=== PATIENT | female | born 1955 | race Caucasian/White ===

== ENCOUNTER → 2017-12-20 11:39 | Outpatient (CLI) | payer MEDICARE, SELFPAY ==
[2017-12-20 12:20] LABS: Absolute Lymphocyte Count 2.99 X10^3/ul (0.83-4.51); Absolute Neutrophil Count 4.3 X10^3/uL (2.0-7.7); Basophil# 0.02 X10^3/uL; Basophil% 0.2 % (0-1); Eosinophil# 0.18 X10^3/uL; Eosinophils% 2.2 % (0-5); Hematocrit 43.9 % (37-47); Hemoglobin 14.6 g/dl (12.0-15.0); Lymphocyte # 2.99 X10^3/ul (4.0); Lymphocyte % 37.3 % (19-41); Mean Corp Hgb Conc 33.3 g/gl (32-36); Mean Corpuscular Hgb 29.3 pg (27.0-32.0); Mean Corpuscular Volume 88.2 fL (81-99); Mean Platelet Vol. 9.9 fl (6.2-12.0); Monocyte# 0.56 X10^3/uL; Neutrophil # 4.26 X10^3/uL (2.7-7.7); Neutrophil % 53.2 % (47-70); Platelet Count 281 K/mm3 (150-450); RBC Distribution Width SD 44.6 fl (35.1-43.9); Red Blood Count 4.98 M/mm3 (4.2-5.4)
[2017-12-20 12:32] LABS: POSITIVE COUNT NO; POSITIVE DIFFERENTIAL NO; POSITIVE MORPHOLOGY NO
[2017-12-20 12:54] LABS: Vitamin D,25 Hydroxy 17.1 ng/mL (29.95-100.01)
[2017-12-20 13:10] LABS: ALB/GLOB Ratio 0.9 RATIO (0.9-2.4); AST(SGOT) 12 U/L (15-37); Alanine Aminotransfer ALT/SGPT 15 U/L (13-56); Albumin, Serum 3.7 g/dL (3.2-5.0); Alkaline Phosphatase 97 U/L (45-117); Anion Gap 9 (5-15); BUN 11 mg/dL (7-18); BUN/Creat Ratio 14.3 RATIO (10-20); Calcium,Total 8.7 mg/dL (8.5-10.1); Chloride 104 mmol/L (98-107); Creatinine, Serum 0.77 mg/dL (0.55-1.02); EST Glomerular Filtration Rate 81 mL/min (>60); Est Glom Filt Rate - Afr Amer 97 mL/min (>60); Glucose 78 mg/dL (74-106); Potassium 3.9 mmol/L (3.5-5.1); Protein, Total 7.7 g/dL (6.4-8.2); Sodium Level 140 mmol/L (136-145); Thyroid Stim Hormone (TSH) 3.69 uIU/mL (0.358-3.74)
[2017-12-21 14:43] LABS: Hep C Antibodies <0.1 s/co ratio (0.0-0.9)
== END ==
PROVIDERS: Visit Provider Family Medicine Geriatric Medicine
DX: E55.9 Vitamin D deficiency, unspecified (principal); R53.83 Other fatigue; Z13.89 Encounter for screening for other disorder
CPT/HCPCS: 36415; 80053; 82306; 84443; 85025; 86803

== ENCOUNTER → 2018-11-10 16:43 | Outpatient (CLI) | payer MEDICARE, SELFPAY ==
[2018-11-10 17:18] LABS: Absolute Lymphocyte Count 2.12 X10^3/ul (0.83-4.51); Absolute Neutrophil Count 3.3 X10^3/uL (2.0-7.7); Basophil# 0.02 X10^3/uL; Basophil% 0.3 % (0-1); Eosinophil# 0.31 X10^3/uL; Hematocrit 44.2 % (37-47); Hemoglobin 14.1 g/dl (12.0-15.0); Lymphocyte # 2.12 X10^3/ul (4.0); Mean Corp Hgb Conc 31.9 g/gl (32-36); Mean Corpuscular Hgb 28.6 pg (27.0-32.0); Mean Corpuscular Volume 89.7 fL (81-99); Mean Platelet Vol. 10.6 fl (6.2-12.0); Monocyte# 0.47 X10^3/uL; Monocyte% 7.5 % (0-10); Neutrophil # 3.31 X10^3/uL (2.7-7.7); Neutrophil % 53.2 % (47-70); Platelet Count 235 K/mm3 (150-450); RBC Distribution Width CV 13.6 % (11.6-14.6); RBC Distribution Width SD 44.1 fl (35.1-43.9); Red Blood Count 4.93 M/mm3 (4.2-5.4); White Blood Count 6.2 K/mm3 (4.4-11.0)
[2018-11-10 17:21] LABS: POSITIVE COUNT NO; POSITIVE DIFFERENTIAL NO; POSITIVE MORPHOLOGY NO
[2018-11-10 17:49] LABS: ALB/GLOB Ratio 0.9 RATIO (0.9-2.4); AST(SGOT) 24 U/L (15-37); Alanine Aminotransfer ALT/SGPT 20 U/L (13-56); Albumin, Serum 3.4 g/dL (3.2-5.0); Alkaline Phosphatase 103 U/L (45-117); Anion Gap 6 (5-15); BUN 14 mg/dL (7-18); BUN/Creat Ratio 16.4 RATIO (10-20); Calcium,Total 8.4 mg/dL (8.5-10.1); Chloride 106 mmol/L (98-107); Creatinine, Serum 0.86 mg/dL (0.55-1.02); EST Glomerular Filtration Rate 71 mL/min (>60); Est Glom Filt Rate - Afr Amer 86 mL/min (>60); Globulin 3.9 g/dL (2.2-4.2); Glucose 94 mg/dL (74-106); Potassium 3.9 mmol/L (3.5-5.1); Protein, Total 7.3 g/dL (6.4-8.2); Sodium Level 141 mmol/L (136-145); Thyroid Stim Hormone (TSH) 2.51 uIU/mL (0.358-3.74)
== END ==
PROVIDERS: Visit Provider Family Medicine Geriatric Medicine
DX: G40.909 Epilepsy, unspecified, not intractable, without status epilepticus (principal)
CPT/HCPCS: 36415; 80053; 84443; 85025; 87086; 87088

== ENCOUNTER → 2018-12-29 12:10 | Outpatient (CLI) | payer MEDICARE, MEDICAID, SELFPAY ==
--- NOTE | 2018-12-29 12:14 | CT_ITS ---
STUDY: CT BRAIN WITHOUT CONTRAST REASON FOR EXAM: Female, 63 years old. Seizure RADIATION DOSAGE (If Supplied By Facility): CTDIvol = ( 44.99 ) mGy, DLP = ( 796.11 ) mGycm TECHNIQUE: Transaxial CT imaging of the brain was performed without administration of intravenous contrast material. Individualized dose optimization techniques were used for this CT. COMPARISON: No relevant priors. FINDINGS: Normal soft tissue structures. Normal calvarium. There appears to be right posterior parietal encephalomalacia or schizencephaly with ex vacuo dilatation of the occipital horn of the right lateral ventricle. Normal white matter tracts of the cerebral hemispheres. Normal basal ganglia and thalami. Normal brainstem. Normal cerebellum. There is no intracranial hemorrhage. There are no findings of an acute ischemic infarction. Bilateral phthisis bulbi. Normal visualized paranasal sinuses. 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 Follow-up MRI of the brain without a be helpful nonemergently if clinically warranted. Otherwise no acute disease. Electronically Signed: Jamie Mckeon MD at 16:32 EDT , Service support ,
== END ==
PROVIDERS: Family Provider Family Medicine Geriatric Medicine; PCP Family Medicine Geriatric Medicine; Referring Provider Family Medicine Geriatric Medicine; Visit Provider Family Medicine Geriatric Medicine
DX: G40.909 Epilepsy, unspecified, not intractable, without status epilepticus (principal); M54.2 Cervicalgia
CPT/HCPCS: 70450

== ENCOUNTER → 2019-04-25 16:13 | Outpatient (CLI) | payer MEDICARE, SELFPAY ==
[2019-04-25 17:13] LABS: Absolute Lymphocyte Count 1.83 X10^3/uL (0.83-4.51); Absolute Neutrophil Count 3.8 X10^3/uL (2.0-7.7); Basophil# 0.01 X10^3/uL; Basophil% 0.2 % (0-1); Eosinophil# 0.14 X10^3/uL; Eosinophils% 2.3 % (0-5); Hemoglobin 14.5 g/dL (12.0-15.0); Lymphocyte # 1.83 X10^3/ul (4.0); Lymphocyte % 29.6 % (19-41); Mean Corp Hgb Conc 33.7 g/dL (32-36); Mean Platelet Vol. 10.1 fl (6.2-12.0); Monocyte% 6.5 % (0-10); NRBC Flagged by Analyzer 0 % (0-5); Neutrophil % 61.2 % (47-70); Platelet Count 203 K/mm3 (150-450); RBC Distribution Width CV 12.7 % (11.6-14.6); RBC Distribution Width SD 41.7 fl (35.1-43.9); Red Blood Count 4.83 M/mm3 (4.2-5.4); White Blood Count 6.2 K/mm3 (4.4-11.0)
[2019-04-25 17:55] LABS: AST(SGOT) 12 U/L (15-37); Alanine Aminotransfer ALT/SGPT 21 U/L (13-56); Albumin, Serum 3.5 g/dL (3.2-5.0); Alkaline Phosphatase 104 U/L (45-117); Anion Gap 10 (5-15); BUN 12 mg/dL (7-18); BUN/Creat Ratio 14.8 RATIO (10-20); Calcium,Total 8.3 mg/dL (8.5-10.1); Chloride 108 mmol/L (98-107); Creatinine, Serum 0.81 mg/dL (0.55-1.02); EST Glomerular Filtration Rate 75 mL/min (>60); Est Glom Filt Rate - Afr Amer 91 mL/min (>60); Globulin 3.6 g/dL (2.2-4.2); Glucose 118 mg/dL (74-106); Potassium 3.6 mmol/L (3.5-5.1); Protein, Total 7.1 g/dL (6.4-8.2); Sodium Level 141 mmol/L (136-145); Thyroid Stim Hormone (TSH) 2.84 uIU/mL (0.358-3.74)
[2019-04-25 18:07] LABS: Vitamin D,25 Hydroxy 9.4 ng/mL (29.95-100.01)
== END ==
PROVIDERS: Family Provider Family Medicine Geriatric Medicine; PCP Family Medicine Geriatric Medicine; Visit Provider Family Medicine Geriatric Medicine
DX: E55.9 Vitamin D deficiency, unspecified (principal); R53.83 Other fatigue
CPT/HCPCS: 36415; 80053; 82306; 84443; 85025

== ENCOUNTER 2020-01-20 22:14 | Inpatient (IN) | payer MEDICARE, MEDICAID, SELFPAY ==
[2020-01-20 22:15] VITALS: BP 110/89; PULSE 99; RESP 15; TEMP 36.4; O2SAT 95; BMI 29.7
--- NOTE | 2020-01-20 22:29 | EKG12_ITS ---
Test Reason : Blood Pressure : / mmHG Vent. Rate : 082 BPM Atrial Rate : 082 BPM P-R Int : 134 ms QRS Dur : 082 ms QT Int : 376 ms P-R-T Axes : 033 011 019 degrees QTc Int : 439 ms Sinus rhythm with Fusion complexes Nonspecific ST and T wave abnormality Abnormal ECG Confirmed by ABDIRAHMAN SPARROW, ELEANOR ([id number]), associate entertainment editor CELINE ANTHONY ([id number]) on 01/23/2020 9:05:05 AM Referred By: Confirmed By:ELEANOR GARY MD
--- NOTE | 2020-01-20 22:29 | CT_ITS ---
We are attempting to reach an attending provider to discuss findings. An addendum with communication details will be sent when the communication is complete. STUDY: CT ABDOMEN AND PELVIS WITH CONTRAST REASON FOR EXAM: Female, 64 years old. ABD DISTENTION NOTICED BY CAREGIVER, HX MRDD RADIATION DOSAGE (If Supplied By Facility): CTDIvol = ( 22.67 ) mGy, DLP = ( 1607.02 ) mGycm TECHNIQUE: Transaxial images were obtained from the dome of the diaphragm to the symphysis pubis without oral contrast. IV 100mL Isovue-370 was administered. Sagittal and coronal images were reconstructed. Individualized dose optimization techniques were used for this CT. COMPARISON: None. FINDINGS: Bilateral lower lobe atelectasis myocardial megaly with coronary artery calcifications. Normal liver. Normal gallbladder and extrahepatic biliary system. Normal spleen. Mild atrophy of the pancreas, otherwise normal pancreas. Normal bilateral adrenal glands. Normal right kidney. Normal left kidney. Normal distention of the stomach. Fluid within the distal esophagus suggestive of reflux. Distention of some of the small bowel loops approximately 3.5 cm. Distention of the colon diffusely with the exception of a segment of the sigmoid colon which reveals significant narrowing , mild edema of the wall along with the twisting of the corresponding vessels, combination of findings suggestive of sigmoid volvulus versus severe distal obstruction related to a stricture. There is non-visualization of the appendix. There is diffuse atherosclerotic calcification of the abdominal aorta, without a demonstrated aneurysm. Normal inferior vena cava. Normal retroperitoneum. Urinary bladder is decompressed. Normal abdominal wall. There are diffuse degenerative changes of the visualized lumbar spine. CT/Abdomen/Pelvis W IV Cont ONLY IMPRESSION: Severe distal colonic obstruction, zone of transition at the level of the sigmoid with twisting of the vessels raising the concern of sigmoid volvulus. Differential diagnosis includes nonspecific severe obstruction from a sigmoid stenosis or stricture. Clinical correlation recommended. No evidence of free air. Electronically Signed: Yennifer Vinson MD at 0:37 EDT , Service support ,
--- NOTE | 2020-01-20 22:31 | ED.DCSUM_ITS ---
- ER Visit Summary Date of Service: 01/20/20 Chief Complaint: Abdominal distention History of Present Illness: The patient is a 64 F that is legally blind and has intermittent seizures and high cholesterol. She has had prior hip surgery. Reportedly no prior abdominal surgeries. She has a caregiver with her. Patient reportedly had a distended abdomen for 2 to 3 days. Starting on . Denies any nausea or vomiting. No diarrhea. Reportedly no constipation or dysuria. No fever or chills. Patient denies any pain. She has had decreased oral intake. Physical Examination: Older Female accompanied by her caregiver. Vital signs are stable and afebrile. She is in no distress. H EENT exam moist because membranes. She is blind. Neck nontender. Lungs clear to auscultation. Heart regular rhythm rate about 90. Abdomen is distended. Firm. But not tender. I do not see any obvious hernia or. I cannot appreciate a mass but she is very distended. She does have decreased bowel sounds. She is not complaining of any tenderness to palpation. There is no pulsatile mass. She is moving all 4 extremities. She has trace edema in her lower extremities. Neurologically she is awake and alert with no focal motor deficits. Test Results: EKG is a normal sinus rhythm rate of 82 with no acute signs of ischemia. CBC white count of 10. Hemoglobin 14. No bands. Chemistries potassium of 2.9. Normal gap of 8 normal creatinine. Liver enzymes normal. Lipase normal. Lactic acid is elevated 3.2. CAT scan of the abdomen pelvis with IV contrast reveals distended small and large bowel. And an obvious bowel obstruction. I am awaiting the formal radiologist interpretation. I did review the film myself already. Radiologist did call and she believes the patient may have a sigmoid volvulus which the general surgeon I had previously discussed. Emergency Department Course and Treatment: Older female with distended abdomen differential diagnosis would include bowel obstruction, urinary retention, c onstipation versus other etiologies. She will undergo a CAT scan and labs. Currently she does not want anything for pain. After the NG she requested something for nausea was given Zofran IV. Treatment Plan: Patient has an obvious bowel obstruction. I discussed with the general surgeon on-call Dr. Nati Jones. Patient will receive an NG. She will be admitted to the hospitalist with already discussed the care with also. I did go over test results with the patient. Repeat exam of her abdomen at midnight again she remains nontender. Disposition: Admission Impression: Acute abdominal distention secondary to bowel obstruction secondary to acute sigmoid volvulus Legally blind This note was generated with Sp[employer]ly dictation software. It may contain incorrect words, spelling, and punctuation that were not noted in review of the chart prior to signing ED Disposition - Plan for ED Patient:
[2020-01-20 22:46] LABS: Absolute Lymphocyte Count 2.44 X10^3/uL (0.83-4.51); Basophil# 0.05 X10^3/uL; Basophil% 0.5 % (0-1); Differential Indicated SCAN CRITERIA MET; Eosinophil# 0.21 X10^3/uL; Eosinophils% 2.1 % (0-5); Hematocrit 44.8 % (37-47); Hemoglobin 14.5 g/dL (12.0-15.0); Lymphocyte # 2.44 X10^3/ul (4.0); Mean Corp Hgb Conc 32.4 g/dL (32-36); Mean Corpuscular Hgb 29.2 pg (27.0-32.0); Mean Corpuscular Volume 90.3 fL (81-99); Mean Platelet Vol. 10.5 fl (6.2-12.0); Monocyte# 1.38 X10^3/uL; Monocyte% 13.6 % (0-10); NRBC Flagged by Analyzer 0 % (0-5); Neutrophil # 6.03 X10^3/uL (2.7-7.7); Neutrophil % 59.2 % (47-70); POSITIVE COUNT YES; RBC Distribution Width CV 14.4 % (11.6-14.6); RBC Distribution Width SD 47.1 fl (35.1-43.9); Red Blood Count 4.96 M/mm3 (4.2-5.4); White Blood Count 10.2 K/mm3 (4.4-11.0)
[2020-01-20] MEDS: 0.9% Normal Saline 1,000 ML 125 ML IV (23:00)
[2020-01-20 23:09] LABS: Differential Comment SCANNED
[2020-01-20 23:10] LABS: Platelet Estimate ADEQUATE (ADEQ)
[2020-01-20 23:12] LABS: AST(SGOT) 34 U/L (15-37); Alanine Aminotransfer ALT/SGPT 17 U/L (13-56); Albumin, Serum 3.2 g/dL (3.2-5.0); Alkaline Phosphatase 77 U/L (45-117); Anion Gap 8 (5-15); BUN 16 mg/dL (7-18); Bilirubin, Direct 0.11 mg/dL (0.00-0.30); Calcium,Total 8.5 mg/dL (8.5-10.1); Chloride 106 mmol/L (98-107); Creatinine, Serum 1.07 mg/dL (0.55-1.02); EST Glomerular Filtration Rate 55 mL/min (>60); Est Glom Filt Rate - Afr Amer 66 mL/min (>60); Estimated Creatinine Clearance 39.03 ml/min; Globulin 3.9 g/dL (2.2-4.2); Glucose 127 mg/dL (74-106); Lipase 52 U/L (73-393); Potassium 2.9 mmol/L (3.5-5.1); Protein, Total 7.1 g/dL (6.4-8.2); Sodium Level 142 mmol/L (136-145)
[2020-01-20 23:13] LABS: Lactic Acid 3.2 mmol/L (0.4-1.9)
[2020-01-20 23:57] LABS: Bacteria 0 SEEN /hpf (None Seen); Red Blood Cells-Urine 0 SEEN /hpf (0-5)
[2020-01-21] VITALS (12 sets, daily range): BP systolic 100–130; BP diastolic 49–78; PULSE 66–84; RESP 14–18; TEMP 36.3–37.1; O2SAT 92–100; BMI 29.8
--- NOTE | 2020-01-21 | RAD_ITS ---
STUDY: X-RAY - ABDOMEN/PELVIS REASON FOR EXAM: Female, 64 years old. NG TUBE PLACEMENT TECHNIQUE: Single AP view of the abdomen / pelvis. COMPARISON: None. FINDINGS: Mild left basilar density suggestive of atelectasis versus infiltrate. No pleural effusion. A nasogastric tube is seen with the tip within the gastric body junction with the antrum. There is marked diffuse distention of the colon. There is distention of the small bowel within the left side of the abdomen up to a diameter of 3.0 cm. There is no demonstrated free abdominal air. The visualized liver, spleen and kidneys are grossly normal in size and morphology. Normal soft tissue structures. Normal visualized osseous structures. RAD/Abdomen Single View (Portable) IMPRESSION: Diffuse colonic dilatation as described. Please see accompanying CT of the abdomen and pelvis report. Electronically Signed: Yennifer Vinson MD at 0:44 EDT , Service support ,
[2020-01-21 00:13] LABS: Color, Urine Yellow (Yellow); Glucose, Dipstick Normal (Normal); Ketone-Dipstick Negative (Negative); Leukocyte Esterase-Dipstick 25 /ul (Negative); Nitrite-Dipstick Negative (Negative); Occult Blood-Urine Negative /ul (Negative); Protein-Dipstick 30 mg/dl (Negative); Urine Clarity Clear (Clear); Urine Urobilinogen 4 mg/dl (Normal); Urine pH 6.5 (5.0 - 8.0)
[2020-01-21 00:17] LABS: Urine Bilirubin Dipstick 1 mg/dL (Negative)
[2020-01-21 00:19] LABS: White Blood Cells 5-10 SEEN /hpf (0-5)
[2020-01-21] MEDS: Ondansetron 4 MG/2 ML Vial IV (00:19)
[2020-01-21 00:20] LABS: Mucous, Urine RARE /hpf (<or=2+); Squamous Epithelial Cells - UA 0-5 SEEN /hpf (5-10); Transitional Epithelial - Ur 0-5 SEEN /hpf (0-5)
--- NOTE | 2020-01-21 00:55 | HP.PCM_ITS ---
History of Present Illness Date of Admission: 01/21/20 The patient is a 64 year old F presented to the ER accompanied with her caregiver and POA Marilee Harwich. Patient has been living with Marilee for 7 years-spoke with Marilee on the phone. Patient is a poor historian. Marilee did state patient is blind and does have past medical history for mild mental retardation, seizure disorder?her last seizure was about 2 to 3 months ago Marilee describes it as mild to states she became quiet and was chronic confused. Patient normally has Marilee around for bath time. On Wednesday she states her abdomen looked normal on it seemed a little bit distended but today it seemed very distended. She also had decreased p.o. intake today which is not like her per the POA. Patient and POA denies any nausea or vomiting. NG was placed in the ER and returned 400 cc, CT abdomen pelvis was consistent with a sigmoid volvulus with distended stomach, small bowel, colon up to the distal sigmoid. Patient's white blood count was within normal limits, potassium was 2.9 and lactate was 3.2 along with little bit elevated creatinine for the pa tient and she is getting IV fluids. Patient and POA denies any previous colonoscopies, only surgery is a left hip replacement. Past Medical History Medical History: Medical History (Last Updated 01/21/20 @ 01:[address] Nati Manning MD) Mild mental handicap F70 Seizure disorder G40.909 Allergies bee venom protein (honey bee) Allergy (Verified 01/20/20 22:20) Anaphylaxis Home Medications: Ambulatory Orders Medication Instructions Recorded Gabapentin [Neurontin] 300 mg PO BIDCM 01/20/20 Oxcarbazepine 5 ml PO DAILY 01/20/20 Simvastatin [Zocor] 20 mg PO QHS 01/20/20 Surgical History: - - left hip Smoking Status: Never smoker VTE Information - Inpt Only VTE Present on Admission: Yes VTE Mechan Device Prophylaxis: SCD's - Physical Exam Vitals/I&O's: Vital Signs Temp Pulse Resp BP Pulse Ox 97.6 F L 99 15 110/89 H 95 01/20/20 22:15 01/20/20 22:15 01/20/20 22:15 01/20/20 22:15 01/20/20 22:15 Oxygen Delivery Method Room Air Weight: 157 lb 3.033 oz Body Mass Index (BMI) 29.7 General: Alert, Cooperative, No apparent distress HEENT: - - pt is blind Lungs: Normal air movement Cardiovascular: Regular rate Abdomen: Non Tender, Distended Extremities: No clubbing, No cyanosis, No edema Psych/Mental Status: Flat Affect Laboratory Results 01/20/20 22:40: WBC 10.2, RBC 4.96, Hgb 14.5, Hct 44.8, MCV 90.3, MCH 29.2, MCHC 32.4, RDW Std Deviation 47.1 H, RDW Coeff of Jose 14.4, Plt Count TURNER SPLITTER MACHINE OPERATOR, MPV 10.5, Immature Gran % (Auto) 0.600, Neut % (Auto) 59.2, Lymph % (Auto) 24.0, [place] % ( Auto) 13.6 H, Eos % (Auto) 2.1, Baso % (Auto) 0.5, Absolute Neuts (auto) 6.0, Absolute Lymphs (auto) 2.44, Nucleated RBC % 0, Differential Comment SCANNED, Platelet Estimate ADEQUATE 01/20/20 22:40: Sodium 142, Potassium 2.9 L, Chloride 106, Carbon Dioxide 28.0, Anion Gap 8, BUN 16, Creatinine 1.07 H, Estim Creat Clear Calc 39.03, Est GFR (MDRD) Af Amer 66, Est GFR (MDRD) Non-Af 55 L, BUN/Creatinine Ratio 15.0, Glucose 127 H, Calcium 8.5, Total Bilirubin 0.70, Direct Bilirubin 0.11, AST 34, ALT 17, Alkaline Phosphatase 77, Total Protein 7.1, Albumin 3.2, Globulin 3.9, Lipase 52 L 01/20/20 22:40: Lactic Acid 3.2 H* 01/20/20 23:50: Urine Color Yellow, Urine Clarity Clear, Urine pH 6.5, Ur Specific [place] 1.010, Urine Protein 30 H, Urine Glucose (UA) Normal, Urine Ketones Negative, Urine Occult Blood Negative, Urine Nitrite Negative, Urine Bilirubin 1 H, Urine Urobilinogen 4 H, Ur Leukocyte Esterase 25 H, Urine RBC 0 SEEN, Urine WBC 5-10 SEEN, Ur Squamous Epith Cells 0-5 SEEN, Ur Transition Epith Cell 0-5 SEEN, Urine Bacteria 0 SEEN, Urine Mucus RARE Current Medications Sodium Chloride () 1,000 mls @ 125 mls/hr IV .Q8H [facility] Last Admin: 01/20/20 23:00 Dose: 125 mls/hr Documented by: Assessment/Plan 64-year-old female with a sigmoid volvulus I have discussed the above with the patient and patient's POA Marilee Harwich. Plan for decompressive sigmoidoscopy with insertion of rectal tube, discussed with patient she could possibly still need future surgery-- tonight patient is unsure about any future surgery but is agreeable for the sigmoidoscopy. I have explained the risks/benefits of the procedure and described the procedure. I have discussed the risks with the patient, including but not limited to: infection, bleeding, perforation of the GI tract requiring emergency surgery, inability to complete the procedure, injury to any internal organs, complications of anesthesia, etc. - the patient understands and agrees to proceed. I have answered all the patient's questions to the patient's & POA's satisfaction and the patient has no further questions. Nati Manning M.D. Pager: [phone] [facility] [address] [place] [address], [address] [place] [address] Office: [phone]
--- NOTE | 2020-01-21 01:35 | COL_PTH ---
PATIENT: LEATHA KIM LOC: [facility] U#:[id number] AGE/SX: 64/F ROOM: [facility] RE01/21/[address]: Dr. Nati Manning MD : [id number] BED: 1 DIS: 01/27/2020 SPEC #: [id number] RECD: 01/24/20 10:42 STATUS: JARRED REQ #: [id number] DERIAN: 01/21/20 01:[address]: Nati Manning DEPT: SURGICAL PATHOLOGY RECD BY: Bill Cadet ENTERED: 01/25/20 10:27 SP TYPE: COLON OTHR DR: MD Dr. Héctor Gamino Chi, MD Tissues: A - Colon, NOS B - Colon Donuts C - Colon Donuts Procedures: Surgery Specimen Level III Surgery Specimen Level V HEADER OPERATION: Laparoscopic sigmoid colectomy PRE-OP DIAGNOSIS: Sigmoid volvulus TISSUE SUBMITTED: A - Sigmoid colon, staple diaz distal end, B - Distal (rectal) donut, C - Proximal (sigmoid) donut MICROSCOPIC DIAGNOSIS A. Sigmoid colon, colectomy: Segment of colon with mild submucosal edematous changes, clinically sigmoid volvulus. B. Distal (rectal) donut: A donut-shaped piece of colonic donut tissue, no pathologic diagnosis. C. Proximal (sigmoid) donut: A donut-shaped piece of colonic donut tissue, no pathologic diagnosis. SJ:bhaskar 01/26/20 MICROSCOPIC DESCRIPTION Slides are reviewed. GROSS DESCRIPTION A - Received in fixative is one container labeled with the patient's name and designated sigmoid colon. The specimen consists of a segment of colon with attached pericolonic adipose tissue measuring 40 cm in length and 7 to 10 cm in diameter. One resection margin is stapled identified as distal end. The proximal margin is open. The lumen contains fecal material. No mucosal lesion is identified. Sections reveal edematous cut surfaces. Sections of the pericolonic adipose tissue do not reveal any obviously enlarged lymph node. Cat Swamper sections are submitted in seven cassettes as follows: 1 - proximal resection margin, 2 - distal resection margin, 3-6 - bowel wall, 7 - pericolonic adipose tissue. B - Received in fixative is one container labeled with the patient's name and designated distal (rectal) donut. The specimen consists of a donut shaped piece of colonic tissue measuring 2.5 x 2 x 1 cm. Multiple parminder are noted. Cat Swamper sections are submitted in one cassette. C - Received in fixative is one container labeled with the patient's name and designated proximal (sigmoid) donut. The specimen consists of a donut shaped piece of colonic tissue measuring 2 x 2 x 1 cm. Multiple parminder are noted. Cat Swamper sections are submitted in one cassette. / SJ:bhaskar 01/25/20 TC:5 CPT: 31838, 01058 x2
[2020-01-21 01:44] LABS: Magnesium 2.1 mg/dL (1.6-2.6)
--- NOTE | 2020-01-21 02:04 | RAD_ITS ---
STUDY: X-RAY - ABDOMEN/PELVIS REASON FOR EXAM: Female, 64 years old. RECTAL TUBE PLACEMENT TECHNIQUE: Single AP view of the abdomen / pelvis. COMPARISON: 01/21/2020. FINDINGS: Questionable minimal left-sided pleural effusion with left base atelectasis. Persistent distention of the colon and the left-sided small bowel loops demonstrated, less severe compared to prior examination. There is a tubular structure demonstrated along the trajectory of the sigmoid and deep projecting at the right upper quadrant. There is a nasogastric tube in place with the tip at the level of the gastric antrum. There is no demonstrated free abdominal air. Suboptimally seen abdominal viscera otherwise the visualized liver, spleen and kidneys are grossly normal in size and morphology. Normal soft tissue structures. Diffuse osteopenia along with left-sided hip prosthesis in place. RAD/Abdomen Single View (Portable) IMPRESSION: Decreased distention of the colon as described above. Lines and tubes as described. Electronically Signed: Yennifer Vinson MD at 3:05 EDT , Service support ,
[2020-01-21 02:42] LABS: Reflex Lactate? Y
[2020-01-21] MEDS: 0.9% Normal Saline 1,000 ML 125 ML IV (03:05)
[2020-01-21] MEDS: Potassium Chloride 10mEq/100mL 10 MEQ/100 ML IV.SOLN. 100 MEQ IV BOLUS ×4 (03:07→18:10)
[2020-01-21 04:54] LABS: Absolute Lymphocyte Count 2.53 X10^3/uL (0.83-4.51); Absolute Neutrophil Count 5.6 X10^3/uL (2.0-7.7); Basophil# 0.05 X10^3/uL; Basophil% 0.5 % (0-1); Eosinophil# 0.27 X10^3/uL; Eosinophils% 2.7 % (0-5); Hematocrit 40.6 % (37-47); Hemoglobin 13.3 g/dL (12.0-15.0); Lymphocyte # 2.53 X10^3/ul (4.0); Lymphocyte % 25.7 % (19-41); Mean Corp Hgb Conc 32.8 g/dL (32-36); Mean Corpuscular Hgb 29.8 pg (27.0-32.0); Mean Corpuscular Volume 90.8 fL (81-99); Mean Platelet Vol. 9.5 fl (6.2-12.0); Monocyte# 1.38 X10^3/uL; NRBC Flagged by Analyzer 0 % (0-5); Neutrophil # 5.56 X10^3/uL (2.7-7.7); Neutrophil % 56.7 % (47-70); Platelet Count 287 K/mm3 (150-450); RBC Distribution Width CV 14.2 % (11.6-14.6); RBC Distribution Width SD 47.2 fl (35.1-43.9); Red Blood Count 4.47 M/mm3 (4.2-5.4); White Blood Count 9.8 K/mm3 (4.4-11.0)
[2020-01-21 05:17] LABS: Lactic Acid 0.9 mmol/L (0.4-1.9)
[2020-01-21 05:22] LABS: Anion Gap 5 (5-15); BUN 13 mg/dL (7-18); BUN/Creat Ratio 18.3 RATIO (10-20); Calcium,Total 7.6 mg/dL (8.5-10.1); Chloride 106 mmol/L (98-107); Creatinine, Serum 0.71 mg/dL (0.55-1.02); EST Glomerular Filtration Rate 88 mL/min (>60); Est Glom Filt Rate - Afr Amer 106 mL/min (>60); Estimated Creatinine Clearance 41.76 ml/min; Glucose 87 mg/dL (74-106); Potassium 2.5 mmol/L (3.5-5.1); Sodium Level 143 mmol/L (136-145)
[2020-01-21 06:15] LABS: Magnesium 2.2 mg/dL (1.6-2.6)
[2020-01-21] MEDS: Menthol/Lanolin/Calamine/Znox 113 GM Tube 1 APPLIC TOPICAL ×3 (06:15→22:21)
--- NOTE | 2020-01-21 08:05 | CPS ---
pt sleeping...SMI held
[2020-01-21] MEDS: Potassium Chloride 10mEq/100mL 10 MEQ/100 ML IV.SOLN. 80 MEQ IV BOLUS ×3 (08:08→11:31)
--- NOTE | 2020-01-21 09:54 | RAD_ITS ---
STUDY: X-RAY - ABDOMEN/PELVIS REASON FOR EXAM: Female, 64 years old. adjusted rectal tube, previous sigmoid volvulus TECHNIQUE: Single AP view of the abdomen / pelvis. COMPARISON: 21 January 2020. FINDINGS: Normal visualized lung bases. Tube overlies the mid lower pelvic region likely within the rectum. Compared to previous exam there is reduced colonic air and central abdominal air. There is no demonstrated free abdominal air. The visualized liver, spleen and kidneys are grossly normal in size and morphology. The bladder demonstrates contrast filling. Normal soft tissue structures. Normal visualized osseous structures. RAD/Abdomen Single View (Portable) IMPRESSION: Compared to previous there is reduced colonic and central bowel air consistent with reduced distention. Electronically Signed: Aj Lanza DO at 10:37 EDT , Service support ,
--- NOTE | 2020-01-21 09:56 | PCM.PN.SRG ---
Subjective: Patient has been having liquid stool from his butt her bottom/rectal tube, abdomen is still soft patient denies any abdominal pain. Minimal out of the NG. Patient potassium was 2.5 this morning and she did get 40 KCl down her NG as well as getting 40 KCl through her IV. - Physical Exam Vitals/I&O's: Vital Signs Temp Pulse Resp BP Pulse Ox 98.4 F 70 16 129/63 H 98 01/21/20 09:29 01/21/20 09:35 01/21/20 09:29 01/21/20 09:29 01/21/20 09:29 Oxygen Delivery Method Room Air Weight: 157 lb 10.088 oz Body Mass Index (BMI) 29.7 Intake and Output for Last 24 Hours 01/19/20 01/20/20 01/21/20 23:59 23:59 23:59 Intake Total 850.42 / 850.42 Output Total 250 / 250 Balance 600.42 / 600.42 General: Alert, Cooperative, No apparent distress HEENT: - - Patient's legally blind Lungs: Normal air movement Cardiovascular: Regular rate Abdomen: Soft, Non Tender, Non-Distended, - - Rectal tube still to be in place, draining liquid stool did pull back about 10 cm and redressed area Extremities: No clubbing, No cyanosis Skin: Excoriated - Underneath bilateral breast Psych/Mental Status: Flat Affect Laboratory Results 01/20/20 22:40: WBC 10.2, RBC 4.96, Hgb 14.5, Hct 44.8, MCV 90.3, MCH 29.2, MCHC 32.4, RDW Std Deviation 47.1 H, RDW Coeff of Jose 14.4, Plt Count COMMUNITY RELATIONS ASSISTANT, MPV 10.5, Immature Gran % (Auto) 0.600, Neut % (Auto) 59.2, Lymph % (Auto) 24.0, [place] % (Auto) 13.6 H, Eos % (Auto) 2.1, Baso % (Auto) 0.5, Absolute Neuts (auto) 6.0, Absolute Lymphs (auto) 2.44, Nucleated RBC % 0, Differential Comment SCANNED, Platelet Estimate ADEQUATE 01/20/20 22:40: Sodium 142, Potassium 2.9 L, Chloride 106, Carbon Dioxide 28.0, Anion Gap 8, BUN 16, Creatinine 1.07 H, Estim Creat Clear Calc 39.03, Est GFR (MDRD) Af Amer 66, Est GFR (MDRD) Non-Af 55 L, BUN/Creatinine Ratio 15.0, Glucose 127 H, Calcium 8.5, Total Bilirubin 0.70, Direct Bilirubin 0.11, AST 34, ALT 17, Alkaline Phosphatase 77, Total Protein 7.1, Albumin 3.2, Globulin 3.9, Lipase 52 L 01/20/20 22:40: Lactic Acid 3.2 H* 01/20/20 22:40: Magnesium 2.1 01/20/20 23:50: Urine Color Yellow, Urine Clarity Clear, Urine pH 6.5, Ur Specific [place] 1.010, Urine Protein 30 H, Urine Glucose (UA) Normal, Urine Ketones Negative, Urine Occult Blood Negative, Urine Nitrite Negative, Urine Bilirubin 1 H, Urine Urobilinogen 4 H, Ur Leukocyte Esterase 25 H, Urine RBC 0 SEEN, Urine WBC 5-10 SEEN, Ur Squamous Epith Cells 0-5 SEEN, Ur Transition Epith Cell 0-5 SEEN, Urine Bacteria 0 SEEN, Urine Mucus RARE 01/21/20 04:40: Lactic Acid 0.9 01/21/20 04:40: WBC 9.8, RBC 4.47, Hgb 13.3, Hct 40.6, MCV 90.8, MCH 29.8, MCHC 32.8, RDW Std Deviation 47.2 H, RDW Coeff of Jose 14.2, Plt Count 287, MPV 9.5, Immature Gran % (Auto) 0.400, Neut % (Auto) 56.7, Lymph % (Auto) 25.7, [place] % (Auto) 14.0 H, Eos % (Auto) 2.7, Baso % (Auto) 0.5, Absolute Neuts (auto) 5.6, Absolute Lymphs (auto) 2.53, Nucleated RBC % 0 01/21/20 04:40: Sodium 143, Potassium 2.5 L*, Chloride 106, Carbon Dioxide 32.0, Anion Gap 5, BUN 13, Creatinine 0.71, Estim Creat Clear Calc 41.76, Est GFR (MDRD) Af Amer 106, Est GFR (MDRD) Non-Af 88, BUN/Creatinine Ratio 18.3, Glucose 87, Calcium 7.6 L 01/21/20 04:40: Magnesium 2.2 Current Medications Acetaminophen (Tylenol) 650 mg PO Q6H PRN PRN PRN Reason: Pain Score 1-10/10 Calamine/Phenol (Calmoseptine Ointment) 1 applic TOPICAL TID ON LICENSE OF [facility]; Protocol Last Admin: 01/21/20 06:15 Dose: 1 appful Documented by: Gabapentin (Neurontin) 300 mg PO BIDCM ON LICENSE OF [facility] Sodium Chloride () 1,000 mls @ 125 mls/hr IV .Q8H [facility] Last Admin: 01/21/20 03:21 Dose: Not Given Documented by: Pantoprazole Sodium 40 mg/ (Sodium Chloride) 110 mls @ 330 mls/hr IV Q24 ON LICENSE OF [facility] Last Infusion: 01/21/20 05:05 Dose: Infused Documented by: Sodium Chloride () 250 mls @ 15 mls/hr IV .[id number] PRN PRN Reason: Saline Flush Sodium Chloride () 250 mls @ 15 mls/hr IV .[id number] PRN PRN Reason: Additional IVPB Infusion Potassium Chloride () 10 meq in 100 mls @ 100 mls/hr IV BOLUS Q1H ON LICENSE OF [facility] Stop: 01/21/20 09:59 Last Admin: 01/21/20 08:08 Dose: 80 mls/hr Documented by: Fluconazole (Diflucan) 200 mg in 100 mls @ 100 mls/hr IV X1 ONE Stop: 01/21/20 10:52 Nystatin (Mycostatin Powder) 1 applic TOPICAL BID ON LICENSE OF [facility]; Protocol Ondansetron HCl (Zofran) 4 mg IV Q8H PRN PRN PRN Reason: NAUSEA Oxcarbazepine (Trileptal) 300 mg PO DAILY ON LICENSE OF [facility] Sodium Chloride () 10 - 40 ml IV UD PRN PRN Reason: SALINE FLUSH Medical Necessity - Tobacco Use Smoking Status: Never smoker Assessment/Plan 64-year-old female with a sigmoid volvulus that is post decompressive sigmoidoscopy, and placement of rectal tube 1. Patient has been having liquid stool from her rectal tube. Rectal tube has been removed about 10 cm we will check a KUB. Patient has had minimal output from her NG we will clamp and possibly remove later today depending on residual. Continue IV fluids. 2. Patient does have some excoriation under bilateral breasts we will give her 1 dose of IV Diflucan as well as nystatin to the area and consult wound care 3. Hypokalemia patient is getting 40 mEq IV piggyback as well as 40 mEq liquid down her NG for potassium of 2.5 we will recheck this afternoon as well. 4. lovenox/protonix Nati Manning M.D. Pager: [phone] [facility] [address] [place] [address], [facility], [address] [place] [address] Office: [phone]
[2020-01-21] MEDS: OXcarbazepine 300 MG Tablet PO (09:57)
[2020-01-21] MEDS: Gabapentin 300 MG Capsule PO ×2 (09:57→16:20)
[2020-01-21] MEDS: 0.9% Normal Saline 1,000 ML 100 ML IV (11:31)
[2020-01-21] MEDS: Nystatin Powder 15gm Bottle 1 APPLIC TOPICAL ×2 (11:31→22:21)
[2020-01-21] MEDS: Enoxaparin 40 MG/0.4 ML Syringe SC (14:50)
--- NOTE | 2020-01-21 15:09 | NURSING ---
Dr Manning notified no drainage from ng tube, she ordered to dc it.
[2020-01-21 15:21] LABS: Potassium 2.7 mmol/L (3.5-5.1)
[2020-01-21] MEDS: Lactated Ringers 1,000 ML 100 ML IV (16:20)
[2020-01-22] VITALS (9 sets, daily range): BP systolic 107–125; BP diastolic 46–63; PULSE 63–96; RESP 16–18; TEMP 36.4–37.2; O2SAT 92–93
[2020-01-22 00:09] LABS: Potassium 2.4 mmol/L (3.5-5.1)
[2020-01-22 01:04] LABS: Phosphorus 3.1 mg/dL (2.5-4.9)
[2020-01-22] MEDS: Lactated Ringers 1,000 ML 100 ML IV (03:19)
--- NOTE | 2020-01-22 05:55 | RAD_ITS ---
STUDY: X-RAY - ABDOMEN/PELVIS REASON FOR EXAM: Female, 64 years old. SIGMOID VOLVULUS TECHNIQUE: Single AP view of the abdomen / pelvis. COMPARISON: Comparison is made with prior study dated January 21, 2020. FINDINGS: There is less gaseous distention of the bowel as compared to prior study. A moderate amount of fecal material is seen in the right hemicolon. The visualized liver, spleen and kidneys are grossly normal in size and morphology. Normal soft tissue structures. There are diffuse degenerative changes of the visualized lumbar spine. The patient is status post left hip replacement. RAD/Abdomen Single View (Portable) IMPRESSION: Less gaseous distention of the bowel as compared to prior study. Electronically Signed: Billy Cagle, at 8:49 EDT , Service support ,
[2020-01-22] MEDS: Menthol/Lanolin/Calamine/Znox 113 GM Tube 1 APPLIC TOPICAL ×3 (06:20→21:12)
[2020-01-22 06:31] LABS: Anion Gap 9 (5-15); BUN 6 mg/dL (7-18); BUN/Creat Ratio 10.4 RATIO (10-20); Calcium,Total 7.4 mg/dL (8.5-10.1); Chloride 112 mmol/L (98-107); Creatinine, Serum 0.58 mg/dL (0.55-1.02); EST Glomerular Filtration Rate 111 mL/min (>60); Est Glom Filt Rate - Afr Amer 134 mL/min (>60); Estimated Creatinine Clearance 41.76 ml/min; Glucose 54 mg/dL (74-106); Potassium 2.3 mmol/L (3.5-5.1); Sodium Level 146 mmol/L (136-145)
[2020-01-22] MEDS: Potassium Chloride 10mEq/100mL 10 MEQ/100 ML IV.SOLN. 100 MEQ IV BOLUS ×10 (07:34→23:38)
--- NOTE | 2020-01-22 08:03 | PCM.PN.SRG ---
Subjective: Patient's potassium this morning is 2.3, patient had a total of 120 mEq yesterday of KCl total of 60 p.o. and 60 IV as she was 2.5 yesterday. Patient sodium is up little bit at 146 was changed to LR yesterday as well. Patient also had some urinary retention was getting straight cath as she had a draining rectal tube rectal tube was removed last night as patient was having liquid stool from around the tube and through the tube still and Arguello was placed after rectal tube removed. - Physical Exam Vitals/I&O's: Vital Signs Temp Pulse Resp BP Pulse Ox 97.6 F L 66 16 108/46 L 93 01/22/20 03:17 01/22/20 07:35 01/22/20 03:17 01/22/20 03:17 01/22/20 03:17 Oxygen Delivery Method Room Air Weight: 157 lb 10.088 oz Body Mass Index (BMI) 29.7 Intake and Output for Last 24 Hours 01/20/20 01/21/20 01/22/20 23:59 23:59 23:59 Intake Total 2943.75 / 2943.75 1000 / 1000 Output Total 1999 / 1999 900 / 900 Balance 943.75 / 943.75 100 / 100 General: Alert, Cooperative, No apparent distress Lungs: Normal air movement Cardiovascular: Regular rate Abdomen: Soft, Non Tender, Non-Distended Extremities: No clubbing, No cyanosis Psych/Mental Status: Flat Affect Laboratory Results 01/21/20 14:15: Potassium 2.7 L* 01/21/20 23:25: Potassium 2.4 L* 01/21/20 23:25: Phosphorus 3.1 01/22/20 05:46: Sodium 146 H, Potassium 2.3 L*, Chloride 112 H, Carbon Dioxide 25.0, Anion Gap 9, BUN 6 L, Creatinine 0.58, Estim Creat Clear Calc 41.76, Est GFR (MDRD) Af Amer 134, Est GFR (MDRD) Non-Af 111, BUN/Creatinine Ratio 10.4, Glucose 54 L, Calcium 7.4 L 01/22/20 05:46: Magnesium 2.0 Current Medications Acetaminophen (Tylenol) 650 mg PO Q6H PRN PRN PRN Reason: Pain Score 1-10/10 Calamine/Phenol (Calmoseptine Ointment) 1 applic TOPICAL TID [facility]; Protocol Last Admin: 01/22/20 06:20 Dose: 1 appful Documented by: Enoxaparin Sodium (Lovenox) 40 mg SC DAILY [facility] Last Admin: 01/21/20 14:50 Dose: 40 mg Documented by: Gabapentin (Neurontin) 300 mg PO BIDCM [facility] Last Admin: 01/21/20 16:20 Dose: 300 mg Documented by: Pantoprazole Sodium 40 mg/ (Sodium Chloride) 110 mls @ 330 mls/hr IV Q24 [facility] Last Infusion: 01/21/20 05:05 Dose: Infused Documented by: Sodium Chloride () 250 mls @ 15 mls/hr IV .[id number] PRN PRN Reason: Saline Flush Sodium Chloride () 250 mls @ 15 mls/hr IV .[id number] PRN PRN Reason: Additional IVPB Infusion Lactated Ringer's () 1,000 mls @ 100 mls/hr IV .Q10H [facility] Last Admin: 01/22/20 03:19 Dose: 100 mls/hr Documented by: Potassium Chloride () 10 meq in 100 mls @ 100 mls/hr IV BOLUS Q1H [facility] Stop: 01/22/20 10:59 Last Admin: 01/22/20 07:34 Dose: 100 mls/hr Documented by: Potassium Chloride () 10 meq in 100 mls @ 100 mls/hr IV BOLUS Q1H [facility] Stop: 01/22/20 12:59 Nystatin (Mycostatin Powder) 1 applic TOPICAL BID [facility]; Protocol Last Admin: 01/21/20 22:21 Dose: 1 applicatio Documented by: Ondansetron HCl (Zofran) 4 mg IV Q8H PRN PRN PRN Reason: NAUSEA Oxcarbazepine (Trileptal) 300 mg PO DAILY [facility] Last Admin: 01/21/20 09:57 Dose: 300 mg Documented by: Sodium Chloride () 10 - 40 ml IV UD PRN PRN Reason: SALINE FLUSH Medical Necessity - Tobacco Use Smoking Status: Never smoker Assessment/Plan 64-year-old female with a sigmoid volvulus that is post decompressive sigmoidoscopy, and placement of rectal tube, hypokalemia 1. KUB did show some occasional dilated bowel, patient continues to have diarrhea after rectal tube removed. 2. Patient does have some excoriation under left breast, nystatin to the area and consult wound care 3. Hypokalemia patient was 2.3 this morning got a total of 120 mEq yesterday creatinine is normal plan to check urine electrolytes--currently replacing 60 mEq KCl IV and 40 mEq KCl p.o. and will recheck BMP 3 hours after IV complete. Patient is not on any known potassium depleting diuretics, with normal magnesium, phosphorus, creatinine & blood pressure within normal limits 4. lovenox/protonix Nati Manning M.D. Pager: [phone] [facility] [address] [place] [address], [facility], [address] [place] [address] Office: [phone]
[2020-01-22] MEDS: Gabapentin 300 MG Capsule PO ×2 (08:51→17:05)
[2020-01-22] MEDS: Nystatin Powder 15gm Bottle 1 APPLIC TOPICAL ×2 (08:52→21:12)
[2020-01-22] MEDS: OXcarbazepine 300 MG Tablet PO (08:52)
[2020-01-22 09:06] LABS: Bacteria 0 SEEN /hpf (None Seen); Mucous, Urine 0 SEEN /hpf (<or=2+); Red Blood Cells-Urine 0 SEEN /hpf (0-5); Squamous Epithelial Cells - UA 0 SEEN /hpf (5-10)
--- NOTE | 2020-01-22 09:08 | NURSING ---
wound photo: left breast
[2020-01-22 09:12] LABS: Urine Chloride 146 mmol/L (Not Establ.); Urine Sodium 144 mmol/L (Not Establ.)
[2020-01-22 09:16] LABS: Color, Urine Yellow (Yellow); Glucose, Dipstick Normal (Normal); Leukocyte Esterase-Dipstick 25 /ul (Negative); Nitrite-Dipstick Negative (Negative); Occult Blood-Urine Negative /ul (Negative); Protein-Dipstick Negative (Negative); Urine Bilirubin Dipstick Negative (Negative); Urine Clarity Clear (Clear); Urine Urobilinogen Normal (Normal); Urine pH 6.5 (5.0 - 8.0)
[2020-01-22 09:19] LABS: Ketone-Dipstick 150 mg/dl (Negative)
[2020-01-22 09:25] LABS: White Blood Cells 0-5 SEEN /hpf (0-5)
--- NOTE | 2020-01-22 10:35 | NURSING ---
Addendum entered by Mavis Henderson 01/22/20 13:50: Marilee returned phone call and was able to provide update. assisted pt to use room phone to speak with Marilee. Original Note: attempted to return phone call to Marilee, pt caregiver, no answer. will try to call again.
--- NOTE | 2020-01-22 13:26 | CASEMGMT ---
RN CM Assessment Note Presentation: Sigmoid Volvulus Intro role of CM and purpose of RN CM assessment to patient's early breastfeeding care specialist Marilee via phone. Marilee states she is DPOA-no papers on file. Requested if papers are found, would be beneficial to have on file @ hospital. Demographics, PCP and Pharmacy verified. Pt with mild MRDD. Caregiver states pt receives some financial assistance through B-MRDD. Caregiver provides all assisstance at home for pt. PCP: Dr. Bosch Specialists: none Preferred Pharmacy: [facility] Insurance: [facility] Prescription Benefit: yes LNOK : Caregiver Marilee Dundy is Contact Living Arrangements: Lives in mobile home with caregiver. States pt is ambulatory, needs assistance with showering, dressing, meals, shopping. Pt does not use ambulatory DME. Transportation: Caregiver drives DME: none HHC: none SNF: was in SNF a few years ago, does not know which one. Patient DC goals: Home per Caregiver DC PLAN: Anticipate Home on discharge. RN CM advised caregiver to contact cm for any concerns/needs that may arise. Miguel MOFFETT BSN CM
[2020-01-22] MEDS: Ensure Clear 120 ML Liquid PO ×3 (13:46→21:11)
[2020-01-22] MEDS: Potassium Chloride 40 MEQ in 0.45% Normal Saline 1,000 ML 100 MEQ IV (14:00)
[2020-01-22 18:15] LABS: Anion Gap 6 (5-15); BUN 5 mg/dL (7-18); BUN/Creat Ratio 7.9 RATIO (10-20); Calcium,Total 7.7 mg/dL (8.5-10.1); Chloride 109 mmol/L (98-107); Creatinine, Serum 0.63 mg/dL (0.55-1.02); EST Glomerular Filtration Rate 100 mL/min (>60); Est Glom Filt Rate - Afr Amer 121 mL/min (>60); Estimated Creatinine Clearance 41.76 ml/min; Glucose 102 mg/dL (74-106); Potassium 2.7 mmol/L (3.5-5.1); Sodium Level 140 mmol/L (136-145)
[2020-01-22] MEDS: 0.45% Normal Saline 1,000 ML 100 ML IV (19:00)
[2020-01-23] VITALS (15 sets, daily range): BP systolic 103–124; BP diastolic 52–78; PULSE 56–74; RESP 16–18; TEMP 36.4–37.1; O2SAT 93–96
[2020-01-23] MEDS: Potassium Chloride 10mEq/100mL 10 MEQ/100 ML IV.SOLN. 100 MEQ IV BOLUS ×10 (00:55→23:13)
--- NOTE | 2020-01-23 05:55 | RAD_ITS ---
STUDY: X-RAY - ABDOMEN/PELVIS REASON FOR EXAM: Female, 64 years old. ABD DISTENTION -- HX OF SIGMOID VOLVULUS TECHNIQUE: Single AP view of the abdomen / pelvis. COMPARISON: January 20 and 2019 FINDINGS: There is distention of bowel appears increased, there is in addition wall thickening. Normal soft tissue structures. There are diffuse degenerative changes of the visualized lumbar spine. Total left hip arthroplasty. RAD/Abdomen Single View (Portable) IMPRESSION: Progression of air distention with bowel wall thickening in the lower abdomen and pelvis. Electronically Signed: Charity Singh MD at 5:36 EDT , Service support ,
[2020-01-23] MEDS: Menthol/Lanolin/Calamine/Znox 113 GM Tube 1 APPLIC TOPICAL ×3 (06:01→21:19)
[2020-01-23 06:33] LABS: Absolute Lymphocyte Count 2.76 X10^3/uL (0.83-4.51); Absolute Neutrophil Count 5.2 X10^3/uL (2.0-7.7); Basophil# 0.02 X10^3/uL; Basophil% 0.2 % (0-1); Eosinophil# 0.14 X10^3/uL; Eosinophils% 1.6 % (0-5); Hemoglobin 11.8 g/dL (12.0-15.0); Lymphocyte # 2.76 X10^3/ul (4.0); Lymphocyte % 30.8 % (19-41); Mean Corp Hgb Conc 33.7 g/dL (32-36); Mean Corpuscular Hgb 29.5 pg (27.0-32.0); Mean Corpuscular Volume 87.5 fL (81-99); Mean Platelet Vol. 9.8 fl (6.2-12.0); Monocyte% 8.9 % (0-10); NRBC Flagged by Analyzer 0 % (0-5); Neutrophil # 5.19 X10^3/uL (2.7-7.7); Neutrophil % 57.9 % (47-70); Platelet Count 250 K/mm3 (150-450); RBC Distribution Width CV 13.6 % (11.6-14.6)
[2020-01-23 06:55] LABS: Anion Gap 6 (5-15); BUN 4 mg/dL (7-18); BUN/Creat Ratio 7.8 RATIO (10-20); Calcium,Total 7.6 mg/dL (8.5-10.1); Chloride 112 mmol/L (98-107); Creatinine, Serum 0.51 mg/dL (0.55-1.02); EST Glomerular Filtration Rate 128 mL/min (>60); Est Glom Filt Rate - Afr Amer 155 mL/min (>60); Estimated Creatinine Clearance 41.76 ml/min; Glucose 80 mg/dL (74-106); Potassium 2.9 mmol/L (3.5-5.1); Sodium Level 142 mmol/L (136-145)
[2020-01-23] MEDS: 0.45% Normal Saline 1,000 ML 100 ML IV ×2 (08:45→20:03)
--- NOTE | 2020-01-23 08:50 | PN.SURG_ITS ---
Subjective: Patient's KUB does show more abdominal distention--plan for repeat decompressive sigmoidoscopy with rectal tube, hypokalemia 2.9 after replacing but 160 mEq yesterday - Physical Exam Vitals/I&O's: Vital Signs Temp Pulse Resp BP Pulse Ox 98.4 F 74 18 120/61 96 01/23/20 08:48 01/23/20 08:48 01/23/20 08:48 01/23/20 08:48 01/23/20 08:48 Oxygen Delivery Method Room Air Weight: 157 lb 10.088 oz Body Mass Index (BMI) 29.7 Intake and Output for Last 24 Hours 01/21/20 01/22/20 01/23/20 23:59 23:59 23:59 Intake Total 2943.75 / 2943.75 5275 / 5395 1785 / 1785 Output Total 1999 2550 / 2850 1750 / 1750 Balance 943.75 / 943.75 2725 / 2545 35 / 35 General: Alert, Oriented x3, Cooperative, No apparent distress HEENT: Atraumatic Lungs: Normal air movement Cardiovascular: Regular rate Abdomen: Soft, Non Tender, Distended - Mild to moderate Extremities: No clubbing, No cyanosis, No edema Skin: Excoriated - Under the left breast treated with nystatin as well as from the skin with cloth Laboratory Results 01/22/20 08:30: Urine Color Yellow, Urine Clarity Clear, Urine pH 6.5, Ur Specific [place] 1.010, Urine Protein Negative, Urine Glucose (UA) Normal, Urine Ketones 150 H, Urine Occult Blood Negative, Urine Nitrite Negative, Urine Bilirubin Negative, Urine Urobilinogen Normal, Ur Leukocyte Esterase 25 H, Urine RBC 0 SEEN, Urine WBC 0-5 SEEN, Ur Squamous Epith Cells 0 SEEN, Urine Bacteria 0 SEEN, Urine Mucus 0 SEEN 01/22/20 08:30: Ur Random Sodium 144, Urine Potassium 5.0, Urine Chloride 146 01/22/20 17:22: Sodium 140, Potassium 2.7 L*, Chloride 109 H, Carbon Dioxide 25.0, Anion Gap 6, BUN 5 L, Creatinine 0.63, Estim Creat Clear Calc 41.76, Est GFR (MDRD) Af Amer 121, Est GFR (MDRD) Non-Af 100, BUN/Creatinine Ratio 7.9 L, Glucose 102, Calcium 7.7 L 01/23/20 06:12: WBC 9.0, RBC 4.00 L, Hgb 11.8 L, Hct 35.0 L, MCV 87.5, MCH 29.5, MCHC 33.7, RDW Std Deviation 44.0 H, RDW Coeff of Jose 13.6, Plt Count 250, MPV 9.8, Immature Gran % (Auto) 0.600, Neut % (Auto) 57.9, Lymph % (Auto) 30.8, [place] % (Auto) 8.9, Eos % (Auto) 1.6, Baso % (Auto) 0.2, Absolute Neuts (auto) 5.2, Absolute Lymphs (auto) 2.76, Nucleated RBC % 0 01/23/20 06:12: Sodium 142, Potassium 2.9 L, Chloride 112 H, Carbon Dioxide 24.0, Anion Gap 6, BUN 4 L, Creatinine 0.51 L, Estim Creat Clear Calc 41.76, Est GFR (MDRD) Af Amer 155, Est GFR (MDRD) Non-Af 128, BUN/Creatinine Ratio 7.8 L, Glucose 80, Calcium 7.6 L Current Medications Acetaminophen (Tylenol) 650 mg PO Q6H PRN PRN PRN Reason: Pain Score 1-10/10 Calamine/Phenol (Calmoseptine Ointment) 1 applic TOPICAL TID [facility]; Protocol Last Admin: 01/23/20 06:01 Dose: 1 appful Documented by: Enoxaparin Sodium (Lovenox) 40 mg SC DAILY [facility] Last Admin: 01/21/20 14:50 Dose: 40 mg Documented by: Gabapentin (Neurontin) 300 mg PO BIDCM [facility] Last Admin: 01/22/20 17:05 Dose: 300 mg Documented by: Pantoprazole Sodium 40 mg/ (Sodium Chloride) 110 mls @ 330 mls/hr IV Q24 [facility] Last Infusion: 01/22/20 10:18 Dose: Infused Documented by: Sodium Chloride () 250 mls @ 15 mls/hr IV .[id number] PRN PRN Reason: Saline Flush Last Admin: 01/22/20 18:43 Dose: 15 mls/hr Documented by: Sodium Chloride () 250 mls @ 15 mls/hr IV .[id number] PRN PRN Reason: Additional IVPB Infusion Potassium Chloride 40 meq/ (Sodium Chloride) 1,020 mls @ 100 mls/hr IV .[id number] [facility] Last Infusion: 01/23/20 08:46 Dose: Infused Documented by: Sodium Chloride () 1,000 mls @ 100 mls/hr IV .Q10H [facility] Last Admin: 01/23/20 08:45 Dose: 100 mls/hr Documented by: Potassium Chloride () 10 meq in 100 mls @ 100 mls/hr IV BOLUS Q1H [facility] Stop: 01/23/20 12:29 Nutritional Formula (Lactose Free) (Ensure Clear) 120 ml PO 4X/DAY [facility] Last Admin: 01/22/20 21:11 Dose: 120 ml Documented by: Nystatin (Mycostatin Powder) 1 applic TOPICAL BID [facility]; Protocol Last Admin: 01/22/20 21:12 Dose: 1 applicatio Documented by: Ondansetron HCl (Zofran) 4 mg IV Q8H PRN PRN PRN Reason: NAUSEA Oxcarbazepine (Trileptal) 300 mg PO DAILY [facility] Last Admin: 01/22/20 08:52 Dose: 300 mg Documented by: Sodium Chloride () 10 - 40 ml IV UD PRN PRN Reason: SALINE FLUSH Medical Necessity - Tobacco Use Smoking Status: Never smoker Assessment/Plan 64-year-old female with a sigmoid volvulus that is post decompressive sigmoidoscopy, and placement of rectal tube, hypokalemia 1. KUB shows some dilated bowel plan for repeat decompressive sigmoidoscopy as patient still has regular hypokalemia at 2.9 after replacing with 160 mEq yesterday, will place PICC line. Discussed the procedure as well as risk with the patient as well as her POA Marilee. Also discussed the plan for surgery likely either tomorrow or as this is already re-volvulized once, will attempt to get her potassium better repleted in the meantime. 2. Patient does have some excoriation under left breast, new nystatin and wound care 3. Hypokalemia patient was 2.9 this morning we will give another 40 IV plan for PICC line. 4. lovenox/protonix 5. Urinary retention patient does have a Arguello catheter in place as she did have retention of 600 & 800 previously. Nati Manning M.D. Pager: [phone] [facility] [address] [place] [address], [address] [place] [address] Office: [phone]
--- NOTE | 2020-01-23 10:18 | RAD_ITS ---
STUDY: X-RAY - ABDOMEN/PELVIS REASON FOR EXAM: Female, 64 years old. S/P RECTAL TUBE PLACEMENT. TECHNIQUE: Single AP view of the abdomen / pelvis. COMPARISON: Comparison is made with prior examination dated January 23, 2020 at 4:50 AM. FINDINGS: A rectal tube is seen with the tip in the region of the sigmoid colon. At this time, there is evidence of less gaseous distention of the distal colon and small bowel loops. The visualized liver, spleen and kidneys are grossly normal in size and morphology. Normal soft tissue structures. There are diffuse degenerative changes of the visualized lumbar spine. The patient is status post left hip replacement. RAD/Abdomen Single View (Portable) IMPRESSION: Interval placement of a rectal tube with the improvement in gaseous distention of the distal colon as well as small bowel. Electronically Signed: Billy Cagle, at 13:00 EDT , Service support ,
[2020-01-23] MEDS: Gabapentin 300 MG Capsule PO ×2 (10:52→18:00)
[2020-01-23] MEDS: OXcarbazepine 300 MG Tablet PO (10:53)
[2020-01-23] MEDS: Enoxaparin 40 MG/0.4 ML Syringe SC (10:53)
[2020-01-23] MEDS: Nystatin Powder 15gm Bottle 1 APPLIC TOPICAL ×2 (10:53→21:19)
[2020-01-23] MEDS: Ensure Clear 120 ML Liquid PO ×3 (14:38→21:17)
[2020-01-23] MEDS: Magnesium Sulfate 1 GM in 0.9% Normal Saline 100 ML IV (17:53)
[2020-01-23] MEDS: Potassium Chloride 40 MEQ in 0.45% Normal Saline 1,000 ML 100 MEQ IV (17:53)
[2020-01-23] MEDS: 0.9% Saline Lock 10 ML Syringe IV (17:54)
[2020-01-24] VITALS (16 sets, daily range): BP systolic 97–127; BP diastolic 34–79; PULSE 59–107; RESP 14–18; TEMP 36.1–37.1; O2SAT 93–100; BMI 29.6; BMI 29.8
[2020-01-24] MEDS: Potassium Chloride 10mEq/100mL 10 MEQ/100 ML IV.SOLN. 100 MEQ IV BOLUS ×2 (00:18→01:19)
[2020-01-24] MEDS: 0.9% Saline Lock 10 ML Syringe IV (02:33)
[2020-01-24 05:18] LABS: Anion Gap 6 (5-15); BUN 2 mg/dL (7-18); BUN/Creat Ratio 4.5 RATIO (10-20); Calcium,Total 7.2 mg/dL (8.5-10.1); Chloride 110 mmol/L (98-107); Creatinine, Serum 0.44 mg/dL (0.55-1.02); EST Glomerular Filtration Rate 152 mL/min (>60); Est Glom Filt Rate - Afr Amer 183 mL/min (>60); Estimated Creatinine Clearance 41.76 ml/min; Glucose 89 mg/dL (74-106); Potassium 3.1 mmol/L (3.5-5.1); Sodium Level 140 mmol/L (136-145)
[2020-01-24] MEDS: Menthol/Lanolin/Calamine/Znox 113 GM Tube 1 APPLIC TOPICAL ×3 (05:36→21:00)
--- NOTE | 2020-01-24 05:55 | EKG12_ITS ---
Test Reason : PRE-OP Blood Pressure : / mmHG Vent. Rate : 063 BPM Atrial Rate : 063 BPM P-R Int : 136 ms QRS Dur : 082 ms QT Int : 434 ms P-R-T Axes : 050 024 029 degrees QTc Int : 444 ms Normal sinus rhythm Normal ECG When compared with ECG of 20-JAN-2020 22:45, Fusion complexes are no longer Present T wave inversion no longer evident in Inferior leads Nonspecific T wave abnormality has replaced inverted T waves in Anterior leads Confirmed by ANA LUIS ([id number]), development editor CELINE ANTHONY ([id number]) on 02/02/2020 10:36:04 AM Referred By: ANTONI Confirmed By:ANA LUIS
--- NOTE | 2020-01-24 06:49 | PCM.PN.SRG ---
Subjective: Patient denies abdominal pain abdomen is decompressed - Physical Exam Vitals/I&O's: Vital Signs Temp Pulse Resp BP Pulse Ox 98.8 F 68 16 114/67 95 01/24/20 05:57 01/24/20 05:57 01/24/20 05:57 01/24/20 05:57 01/24/20 05:57 Oxygen Delivery Method Room Air Weight: 157 lb Body Mass Index (BMI) 29.6 Intake and Output for Last 24 Hours 01/22/20 01/23/20 01/24/20 23:59 23:59 23:59 Intake Total 5275 / 5395 4865.33 / 4865.33 936.67 / 936.67 Output Total 2550 / 2850 5000 / 5000 950 / 950 Balance 2725 / 2545 -134.67 / -134.67 -13.33 / -13.33 General: Alert, Oriented x3, Cooperative, No apparent distress HEENT: Atraumatic Lungs: Normal air movement Cardiovascular: Regular rate Abdomen: Soft, Non Tender, Non-Distended Extremities: No clubbing, No cyanosis, No edema Psych/Mental Status: Flat Affect Laboratory Results 01/23/20 06:12: Sodium 142, Potassium 2.9 L, Chloride 112 H, Carbon Dioxide 24.0, Anion Gap 6, BUN 4 L, Creatinine 0.51 L, Estim Creat Clear Calc 41.76, Est GFR (MDRD) Af Amer 155, Est GFR (MDRD) Non-Af 128, BUN/Creatinine Ratio 7.8 L, Glucose 80, Calcium 7.6 L 01/23/20 17:40: Potassium 3.0 L 01/24/20 04:52: Sodium 140, Potassium 3.1 L, Chloride 110 H, Carbon Dioxide 24.0, Anion Gap 6, BUN 2 L, Creatinine 0.44 L, Estim Creat Clear Calc 41.76, Est GFR (MDRD) Af Amer 183, Est GFR (MDRD) Non-Af 152, BUN/Creatinine Ratio 4.5 L, Glucose 89, Calcium 7.2 L 01/24/20 04:52: Blood Type O POSITIVE, Antibody Screen NEGATIVE Current Medications Acetaminophen (Tylenol) 650 mg PO Q6H PRN PRN PRN Reason: Pain Score 1-10/10 Calamine/Phenol (Calmoseptine Ointment) 1 applic TOPICAL TID [facility]; Protocol Last Admin: 01/24/20 05:36 Dose: 1 appful Documented by: Enoxaparin Sodium (Lovenox) 40 mg SC DAILY [facility] Last Admin: 01/23/20 10:53 Dose: 40 mg Documented by: Gabapentin (Neurontin) 300 mg PO BIDCM [facility] Last Admin: 01/23/20 18:00 Dose: 300 mg Documented by: Pantoprazole Sodium 40 mg/ (Sodium Chloride) 110 mls @ 330 mls/hr IV Q24 [facility] Last Infusion: 01/23/20 12:05 Dose: Infused Documented by: Sodium Chloride () 250 mls @ 15 mls/hr IV .[id number] PRN PRN Reason: Saline Flush Last Infusion: 01/23/20 22:15 Dose: 0 mls/hr Documented by: Sodium Chloride () 250 mls @ 15 mls/hr IV .[id number] PRN PRN Reason: Additional IVPB Infusion Potassium Chloride 40 meq/ (Sodium Chloride) 1,020 mls @ 100 mls/hr IV .[id number] [facility] Last Infusion: 01/24/20 02:25 Dose: 100 mls/hr Documented by: Sodium Chloride () 1,000 mls @ 100 mls/hr IV .Q10H [facility] Last Infusion: 01/24/20 02:25 Dose: 0 mls/hr Documented by: Cefotetan Disodium 2 gm/ (Sodium Chloride) 100 mls @ 200 mls/hr IV PREOP ONE Stop: 01/24/20 07:29 Nutritional Formula (Lactose Free) (Ensure Clear) 120 ml PO 4X/DAY [facility] Last Admin: 01/23/20 21:17 Dose: 120 ml Documented by: Nystatin (Mycostatin Powder) 1 applic TOPICAL BID [facility]; Protocol Last Admin: 01/23/20 21:19 Dose: 1 applicatio Documented by: Ondansetron HCl (Zofran) 4 mg IV Q8H PRN PRN PRN Reason: NAUSEA Oxcarbazepine (Trileptal) 300 mg PO DAILY [facility] Last Admin: 01/23/20 10:53 Dose: 300 mg Documented by: Sodium Chloride () 10 - 40 ml IV UD PRN PRN Reason: SALINE FLUSH Last Admin: 01/24/20 02:33 Dose: 10 ml Documented by: Medical Necessity - Tobacco Use Smoking Status: Never smoker Assessment/Plan 64-year-old female with a sigmoid volvulus that is post decompressive sigmoidoscopy, and placement of rectal tube, hypokalemia 1. Plan for laparoscopic sigmoidectomy possible open today due to recurrent sigmoid volvulus. Did discuss this with patient as well as her POA Marilee including risks including but not limited to bleeding, infection, injury to another organ (small bowel/colon/ureter), hernia, etc. patient and her POA had no further questions this time. 2. Patient does have some excoriation under left breast due to a yeast infection, new nystatin and wound care 3. Hypokalemia patient was 3.1 this morning we will give another 40 IV plan for PICC line. 4. lovenox/protonix 5. Urinary retention patient does have a Arguello catheter in place for retention and I's and O's. Nati Manning M.D. Pager: [phone] [facility] [address] [place] [address], [facility], [address] [place] [address] Office: [phone] ax: [phone] Essential Procedure Criteria Procedure Essential: Yes Criteria Note: On 12/19/2019 the [place] Department of Health ([facility]) Public Order signed by [facility] Director Bria Duff M.D., regarding the Management of Non-Essential Surgeries and Procedures for the purpose of preserving Personal Protective Equipment (PPE) and critical hospital capacity and resources within [place] went into effect as of 12/20/2019 at 5:00PM. According to the [facility] Public Order: This action will remain in full force and effect until the State of Emergency declared by the Governor no longer exists or the Director of the [facility] rescinds or modifies this Order.. This [facility] order stated all non-essential or elective surgeries and procedures that utilize PPE should be delayed unless there is undue risk to the current or future health of a patient. After reviewing the aforementioned [facility] Public Order and the patients clinical case, I have determined that the scheduled procedure meets the criteria to go forward. Risk to Patient if Procedure Delayed: Risk of rapidly worsening to severe symptoms
[2020-01-24] MEDS: Lactated Ringers 1,000 ML 100 ML IV ×2 (07:00→09:45)
[2020-01-24] MEDS: Lubricating Jelly 60 GM Tube 30 GM TOPICAL (08:25)
[2020-01-24] MEDS: Bupiv/Epi 0.25% 30 ML Vial (10:25)
--- NOTE | 2020-01-24 10:26 | PCM.OPRPT ---
Report of Operation Date of Procedure: 01/24/20 Pre-Operative Diagnosis: Recurrent sigmoid volvulus Post-Operative Diagnosis: Same Surgery/Procedure Performed:: Laparoscopic sigmoidectomy principal cloud architect: Jessica Narayan Type of Anesthesia:: General/Supplemental Anesthesiologist: Mariusz Malloy Special Medications: Cefotetan 2 g IV x1 Specimen's removed: Sigmoid colon-- staple line diaz distal Estimated Blood Loss (mL): 20 cc Fluids Replaced: 1400 cc Description of Procedure: Indications this is a 64-year-old female who initially presented with a sigmoid volvulus which was decompressed with the rectal tube, upon removal of the rectal tube patient again had a distended colon, repeat decompression was done and surgery was planned for a laparoscopic sigmoidectomy. Description procedure: The patient was placed on operating table in low lithotomy position. General Anesthesia was induced. A timeout was completed verifying correct patient, procedure, site, position, social, and special equipment prior to beginning procedure. An orogastric tube was placed. The rectum was irrigated with Betadine solution. The abdomen was prepped and draped in usual sterile fashion. An incision was made in the natural skin line above the umbilicus. The fascia was elevated and incised. The peritoneum was elevated and incised. Entry into the peritoneum was confirmed visually and no bowel was noted in the vicinity of the incision. Fernandez trocar was placed. The abdomen was insufflated with carbon dioxide to a pressure of 12-15 mmHg. Patient tolerated insufflation well. The laparoscope was then inserted and abdomen inspected. No injuries from initial trocar placement were noted. Additional trochars were then inserted in the following locations 5 mm trocar in the right mid quadrant 12 mm in the right lower quadrant. The table was placed in reverse Trendelenburg position with the left side up. The sigmoid junction was identified in the hole was made in the mesial rectum in order to place the [place] 60 standard blue load across the rectum. This did require 2 loads. Using the Enseal of the mesentery of the redundant sigmoid colon was divided. Once adequate sigmoid was divided the remaining sigmoid reached easily to the rectal stump without tension. Abdomen was allowed to collapse using the smoke evacuator filter. Lower midline 6 cm incision using a 10 blade and deepened to the fascia with electrocautery. Hemostats were used to elevate the fascia incised with 15 blade scalpel. Rectus muscles and the peritoneum was grasped again with hemostats and abdomen was entered using Metzenbaums. Small wound protector was placed. The sigmoid colon was delivered into the wound. Area of distal descending colon was transected using bowel clamps and Sherwood scissors. There is noted to be good blood flow at the distal colon. The anvil was attached using a pursestring to the distal descending colon. This was placed back in the abdomen and abdomen reinsufflated to 12 to 15 mmHg. The colon was sized and the [employer] surgery 33 mm circular stapler was advanced to the rectal stump. Once the circular stapler was then placed the anvil was attached, assured the mesentery was not twisted and there was no tension to the anastomosis. The circular stapler was fired both proximal and distal donuts were. There was good hemostasis. The pelvis was filled with irrigation solution and a leak test was performed which did not show any evidence of a leak. Again the abdomen was allowed to collapse using the smoke evacuator filter. The trochars removed under direct visualization. Once the wound protector was removed, gloves were changed. The supraumbilical incision and the 12 mm trocar site was closed with 0 Vicryl sutures. The lower midline incision was closed with 1-0 PDS suture. The skin was closed with 4-0 Monocryl interrupted sutures. Dry sterile dressings were applied. The sponge and instrument count were correct. The patient was extubated. The patient tolerated procedure well and was taken to the postanesthesia care unit in stable condition. - Complications None
[2020-01-24] MEDS: Nystatin Powder 15gm Bottle 1 APPLIC TOPICAL ×2 (12:43→21:00)
[2020-01-24] MEDS: Ensure Clear 120 ML Liquid PO (17:11)
[2020-01-24] MEDS: Gabapentin 300 MG Capsule PO (17:11)
[2020-01-24 18:16] LABS: Potassium 5.4 mmol/L (3.5-5.1)
[2020-01-24] MEDS: 0.45% Normal Saline 1,000 ML 100 ML IV (18:59)
[2020-01-25] VITALS (10 sets, daily range): BP systolic 111–138; BP diastolic 55–75; PULSE 74–97; RESP 16–18; TEMP 36.3–37.1; O2SAT 92–96; BMI 29.8
[2020-01-25] MEDS: Menthol/Lanolin/Calamine/Znox 113 GM Tube 1 APPLIC TOPICAL ×3 (05:57→22:07)
[2020-01-25] MEDS: 0.45% Normal Saline 1,000 ML 60 ML IV (05:57)
[2020-01-25 06:31] LABS: Anion Gap 5 (5-15); BUN 3 mg/dL (7-18); BUN/Creat Ratio 4.9 RATIO (10-20); Calcium,Total 7.4 mg/dL (8.5-10.1); Chloride 107 mmol/L (98-107); Creatinine, Serum 0.61 mg/dL (0.55-1.02); EST Glomerular Filtration Rate 103 mL/min (>60); Est Glom Filt Rate - Afr Amer 125 mL/min (>60); Estimated Creatinine Clearance 41.76 ml/min; Glucose 96 mg/dL (74-106); Potassium 3.3 mmol/L (3.5-5.1); Sodium Level 138 mmol/L (136-145)
[2020-01-25] MEDS: Enoxaparin 40 MG/0.4 ML Syringe SC (09:24)
[2020-01-25] MEDS: Gabapentin 300 MG Capsule PO ×2 (09:24→17:02)
[2020-01-25] MEDS: Ensure Clear 120 ML Liquid PO ×4 (09:24→22:06)
[2020-01-25] MEDS: OXcarbazepine 300 MG Tablet PO (09:24)
[2020-01-25] MEDS: Nystatin Powder 15gm Bottle 1 APPLIC TOPICAL ×2 (09:25→22:06)
--- NOTE | 2020-01-25 10:34 | CASEMGMT ---
Physician had mentioned [facility] for patient. OT saw her today and she was hand held assist and went 100'. SW spoke with patient's caregiver and went over OT note with her. She said they live in a double wide and patient does not have to walk far normally and she felt patient would be fine for home. SW told her we will see how she does with PT, SW will check with patient and her guardian. SW met with patient, introduced self and role at [facility]. SW spoke with patient about how she feels about going home and she said she will be fine at home. SW told her we will see how she does with PT today and SW can check with her guardian. Berta SNOW MSW
--- NOTE | 2020-01-25 11:27 | PN.SURG_ITS ---
Subjective: denies abd pain, admits to left breast soreness, denies flatus or nausea - Physical Exam Vitals/I&O's: Vital Signs Temp Pulse Resp BP Pulse Ox 98 F 89 18 113/62 92 01/25/20 09:14 01/25/20 09:14 01/25/20 09:14 01/25/20 09:14 01/25/20 09:14 Oxygen Delivery Method Room Air Weight: 157 lb Body Mass Index (BMI) 29.6 Intake and Output for Last 24 Hours 01/23/20 01/24/20 01/25/20 23:59 23:59 23:59 Intake Total 4865.33 / 4865.33 4346.67 / 4346.67 772 / 772 Output Total 5000 / 5000 3600 / 3850 400 / 400 Balance -134.67 / -134.67 746.67 / 496.67 372 / 372 General: Alert, Cooperative, No apparent distress Lungs: Normal air movement Cardiovascular: Regular rate Abdomen: Soft, Non-Distended, Tender - Minimally tender to palpation near incisions clean dry and intact with op sites, no peritoneal signs Extremities: No clubbing, No cyanosis, No edema Skin: - - Excoriation under the left breast being treated with nystatin, separation of the breast and abdomen by pillowcase/ABD Psych/Mental Status: Appropriate Laboratory Results 01/24/20 17:38: Potassium 5.4 H 01/25/20 05:42: Sodium 138, Potassium 3.3 L, Chloride 107, Carbon Dioxide 26.0, Anion Gap 5, BUN 3 L, Creatinine 0.61, Estim Creat Clear Calc 41.76, Est GFR (MDRD) Af Amer 125, Est GFR (MDRD) Non-Af 103, BUN/Creatinine Ratio 4.9 L, Glucose 96, Calcium 7.4 L Current Medications Acetaminophen (Tylenol) 650 mg PO Q6H PRN PRN PRN Reason: Pain Score 1-10/10 Calamine/Phenol (Calmoseptine Ointment) 1 applic TOPICAL TID [facility]; Protocol Last Admin: 01/25/20 05:57 Dose: 1 applicatio Documented by: Enoxaparin Sodium (Lovenox) 40 mg SC DAILY [facility] Last Admin: 01/25/20 09:24 Dose: 40 mg Documented by: Gabapentin (Neurontin) 300 mg PO BIDCM [facility] Last Admin: 01/25/20 09:24 Dose: 300 mg Documented by: Pantoprazole Sodium 40 mg/ (Sodium Chloride) 110 mls @ 330 mls/hr IV Q24 [facility] Last Infusion: 01/25/20 09:45 Dose: Infused Documented by: Sodium Chloride () 250 mls @ 15 mls/hr IV .[id number] PRN PRN Reason: Saline Flush Last Infusion: 01/23/20 22:15 Dose: 0 mls/hr Documented by: Sodium Chloride () 250 mls @ 15 mls/hr IV .[id number] PRN PRN Reason: Additional IVPB Infusion Sodium Chloride () 1,000 mls @ 60 mls/hr IV .[id number] [facility] Last Admin: 01/25/20 05:57 Dose: 60 mls/hr Documented by: Nutritional Formula (Lactose Free) (Ensure Clear) 120 ml PO 4X/DAY [facility] Last Admin: 01/25/20 09:24 Dose: 120 ml Documented by: Nystatin (Mycostatin Powder) 1 applic TOPICAL BID [facility]; Protocol Last Admin: 01/25/20 09:25 Dose: 1 applicatio Documented by: Ondansetron HCl (Zofran) 4 mg IV Q8H PRN PRN PRN Reason: NAUSEA Oxcarbazepine (Trileptal) 300 mg PO DAILY [facility] Last Admin: 01/25/20 09:24 Dose: 300 mg Documented by: Sodium Chloride () 10 - 40 ml IV UD PRN PRN Reason: SALINE FLUSH Last Admin: 01/24/20 02:33 Dose: 10 ml Documented by: Medical Necessity - Tobacco Use Smoking Status: Never smoker Assessment/Plan 64-year-old female with a sigmoid volvulus that is post decompressive sigmoidoscopy, status post laparoscopic sigmoidectomy postop day 1, hypokalemia 1. Patient denies any nausea or flatus will start patient on clears as she also denies any abdominal pain. 2. Patient does have some excoriation under left breast due to a yeast infection, continue nystatin and wound care 3. Hypokalemia patient was 3.3 this morning we will give another 40 IV plan for PICC line. And continue to monitor and replace 4. lovenox/protonix 5. Urinary retention patient does have a Arguello catheter in place for retention and I's and O's. Nati Manning M.D. Pager: [phone] [facility] [address] [place] [address], [address] [place] [id number] Office: [phone] ax: [phone]
--- NOTE | 2020-01-25 12:19 | CASEMGMT ---
FLY spoke with PT and she feels patient will be fine going home. FLY and BETINA BUSH will continue to follow. Berta SNOW MSW
--- NOTE | 2020-01-25 13:50 | NURSING ---
Arguello catheter removed at this time per order of Dr. Manning.
--- NOTE | 2020-01-25 16:59 | NURSING ---
Spoke with patient caregiver, Marilee, over the phone. Updated on patient status. Marilee would like it noted that she believes she is capable of any therapy patient needs at home and does not want patient going to another floor/facility for rehab.
--- NOTE | 2020-01-25 20:45 | NURSING ---
Bladder scanned patient after voiding and only 80 left in bladder. No need for rodríguez catheter insertion at this time.
[2020-01-26] VITALS (8 sets, daily range): BP systolic 107–115; BP diastolic 47–64; PULSE 75–89; RESP 16–18; TEMP 36.8–37.4; O2SAT 92–94
--- NOTE | 2020-01-26 03:45 | NURSING ---
Bladder scanned patient for 350cc, patient got up to void this morning and voided about 300 cc. Post void amount 55 cc.
[2020-01-26] MEDS: Menthol/Lanolin/Calamine/Znox 113 GM Tube 1 APPLIC TOPICAL ×3 (05:08→21:14)
[2020-01-26 07:11] LABS: Anion Gap 8 (5-15); BUN 2 mg/dL (7-18); BUN/Creat Ratio 3.5 RATIO (10-20); Calcium,Total 7.7 mg/dL (8.5-10.1); Chloride 109 mmol/L (98-107); Creatinine, Serum 0.58 mg/dL (0.55-1.02); EST Glomerular Filtration Rate 111 mL/min (>60); Est Glom Filt Rate - Afr Amer 135 mL/min (>60); Estimated Creatinine Clearance 41.76 ml/min; Glucose 100 mg/dL (74-106); Potassium 2.9 mmol/L (3.5-5.1); Sodium Level 142 mmol/L (136-145)
[2020-01-26] MEDS: Gabapentin 300 MG Capsule PO ×2 (08:26→16:23)
--- NOTE | 2020-01-26 08:49 | PCM.PN.SRG ---
Subjective: Patient denies abdominal pain, had diarrhea and flatus, tolerated clears, K is 2.9 - Physical Exam Vitals/I&O's: Vital Signs Temp Pulse Resp BP Pulse Ox 98.5 F 75 18 109/60 92 01/26/20 03:45 01/26/20 07:45 01/26/20 03:45 01/26/20 03:45 01/26/20 03:45 Oxygen Delivery Method Room Air Weight: 157 lb Body Mass Index (BMI) 29.6 Intake and Output for Last 24 Hours 01/24/20 01/25/20 01/26/20 23:59 23:59 23:59 Intake Total 4346.67 / 4346.67 3192 / 3192 Output Total 3600 / 3850 600 / 600 300 / 300 Balance 746.67 / 496.67 2592 / 2592 -300 / -300 General: Alert, Oriented x3, Cooperative, No apparent distress Lungs: Normal air movement Cardiovascular: Regular rate Abdomen: Soft, Non Tender, Non-Distended, Tender - Incisions clean dry and intact with op sites Extremities: No clubbing, No cyanosis, No edema Skin: - - Left breast yeast infection improving Laboratory Results 01/25/20 14:35: Potassium 4.0 01/26/20 05:49: Sodium 142, Potassium 2.9 L, Chloride 109 H, Carbon Dioxide 25.0, Anion Gap 8, BUN 2 L, Creatinine 0.58, Estim Creat Clear Calc 41.76, Est GFR (MDRD) Af Amer 135, Est GFR (MDRD) Non-Af 111, BUN/Creatinine Ratio 3.5 L, Glucose 100, Calcium 7.7 L Current Medications Acetaminophen (Tylenol) 650 mg PO Q6H PRN PRN PRN Reason: Pain Score 1-10/10 Calamine/Phenol (Calmoseptine Ointment) 1 applic TOPICAL TID [facility]; Protocol Last Admin: 01/26/20 05:08 Dose: 1 applicatio Documented by: Enoxaparin Sodium (Lovenox) 40 mg SC DAILY [facility] Last Admin: 01/25/20 09:24 Dose: 40 mg Documented by: Gabapentin (Neurontin) 300 mg PO BIDCM [facility] Last Admin: 01/26/20 08:26 Dose: 300 mg Documented by: Pantoprazole Sodium 40 mg/ (Sodium Chloride) 110 mls @ 330 mls/hr IV Q24 [facility] Last Infusion: 01/25/20 09:45 Dose: Infused Documented by: Sodium Chloride () 250 mls @ 15 mls/hr IV .[id number] PRN PRN Reason: Saline Flush Last Infusion: 01/23/20 22:15 Dose: 0 mls/hr Documented by: Sodium Chloride () 250 mls @ 15 mls/hr IV .[id number] PRN PRN Reason: Additional IVPB Infusion Potassium Chloride 40 meq/ (Sodium Chloride) 120 mls @ 100 mls/hr IV BOLUS X1 ONE Stop: 01/26/20 09:11 Nutritional Formula (Lactose Free) (Ensure Clear) 120 ml PO 4X/DAY [facility] Last Admin: 01/25/20 22:06 Dose: 120 ml Documented by: Nystatin (Mycostatin Powder) 1 applic TOPICAL BID [facility]; Protocol Last Admin: 01/25/20 22:06 Dose: 1 applicatio Documented by: Ondansetron HCl (Zofran) 4 mg IV Q8H PRN PRN PRN Reason: NAUSEA Oxcarbazepine (Trileptal) 300 mg PO DAILY [facility] Last Admin: 01/25/20 09:24 Dose: 300 mg Documented by: Sodium Chloride () 10 - 40 ml IV UD PRN PRN Reason: SALINE FLUSH Last Admin: 01/24/20 02:33 Dose: 10 ml Documented by: Medical Necessity - Tobacco Use Smoking Status: Never smoker Assessment/Plan 64-year-old female with a sigmoid volvulus that is post decompressive sigmoidoscopy, status post laparoscopic sigmoidectomy postop day 2, hypokalemia 1. We will change to regular diet 2. Patient does have some excoriation under left breast due to a yeast infection--improving, continue nystatin and wound care 3. Hypokalemia patient was 2.9 this morning we will give another 40 IV plan for PICC line and 40 mEq p.o. And continue to monitor and replace 4. lovenox/protonix 5. Arguello DC'd yesterday voiding well Nati Manning M.D. Pager: [phone] [facility] [address] [place] [address], [facility], [address] [place] [address] Office: [phone] ax: [phone]
[2020-01-26] MEDS: Enoxaparin 40 MG/0.4 ML Syringe SC (10:59)
[2020-01-26] MEDS: Nystatin Powder 15gm Bottle 1 APPLIC TOPICAL ×2 (10:59→21:14)
[2020-01-26] MEDS: OXcarbazepine 300 MG Tablet PO (10:59)
[2020-01-26] MEDS: Ensure Clear 120 ML Liquid PO ×4 (11:00→21:13)
--- NOTE | 2020-01-26 14:11 | PCM.DC.GS ---
Discharge Diet: - - transitional (low fiber)-cook vegetables well-avoid skins, white bread over wheat bread; try to eat high potassium foods like banana/avocados, etc Discharge Activity: May Shower May shower in (days): 0 - Okay to shower today Lifting Restrictions: After greater than 20 pounds x 3 weeks Call your doctor if your incision/area has: Continuous Slow Oozing, Sudden Increased Bleeding, Increased Pain/ Swelling, Increased Redness, Foul Smelling Discharge, Swelling at the incision site Call your doctor if you observe: Fever of 101 or Higher Remove Dressing in (days):: 0 - Okay to remove OpSite/Band-Aids today Steri-Strips will stay on for 7 to 10 days from surgery after 10 days okay to remove Additional Dressing/Incision Instructions:: Apply nystatin powder to unside of left breast BID and keep ABD pad to separate breast skin from abd skin. Monitor patient for diarrhea as there is increased potassium loss with the diarrhea; check potassium 01/29/20 at either [facility] or [facility]; schedule appt with Dr. Bosch for possible changes to potassium supplementation for next week, recommend food high in potassium (avocado, sweet potatoes, potatoes, dried apricots, bananas, etc) Allergies/Adverse Reactions: Allergies bee venom protein (honey bee) Allergy (Verified 01/20/20 22:20) Anaphylaxis Medications to take at Discharge Gabapentin [Neurontin] 300 mg PO BIDCM 01/20/20 Oxcarbazepine 5 ml PO DAILY 01/20/20 Simvastatin [Zocor] 20 mg PO QHS 01/20/20 Nystatin Powder [Mycostatin Powder] 1 applic TOPICAL BID #1 bottle 01/26/20 Potassium Chloride [K-Dur] 20 meq PO TID #30 tab 01/27/20 The following prescriptions were given: Potassium Chloride [K-Dur] 20 meq PO TID #30 tab Transmission Status: Pending to [facility] Nystatin Powder [Mycostatin Powder] 1 applic TOPICAL BID #1 bottle Orders to be completed after discharge: Basic Metabolic Profile (BMP) Time Frame: 01/29/20, Facility: [facility] [place], Location: Laboratory Primary Care Physician: Héctor Bosch Chi, MD [Primary Care Provider] - Please follow up with your Primary Care Physician in: next week after potassium lab (mon.), for possible changes to kcl supplemen Test Results: Test results from this visit will be discussed in further detail at your follow-up appointment, if applicable. Please Follow Up With: Nati Manning MD - After 5 PM and on the weekends call [phone] with any concerns When: Call the office [phone] for a follow-up appointment in 2 weeks Proposed Discharge Date: 01/26/20
--- NOTE | 2020-01-26 14:15 | DS.PCM_ITS ---
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 Differential diagnosis includes nonspecific severe obstruction from a sigmoid stenosis or stricture. Clinical correlation recommended. No evidence of free air. Electronically Signed: Yennifer Vinson MD at 0:37 EDT , Service support , ADDENDUM: 01/21/20 0052 IMPRESSION: Severe distal colonic obstruction, zone of transition at the level of the sigmoid with twisting of the vessels raising the concern of sigmoid volvulus. Differential diagnosis includes nonspecific severe obstruction from a sigmoid stenosis or stricture. Clinical correlation recommended. No evidence of free air. N.B. : The above information has been verbally conveyed by Yennifer Vinson MD to Noel Leger MD, on 01/21/2020 00:45:14 (ET). Electronically Signed: Yennifer Vinson MD at 0:37 EDT , Service support , ADDENDUM: 01/21/20 0313 KUB X-Ray 01/21/20 00:00 IMPRESSION: Diffuse colonic dilatation as described. Please see accompanying CT of the abdomen and pelvis report. Electronically Signed: Yennifer Vinson MD at 0:44 EDT , Service support , KUB X-Ray 01/21/20 02:04 IMPRESSION: Decreased distention of the colon as described above. Lines and tubes as described. Electronically Signed: Yennifer Vinson MD at 3:05 EDT , Service support , KUB X-Ray 01/21/20 09:54 IMPRESSION: Compared to previous there is reduced colonic and central bowel air consistent with reduced distention. Electronically Signed: Aj Lanza DO at 10:37 EDT , Service support , KUB X-Ray 01/22/20 05:55 IMPRESSION: Less gaseous distention of the bowel as compared to prior study. Electronically Signed: Billy Cagle, at 8:49 EDT , Service support , KUB X-Ray 01/23/20 05:55 IMPRESSION: Progression of air distention with bowel wall thickening in the lower abdomen and pelvis. Electronically Signed: Charity Singh MD at 5:36 EDT , Service support , KUB X-Ray 01/23/20 10:18 IMPRESSION: Interval placement of a rectal tube with the improvement in gaseous distention of the distal colon as well as small bowel. Electronically Signed: Billy Cagle, at 13:00 EDT , Service support , Consultations 01/21/20 10:04 Consult: Onc/Wound/civil litigation attorney Routine Comment: red with yellow slough lt breast Operations: - - On 01/23 patient went a laparoscopic sigmoid resection due to recurrent volvulus, on 01/20 & 01/22 patient underwent decompressive sigmoidoscopy with rectal tube placement Procedures: None Summary of Care Provided: The patient is a 64 year old F was admitted due to abdominal distention. CT abdomen pelvis did show a wide volvulus. Patient was taken for decompressive sigmoidoscopy and rectal tube placement. Over the next 2 days patient did decompress well was able to have rectal tube removed and was having liquid stools. Patient did have some urinary retention did require a Arguello catheter as well. On admit patient also had a yeast infection to the underside of the left breast which was treated with nystatin powder as well as separation of the breast from the abdominal skin with ABD to allow to heal. Patient did have recurrent distention and was taken for decompressive sigmoidoscopy as were trying to replenish patient's potassium which was chronically low even with aggressive replacement. On 01/23 patient underwent a laparoscopic sigmoidectomy due to recurrent sigmoid volvulus. By postop day 2 patient was tolerating clears and having bowel function. Patient advanced to a regular diet. Patient will likely be sent home on some KCl with plans to recheck the potassium as an outpatient. - Physical Exam Vitals/I&O's: Vital Signs Temp Pulse Resp BP Pulse Ox 98.2 F 83 16 111/47 L 92 01/26/20 09:45 01/26/20 09:45 01/26/20 09:45 01/26/20 09:45 01/26/20 09:45 Oxygen Delivery Method Room Air Weight: 157 lb Body Mass Index (BMI) 29.6 Intake and Output for Last 24 Hours 01/24/20 01/25/20 01/26/20 23:59 23:59 23:59 Intake Total 4346.67 / 4346.67 3192 / 3192 730 / 730 Output Total 3600 / 3850 600 / 600 300 / 300 Balance 746.67 / 496.67 2592 / 2592 430 / 430 General: Alert, Cooperative, No apparent distress Cardiovascular: Regular rate Abdomen: Soft, Non Tender, Non-Distended, - - incisions c/d/i Extremities: No clubbing, No cyanosis, No edema Psych/Mental Status: Normal Affect Laboratory Results 01/25/20 14:35: Potassium 4.0 01/26/20 05:49: Sodium 142, Potassium 2.9 L, Chloride 109 H, Carbon Dioxide 25.0, Anion Gap 8, BUN 2 L, Creatinine 0.58, Estim Creat Clear Calc 41.76, Est GFR (MDRD) Af Amer 135, Est GFR (MDRD) Non-Af 111, BUN/Creatinine Ratio 3.5 L, Glucose 100, Calcium 7.7 L Current Medications Acetaminophen (Tylenol) 650 mg PO Q6H PRN PRN PRN Reason: Pain Score 1-10/10 Calamine/Phenol (Calmoseptine Ointment) 1 applic TOPICAL TID [facility]; Protocol Last Admin: 01/26/20 05:08 Dose: 1 applicatio Documented by: Enoxaparin Sodium (Lovenox) 40 mg SC DAILY [facility] Last Admin: 01/26/20 10:59 Dose: 40 mg Documented by: Gabapentin (Neurontin) 300 mg PO BIDCM [facility] Last Admin: 01/26/20 08:26 Dose: 300 mg Documented by: Pantoprazole Sodium 40 mg/ (Sodium Chloride) 110 mls @ 330 mls/hr IV Q24 [facility] Last Infusion: 01/26/20 12:48 Dose: Infused Documented by: Sodium Chloride () 250 mls @ 15 mls/hr IV .[id number] PRN PRN Reason: Saline Flush Last Infusion: 01/23/20 22:15 Dose: 0 mls/hr Documented by: Sodium Chloride () 250 mls @ 15 mls/hr IV .[id number] PRN PRN Reason: Additional IVPB Infusion Nutritional Formula (Lactose Free) (Ensure Clear) 120 ml PO 4X/DAY [facility] Last Admin: 01/26/20 11:00 Dose: 120 ml Documented by: Nystatin (Mycostatin Powder) 1 applic TOPICAL BID [facility]; Protocol Last Admin: 01/26/20 10:59 Dose: 1 applicatio Documented by: Ondansetron HCl (Zofran) 4 mg IV Q8H PRN PRN PRN Reason: NAUSEA Oxcarbazepine (Trileptal) 300 mg PO DAILY [facility] Last Admin: 01/26/20 10:59 Dose: 300 mg Documented by: Sodium Chloride () 10 - 40 ml IV UD PRN PRN Reason: SALINE FLUSH Last Admin: 01/24/20 02:33 Dose: 10 ml Documented by: Discharge Diet: No Restrictions May shower in (days): 0 - Okay to shower today Call your doctor if your incision/area has: Continuous Slow Oozing, Sudden Increased Bleeding, Increased Pain/ Swelling, Increased Redness, Foul Smelling Discharge, Swelling at the incision site Call your doctor if you observe: Fever of 101 or Higher Remove Dressing in (days):: 0 - Okay to remove OpSite/Band-Aids today Steri- Strips will stay on for 7 to 10 days from surgery after 10 days okay to remove Home Medications: Medications to take at Discharge Gabapentin [Neurontin] 300 mg PO BIDCM 01/20/20 Oxcarbazepine 5 ml PO DAILY 01/20/20 Simvastatin [Zocor] 20 mg PO QHS 01/20/20 Nystatin Powder [Mycostatin Powder] 1 applic TOPICAL BID #1 bottle 01/26/20 Potassium Chloride [K-Dur] 20 meq PO TID #30 tab 01/27/20 Following Prescrptions Were Given to Patient: Potassium Chloride [K-Dur] 20 meq PO TID #30 tab Transmission Status: Received by [facility] Nystatin Powder [Mycostatin Powder] 1 applic TOPICAL BID #1 bottle Other Amb Orders: Basic Metabolic Profile (BMP) Time Frame: 01/29/20, Facility: [facility], Location: Laboratory Primary Care Physician: Héctor Bosch Chi, MD [Primary Care Provider] - Please Follow Up With: Nati Manning MD - After 5 PM and on the weekends call [phone] with any concerns When: Call the office [phone] for a follow-up appointment in 2 weeks Disposition: with vehicle leasing and rental manager-Marilee [place] Medical Necessity - Tobacco Use Smoking Status: Never smoker Meaningful Use Info Meaningful Use Diagnoses (Choose all that apply): None applicable
--- NOTE | 2020-01-26 14:55 | CASEMGMT ---
RN CM in to discuss discharge planning with patient. RN CM introduced self. Per SW, surgeon is recommending HHC at discharge. RN CM explained HHC to patient. Patient became anxious and states she likes her caregiver Marilee. RN CM explained HHC nursing and asked patient to think about it. RN CM inquired if patient would like this RN CM to call caregiver Marilee and patient questioned why and was anxious again. RN CM explained to patient that nothing needed to be decided today and that CM will follow-up with patient tomorrow.
--- NOTE | 2020-01-26 15:36 | NURSING ---
Verbal report received from Ayaka Rueda RN. This RN taking over patient care at this time.
[2020-01-26 16:22] LABS: Potassium 3.7 mmol/L (3.5-5.1)
[2020-01-27 02:59] VITALS: PULSE 78
[2020-01-27 03:45] VITALS: BP 109/67; PULSE 83; RESP 16; TEMP 36.8; O2SAT 93
[2020-01-27] MEDS: Menthol/Lanolin/Calamine/Znox 113 GM Tube 1 APPLIC TOPICAL (05:11)
[2020-01-27 05:40] LABS: Potassium 3.8 mmol/L (3.5-5.1)
[2020-01-27 07:30] VITALS: PULSE 77
[2020-01-27 08:05] VITALS: BP 104/65; PULSE 80; RESP 16; TEMP 36.7; O2SAT 93
[2020-01-27] MEDS: Gabapentin 300 MG Capsule PO (08:05)
[2020-01-27] MEDS: OXcarbazepine 300 MG Tablet PO (08:05)
[2020-01-27] MEDS: Ensure Clear 120 ML Liquid PO (08:05)
[2020-01-27] MEDS: Enoxaparin 40 MG/0.4 ML Syringe SC (08:05)
[2020-01-27] MEDS: Nystatin Powder 15gm Bottle 1 APPLIC TOPICAL (08:06)
[2020-01-27] MEDS: 0.9% Saline Lock 10 ML Syringe IV (08:11)
--- NOTE | 2020-01-27 08:31 | PCM.PN.SRG ---
Subjective: Patient is doing well and tolerating a diet. She is passing bowel movements. She does not describe any abdominal pain. - Physical Exam Vitals/I&O's: Vital Signs Temp Pulse Resp BP Pulse Ox 98.2 F 77 16 109/67 93 01/27/20 03:45 01/27/20 07:30 01/27/20 03:45 01/27/20 03:45 01/27/20 03:45 Oxygen Delivery Method Room Air Weight: 157 lb Body Mass Index (BMI) 29.6 Intake and Output for Last 24 Hours 01/25/20 01/26/20 01/27/20 23:59 23:59 23:59 Intake Total 3192 / 3192 1610 / 1610 120 / 120 Output Total 600 / 600 300 / 300 Balance 2592 / 2592 1310 / 1310 120 / 120 General: Alert, Cooperative Lungs: Normal air movement Abdomen: Soft, Non Tender, Non-Distended Laboratory Results 01/26/20 16:00: Potassium 3.7 01/27/20 05:20: Potassium 3.8 Current Medications Acetaminophen (Tylenol) 650 mg PO Q6H PRN PRN PRN Reason: Pain Score 1-10/10 Calamine/Phenol (Calmoseptine Ointment) 1 applic TOPICAL TID [facility]; Protocol Last Admin: 01/27/20 05:11 Dose: 1 applicatio Documented by: Enoxaparin Sodium (Lovenox) 40 mg SC DAILY [facility] Last Admin: 01/27/20 08:05 Dose: 40 mg Documented by: Gabapentin (Neurontin) 300 mg PO BIDCM [facility] Last Admin: 01/27/20 08:05 Dose: 300 mg Documented by: Pantoprazole Sodium 40 mg/ (Sodium Chloride) 110 mls @ 330 mls/hr IV Q24 [facility] Last Admin: 01/27/20 08:10 Dose: 330 mls/hr Documented by: Sodium Chloride () 250 mls @ 15 mls/hr IV .[id number] PRN PRN Reason: Saline Flush Last Infusion: 01/23/20 22:15 Dose: 0 mls/hr Documented by: Sodium Chloride () 250 mls @ 15 mls/hr IV .[id number] PRN PRN Reason: Additional IVPB Infusion Nutritional Formula (Lactose Free) (Ensure Clear) 120 ml PO 4X/DAY [facility] Last Admin: 01/27/20 08:05 Dose: 120 ml Documented by: Nystatin (Mycostatin Powder) 1 applic TOPICAL BID [facility]; Protocol Last Admin: 01/27/20 08:06 Dose: 1 applicatio Documented by: Ondansetron HCl (Zofran) 4 mg IV Q8H PRN PRN PRN Reason: NAUSEA Oxcarbazepine (Trileptal) 300 mg PO DAILY [facility] Last Admin: 01/27/20 08:05 Dose: 300 mg Documented by: Sodium Chloride () 10 - 40 ml IV UD PRN PRN Reason: SALINE FLUSH Last Admin: 01/27/20 08:11 Dose: 10 ml Documented by: Medical Necessity - Tobacco Use Smoking Status: Never smoker Assessment/Plan 64-year-old female status post laparoscopic sigmoid colectomy for volvulus 1. Patient appears to be doing well. Her incisions are clean dry and intact. Surgical dressings were removed and the Steri-Strips are in place and clean. Patient will be discharged home today with home health care. She was given oral potassium and will need to follow-up with Dr. Bosch. Jose Antonio Simeon MD Pager: [facility] [address] [place] [address], [address] [place] [address] Office:
--- NOTE | 2020-01-27 09:34 | CASEMGMT ---
Per surgeons, they would like pt to have [facility] set up with SN for wound checks and this RN CM to room to discuss with pt at this time. Pt is agreeable with [facility] SN at this time for wound checks. Per previous report, pt was agreeable to [facility] and they had already been contacted as a possible referral. Order placed for SN at this time and per previous report, pt would like her caregiver, Marilee, to take care of therapy. Call to Marilee, caregiver, to confirm all and she is grateful to this RN ELEAZAR and excited for pt to come home at this time. Arline garcia to contact Marilee, caregiver, for ride at discharge, voices understanding. Message left with Ann at [facility] in regards to referral at this time. Belle MOFFETT CM
--- NOTE | 2020-01-31 12:26 | OP.CCLET_ITS ---
01/31/2020 Héctor Bosch MD [address] [place] [address] Re : Flexible Sigmoidoscopy procedure for Apolonia Ortiz Dear Dr. Bosch This procedure was performed on Thursday, January 23, 2020. My impressions and recommendations are as follows: Impressions : - Decompression of the volvulus was attempted and was successful, with complete decompression achieved. - No specimens collected. Recommendations : My findings are described in the full procedure note, which is enclosed. If I can be of further assistance, please feel free to contact me at Doctor phone number(s): , Work: . Sincerely, MD Nati Gonsalez MD 01/23/2020 10:27:25 AM This report has been signed electronically.
--- NOTE | 2020-01-31 12:26 | OP.COLON_ITS ---
Patient Name: Apolonia Ortiz Procedure Date: 01/21/2020 1:23 AM Date of : 1955 Age: 64 Procedure: Colonoscopy Indications: Decompression of sigmoid volvulus, Therapeutic procedure, Abnormal CT of the GI tract Providers: Nati Manning MD Medicines: Monitored Anesthesia Care Patient Profile: This is a 64 year old female. Last Colonoscopy: none. The patient's first colonoscopy is today. Complications: No immediate complications. Procedure: Pre-Anesthesia Assessment: - Prior to the procedure, a History and Physical was performed, and patient medications and allergies were reviewed. The patient's tolerance of previous anesthesia was also reviewed. The risks and benefits of the procedure and the sedation options and risks were discussed with the patient. All questions were answered, and informed consent was obtained. Prior Anticoagulants: The patient has taken no previous anticoagulant or antiplatelet agents. ASA Grade Assessment: Per anesthesia. After reviewing the risks and benefits, the patient was deemed in satisfactory condition to undergo the procedure. After I obtained informed consent, the scope was passed under direct vision. Throughout the procedure, the patient's blood pressure, pulse, and oxygen saturations were monitored continuously. The Colonoscope was introduced through the anus and advanced to the splenic flexure for evaluation. This was the intended extent. The colonoscopy was performed without difficulty. The patient tolerated the procedure well. No bowel preparation was given prior to the procedure. The quality of visualization was inadequate. Scope In: 1:39:34 AM Scope Out: 1:47:08 AM Total Procedure Duration Time 0 hours 7 minutes 34 seconds Findings: A volvulus, with viable appearing mucosa, was found in the sigmoid colon. Decompression of the volvulus was attempted and was successful, with complete decompression achieved. Following the maneuver, a tube (24 Fr Chest tube) was placed to maintain the decompression. A 6 mm, non-bleeding polyp was found in the descending colon. The polyp was semi-pedunculated. Polypectomy was not attempted due to only doing decompression for sigmoid volvulus, pt will need complete colonoscopy. Impression: - Volvulus. Successful complete decompression achieved. Continue rectal tube + flatus and liquid stool from tube and abdomen is soft and non distended-much improved, was tense before decompression - One 6 mm, non-bleeding polyp in the descending colon. Resection not attempted. - No specimens collected. Recommendation: - [facility]. - NPO. - Continue present medications. - Perform a flat plate abdominal x-ray today. - Repeat colonoscopy at appointment to be scheduled. Procedure Code(s): --- Professional --- 39558, 52, Colonoscopy, flexible; with decompression (for pathologic distention) (eg, volvulus, megacolon), including placement of decompression tube, when performed Diagnosis Code(s): --- Professional --- K56.2, Volvulus D12.4, Benign neoplasm of descending colon R93.3, Abnormal findings on diagnostic imaging of other parts of digestive tract CPT copyright 2017 [employer]. All rights reserved. The codes documented in this report are preliminary and upon press machine feeder review may be revised to meet current compliance requirements. MD Nati Gonsalez MD 01/21/2020 2:19:32 AM This report has been signed electronically. Number of Addenda: 0 Note Initiated On: 01/21/2020 1:23 AM
--- NOTE | 2020-01-31 12:26 | OP.CCLET_ITS ---
01/31/2020 Héctor Bosch MD [address] [place] [address] Re : Colonoscopy procedure for Apolonia Ortiz Dear Dr. Bosch This procedure was performed on Tuesday, January 21, 2020. My impressions and recommendations are as follows: Impressions : - Volvulus. Successful complete decompression achieved. Continue rectal tube + flatus and liquid stool from tube and abdomen is soft and non distended-much improved, was tense before decompression - One 6 mm, non-bleeding polyp in the descending colon. Resection not attempted. - No specimens collected. Recommendations : - [facility]. - NPO. - Continue present medications. - Perform a flat plate abdominal x-ray today. - Repeat colonoscopy at appointment to be scheduled. My findings are described in the full procedure note, which is enclosed. If I can be of further assistance, please feel free to contact me at Doctor phone number(s): , Work: . Sincerely, MD Nati Gonsalez MD 01/21/2020 2:19:32 AM This report has been signed electronically.
--- NOTE | 2020-01-31 12:26 | OP.FLEXSIG_ITS ---
Patient Name: Apolonia Ortiz Procedure Date: 01/23/2020 9:24 AM Date of : 1955 Age: 64 Procedure: Flexible Sigmoidoscopy Indications: For therapy of volvulus Providers: Nati Manning MD Medicines: Monitored Anesthesia Care Patient Profile: This is a 64 year old female. Complications: No immediate complications. Procedure: Pre-Anesthesia Assessment: - Prior to the procedure, a History and Physical was performed, and patient medications and allergies were reviewed. The patient's tolerance of previous anesthesia was also reviewed. The risks and benefits of the procedure and the sedation options and risks were discussed with the patient. All questions were answered, and informed consent was obtained. Prior Anticoagulants: The patient has taken no previous anticoagulant or antiplatelet agents. ASA Grade Assessment: Per anesthesia. After reviewing the risks and benefits, the patient was deemed in satisfactory condition to undergo the procedure. After obtaining informed consent, the endoscope was passed under direct vision. Throughout the procedure, the patient's blood pressure, pulse, and oxygen saturations were monitored continuously. The pediatric colonoscope was introduced through the anus with the intention of advancing to the left transverse colon. The scope was advanced to the left transverse colon before the procedure was aborted. Medications were given. The flexible sigmoidoscopy was accomplished without difficulty. The patient tolerated the procedure well. The quality of the bowel preparation was inadequate to identify polyps no prep given. Scope In: 9:54:55 AM Scope Out: 10:06:25 AM Total Procedure Duration Time 0 hours 11 minutes 30 seconds Findings: The perianal and digital rectal examinations were normal. Decompression of the volvulus was attempted and was successful, with complete decompression achieved. Following the maneuver, a 20 Fr chest tube was placed to maintain the decompression. Impression: - Decompression of the volvulus was attempted and was successful, with complete decompression achieved. - No specimens collected. Procedure Code(s): --- Professional --- 12856, 52, Sigmoidoscopy, flexible; with decompression (for pathologic distention) (eg, volvulus, megacolon), including placement of decompression tube, when performed Diagnosis Code(s): --- Professional --- K56.2, Volvulus CPT copyright 2017 [employer]. All rights reserved. The codes documented in this report are preliminary and upon tapper shank review may be revised to meet current compliance requirements. MD Nati Gonsalez MD 01/23/2020 10:27:25 AM This report has been signed electronically. Number of Addenda: 0 Note Initiated On: 01/23/2020 9:24 AM
== END 2020-01-27 12:05 | disposition home health service (06) | DRG 331 ==
LOC: ED 22:45 → PCU 01-21 00:59
PROVIDERS: Admitting Provider Family Medicine; Emergency Provider Emergency Medicine; PCP Family Medicine Geriatric Medicine; Visit Provider Surgery
PROC: 0DJD8ZZ Inspection of Lower Intestinal Tract, Via Natural or Artificial Opening Endoscopic (ICD-10-PCS; CPT 45378; principal; 2020-01-21 01:30)
PROC: 0DTN0ZZ Resection of Sigmoid Colon, Open Approach (ICD-10-PCS; CPT 44204; principal; 2020-01-24 07:05)
DX: K56.2 Volvulus (principal); E87.6 Hypokalemia; B37.9 Candidiasis, unspecified; R33.9 Retention of urine, unspecified; G40.909 Epilepsy, unspecified, not intractable, without status epilepticus; F70 Mild intellectual disabilities; H54.8 Legal blindness, as defined in USA; E78.00 Pure hypercholesterolemia, unspecified
CPT/HCPCS: 36415; 36569; 74018; 74177; 80048; 80076; 81001; 82436; 83605; 83690; 83735; 84100; 84132; 84133; 84300; 85025; 86850; 86900; 86901; 88304; 88307; 93005; 96361; 96374; 97110; 97161; 97166; 97530; 97802; 97803; 99251; 99284; J7030; J7040; J7050; J7120; Q9967; A4216; C1760; G0463; J2405

== ENCOUNTER → 2020-01-31 14:54 | Outpatient (CLI) | payer MEDICARE, MEDICAID, SELFPAY ==
[2020-01-24 05:57] VITALS: BMI 29.6
[2020-01-31 16:40] LABS: Anion Gap 8 (5-15); BUN 7 mg/dL (7-18); BUN/Creat Ratio 12.4 RATIO (10-20); Calcium,Total 8.6 mg/dL (8.5-10.1); Chloride 104 mmol/L (98-107); Creatinine, Serum 0.57 mg/dL (0.55-1.02); EST Glomerular Filtration Rate 114 mL/min (>60); Est Glom Filt Rate - Afr Amer 137 mL/min (>60); Glucose 79 mg/dL (74-106); Potassium 3.6 mmol/L (3.5-5.1); Sodium Level 136 mmol/L (136-145)
== END ==
PROVIDERS: PCP Family Medicine Geriatric Medicine; Referring Provider Surgery; Visit Provider Surgery
DX: E87.6 Hypokalemia (principal)
CPT/HCPCS: 36415; 80048

== ENCOUNTER → 2020-02-01 15:51 | Outpatient (CLI) | payer MEDICARE, MEDICAID, SELFPAY ==
[2020-01-24 05:57] VITALS: BMI 29.6
--- NOTE | 2020-02-01 16:05 | RAD_ITS ---
We are attempting to reach an attending provider to discuss findings. An addendum with communication details will be sent when the communication is complete. STUDY: X-RAY - ABDOMEN/PELVIS REASON FOR EXAM: Female, 64 years old. Bloating TECHNIQUE: 3 views of the abdomen COMPARISON: None. FINDINGS: Normal visualized lung bases. Markedly distended gas-filled loops of bowel throughout the abdomen including both large and small bowel. Small bowel loops measure up to 5 cm. No gross evidence for free air or pneumatosis. The visualized liver, spleen and kidneys are grossly normal in size and morphology. Normal soft tissue structures. Left hip arthroplasty. RAD/Abd Inc Decub and/or Erect IMPRESSION: Diffusely dilated large and small bowel. Cannot exclude a bowel obstruction. Electronically Signed: Darnell Casanova, at 17:44 EDT Tel , Service support ,
[2020-02-01 18:21] LABS: Anion Gap 8 (5-15); BUN 5 mg/dL (7-18); BUN/Creat Ratio 8.3 RATIO (10-20); Calcium,Total 8.5 mg/dL (8.5-10.1); Chloride 102 mmol/L (98-107); EST Glomerular Filtration Rate 105 mL/min (>60); Est Glom Filt Rate - Afr Amer 128 mL/min (>60); Glucose 78 mg/dL (74-106); Potassium 3.8 mmol/L (3.5-5.1); Sodium Level 134 mmol/L (136-145)
== END ==
PROVIDERS: PCP Family Medicine Geriatric Medicine; Referring Provider Family Medicine Geriatric Medicine; Visit Provider Family Medicine Geriatric Medicine
DX: E87.6 Hypokalemia (principal); R19.07 Generalized intra-abdominal and pelvic swelling, mass and lump
CPT/HCPCS: 36415; 74019; 80048

== ENCOUNTER → 2020-02-02 12:22 | Outpatient (CLI) | payer MEDICARE, MEDICAID, SELFPAY ==
[2020-01-24 05:57] VITALS: BMI 29.6
--- NOTE | 2020-02-02 12:29 | CT_ITS ---
STUDY: CT ABDOMEN AND PELVIS WITH CONTRAST REASON FOR EXAM: Female, 64 years old. LARGE BOWEL OBSTRUCTION, RECENT SIGMOIDECTOMY RADIATION DOSAGE (If Supplied By Facility): CTDIvol = ( 13.34 ) mGy, DLP = ( 860.65 ) mGycm TECHNIQUE: Transaxial images were obtained from the dome of the diaphragm to the symphysis pubis with oral contrast. Oral and IV Gastrografin and 100mL Isovue-300 was administered. Sagittal and coronal images were reconstructed. Individualized dose optimization techniques were used for this CT. COMPARISON: 01/20/2020 FINDINGS: Tiny bilateral pleural effusions. Moderate pericardial effusion. Normal liver. Normal gallbladder and extrahepatic biliary system. Normal spleen. Normal pancreas. Normal bilateral adrenal glands. Normal right kidney. Normal left kidney. Normal visualized stomach. Normal small intestine. Suture line in the sigmoid colon. The appendix is visualized and appears normal. Normal abdominal aorta. Normal inferior vena cava. Normal retroperitoneum. Normal urinary bladder. 4 cm round fluid collection within the subcutaneous fat of the anterior abdominal wall the midline inferior to the umbilicus likely consistent with a postoperative seroma, chronic hematoma or abscess. Status post left hip arthroplasty which produces streak artifact and obscures the pelvis. CT/Abdomen/Pelvis WITH Contrast IMPRESSION: 1. Tiny bilateral pleural effusions. 2. Moderate pericardial effusion. 3. 4 cm postoperative fluid collection within the subcutaneous fat of the anterior abdominal wall in the midline just inferior to the umbilicus likely consistent with a postoperative seroma. Other possibilities include chronic hematoma or abscess. Electronically Signed: Zack Webster MD at 17:00 EDT Tel , Service support ,
== END ==
PROVIDERS: PCP Family Medicine Geriatric Medicine; Referring Provider Family Medicine Geriatric Medicine; Visit Provider Family Medicine Geriatric Medicine
DX: K56.609 Unspecified intestinal obstruction, unspecified as to partial versus complete obstruction (principal)
CPT/HCPCS: 74177; Q9967

== ENCOUNTER → 2020-06-20 15:02 | Outpatient (CLI) | payer MEDICARE, MEDICAID, SELFPAY ==
[2020-01-24 05:57] VITALS: BMI 29.6
[2020-06-20 17:57] LABS: ALB/GLOB Ratio 0.9 RATIO (0.9-2.4); AST(SGOT) 34 U/L (15-37); Alanine Aminotransfer ALT/SGPT 21 U/L (13-56); Albumin, Serum 3.5 g/dL (3.2-5.0); Alkaline Phosphatase 112 U/L (45-117); Anion Gap 10 (5-15); BUN 13 mg/dL (7-18); BUN/Creat Ratio 14.6 RATIO (10-20); Chloride 103 mmol/L (98-107); Creatinine, Serum 0.89 mg/dL (0.55-1.02); EST Glomerular Filtration Rate 67 mL/min (>60); Est Glom Filt Rate - Afr Amer 81 mL/min (>60); Glucose 92 mg/dL (74-106); Potassium 4.7 mmol/L (3.5-5.1); Protein, Total 7.5 g/dL (6.4-8.2); Sodium Level 138 mmol/L (136-145); Thyroid Stim Hormone (TSH) 3.32 uIU/mL (0.358-3.74)
[2020-06-20 18:01] LABS: Vitamin D,25 Hydroxy 15.1 ng/mL
== END ==
PROVIDERS: PCP Family Medicine Geriatric Medicine; Visit Provider Family Medicine Geriatric Medicine
DX: E55.9 Vitamin D deficiency, unspecified (principal); R53.83 Other fatigue
CPT/HCPCS: 36415; 80053; 82306; 84443

== ENCOUNTER 2020-08-14 20:04 | Inpatient (IN) | payer MEDICARE, MEDICAID, SELFPAY ==
[2020-01-24 05:57] VITALS: BMI 29.6
[2020-08-14 20:05] VITALS: PULSE 86; RESP 20; TEMP 36.5; O2SAT 95; BMI 26.5
[2020-08-14 21:14] VITALS: BP 109/68; PULSE 63; RESP 15; O2SAT 98
[2020-08-14] MEDS: 0.9% Normal Saline 1,000 ML 1000 ML IV (21:52)
[2020-08-14 22:17] LABS: Absolute Lymphocyte Count 3.07 X10^3/uL (0.83-4.51); Absolute Neutrophil Count 6.4 X10^3/uL (2.0-7.7); Basophil# 0.07 X10^3/uL; Basophil% 0.7 % (0-1); Eosinophil# 0.03 X10^3/uL; Eosinophils% 0.3 % (0-5); Hematocrit 50.5 % (37-47); Hemoglobin 15.2 g/dL (12.0-15.0); Lymphocyte # 3.07 X10^3/ul (4.0); Lymphocyte % 30.2 % (19-41); Mean Corp Hgb Conc 30.1 g/dL (32-36); Mean Corpuscular Hgb 28.2 pg (27.0-32.0); Mean Corpuscular Volume 93.7 fL (81-99); Mean Platelet Vol. 10.3 fl (6.2-12.0); Monocyte# 0.57 X10^3/uL; Monocyte% 5.6 % (0-10); NRBC Flagged by Analyzer 0 % (0-5); Neutrophil # 6.39 X10^3/uL (2.7-7.7); Neutrophil % 62.7 % (47-70); Platelet Count 326 K/mm3 (150-450); RBC Distribution Width CV 14.2 % (11.6-14.6); RBC Distribution Width SD 49.2 fl (35.1-43.9); Red Blood Count 5.39 M/mm3 (4.2-5.4); White Blood Count 10.2 K/mm3 (4.4-11.0)
[2020-08-14 22:20] VITALS: BP 99/60; PULSE 54; RESP 16
[2020-08-14 22:31] LABS: Anion Gap 6 (5-15); BUN 28 mg/dL (7-18); BUN/Creat Ratio 23.5 RATIO (10-20); Calcium,Total 9.4 mg/dL (8.5-10.1); Chloride 128 mmol/L (98-107); Creatinine, Serum 1.19 mg/dL (0.55-1.02); EST Glomerular Filtration Rate 48 mL/min (>60); Est Glom Filt Rate - Afr Amer 58 mL/min (>60); Estimated Creatinine Clearance 36.78 ml/min; Glucose 122 mg/dL (74-106); Potassium 3.9 mmol/L (3.5-5.1); Sodium Level 163 mmol/L (136-145)
[2020-08-14 23:00] VITALS: BP 98/60; PULSE 66; RESP 15
--- NOTE | 2020-08-14 23:39 | ED.DCSUM_ITS ---
- ER Visit Summary Date of Service: 08/14/20 Chief Complaint: Reported seizure History of Present Illness: The patient is a 64 F history of prior sigmoid valgus with surgical repair, seizure and blind. Patient herself is unable to give any history. I did speak to her caregiver at the home she lives in. They state last several days patient's had decreased oral intake. She has had some intermittent urinary incontinence. And today they found her having a tonic- clonic seizure on the floor. She has a known seizure history but typically they are not tonic-clonic and she has had a seizure for quite some time according to the caregiver. They deny any recent head trauma. He denies any recent fever. Physical Examination: Older female vital signs are stable afebrile. Pulse ox 90% on room air no signs hypoxia. H EENT exam no signs of facial or scalp trauma no hematomas. Nontender. Legally blind. Dry mucous membranes. Neck nontender. Trachea midline. Lungs clear to auscultation bilaterally. Heart regular rhythm rate about 65 no murmur. Chest wall nontender. Abdomen soft nontender. Normal bowel sounds no peritoneal signs. Nondistended no signs of obstruction. Well-healed prior lower midline incision. Extremities moves all 4. No deformities. Neurologically she is awake. She is moving. She does not answer questions but does follow limited commands such as open your mouth and stick out your tongue. Test Results: CBC shows normal white count of 10. Hemoglobin 15. No bands chemistries show a hyponatremia with a sodium 163 and a chloride of 128. Gap is 6. BUN is 28 creatinine 1.1 consistent with dehydration. CAT scan of the brain and urinalysis are both pending checked out to the overnight physician. Emergency Department Course and Treatment: Patient had a seizure and clinically looks dehydrated. She is receiving IV fluids x2 L. Zofran IV for nausea. 1 mg of Ativan in order to relax her to hopefully get the CAT scan. On repeat exam at 2345 patient is resting comfortably. No substantial changes. She is currently receiving IV fluids.. Treatment Plan: I have already spoken to the night hospitalist. Patient will be admitted to [facility]. I have checked the patient out to the overnight ER physician who will check the CAT scan and urinalysis results and address those as needed. Disposition: Admission to [facility] Impression: Acute seizure with prior history of seizure disorder Acute electrolyte abnormalities (Hypernatremia) Acute dehydration Legally blind This note was generated with [employer] dictation software. It may contain incorrect words, spelling, and punctuation that were not noted in review of the chart prior to signing ED Disposition - Plan for ED Patient: Referrals: Héctor Bosch Chi, MD [Primary Care Provider] -
[2020-08-14] MEDS: Ondansetron 4 MG/2 ML Vial IV (23:59)
[2020-08-14] MEDS: LORazepam 2 MG/ML Syringe 1 MG IV (23:59)
[2020-08-15] VITALS (21 sets, daily range): BP systolic 74–120; BP diastolic 35–67; PULSE 50–72; RESP 14–18; TEMP 36.1–36.6; O2SAT 94–100; BMI 20.8
--- NOTE | 2020-08-15 00:03 | NURSING ---
caregiver (Marilee) and Legal Guardian (Halie) called and notified that the patient would be admitted.
[2020-08-15 00:15] LABS: CPK Total, Creatine Kinase 46 U/L (26-192)
--- NOTE | 2020-08-15 00:16 | PCM.HP.STD ---
Problem List (1) Seizures Status: Acute (2) Hypernatremia Status: Acute (3) Hyperchloremia Status: Acute (4) Legal blindness Status: Acute (5) Dehydration Status: Acute History of Present Illness Date of Admission: 08/15/20 Chief Complaint: altered mental status The patient is a 64 year old F with a significant history of legal blindness; developmental delay; seizure disorder who presents at the emergency department with altered mental status x1 day. Patient lives with a caregiver. On day of presentation patient was found lying on the floor. She was curled up and was mumbling. Her caregiver reports that patient had a hand contracted backwards. Associated with her symptoms is vomiting. In the last 4 to 5 days patient has been incontinent of urine. She has not been eating much. Past Medical History Medical History: Medical History (Last Reviewed 08/15/20 @ 02:[address] Barney Hamilton MD) Mild mental handicap F70 Seizure disorder G40.909 Allergies bee venom protein (honey bee) Allergy (Verified 01/20/20 22:20) Anaphylaxis Home Medications: Ambulatory Orders Medication Instructions Recorded Gabapentin [Neurontin] 300 mg PO BIDCM 01/20/20 Oxcarbazepine [Trileptal] 300 mg PO QHS 08/14/20 Surgical History: - - left hip; bowel surgery for volvulus. Smoking Status: Never smoker - *Family History Maternal History Items: Cancer Paternal History Items: - - Patient has mental retardation and unable to provide pertanal medical history. Caregiver does not know patient's paternal medical history. Review of Systems Constitutional: Denies: Chills, Fever, Weight Change HEENT: Denies: Head Aches, Sinus Congestion, Sinus Drainage Cardiovascular: Denies: Chest Pain, Palpitations Respiratory: Denies: Cough, Shortness of breath at rest, Sputum production Gastrointestinal: Reports: Nausea. Denies: Abdominal Pain, Vomiting Genitourinary: Denies: Dysuria Musculoskeletal: Denies: Joint Pain, Joint Tenderness Skin: Denies: Rash, Wounds Neurological: Reports: Slurred speech. Denies: Focal weakness, Numbness, Tingling Psychiatric: Denies: Anxiety, Depression, Homicidal Ideations, Suicidal Ideations Hematologic/ Lymphatic: Denies: Easy Bruising, Easy Bleeding VTE Information - Inpt Only VTE Present on Admission: No VTE Mechan Device Prophylaxis: None VTE Pharm Prophylaxis ordered?: Yes Patient Problems: Active and Suspected Problems (Last Updated 01/21/20 @ 01:[address] Nati Manning MD) Seizures (Acute) Hypernatremia (Acute) Hyperchloremia (Acute) Legal blindness (Acute) Dehydration (Acute) - Physical Exam Vitals/I&O's: Vital Signs Temp Pulse Resp BP Pulse Ox 97.7 F L 66 15 98/60 98 08/14/20 20:05 08/14/20 23:00 08/14/20 23:00 08/14/20 23:00 08/14/20 21:14 Oxygen Delivery Method Room Air Weight: 65.771 kg Body Mass Index (BMI) 26.5 General: Confused, Lethargic HEENT: Atraumatic, EOMI, Normocephalic Oral: Dry Mucosa Neck: Supple, No JVD, Negative Carotid Bruits Lungs: Clear to auscultation, Normal air movement Cardiovascular: Regular rate, Normal S1, Normal S2, No murmurs Abdomen: Bowel Sounds Present, Soft, Non Tender Extremities: No edema, Capillary Refill Less than 3 Seconds Skin: Ulcer/ Wound - Sacrococcygeal area, Excoriated - Coccygeal area Musculoskeletal: No Muscle Wasting Neurological: Deep Tendon Reflexes 2+/4 and Symmetrical Psych/Mental Status: Normal Affect Laboratory Results 08/14/20 19:54: WBC 10.2, RBC 5.39, Hgb 15.2 H, Hct 50.5 H, MCV 93.7, MCH 28.2, MCHC 30.1 L, RDW Std Deviation 49.2 H, RDW Coeff of Jose 14.2, Plt Count 326, MPV 10.3, Immature Gran % (Auto) 0.500, Neut % (Auto) 62.7, Lymph % (Auto) 30.2, Bourbon % (Auto) 5.6, Eos % (Auto) 0.3, Baso % (Auto) 0.7, Absolute Neuts (auto) 6.4, Absolute Lymphs (auto) 3.07, Nucleated RBC % 0 08/14/20 19:54: Sodium 163 H*, Potassium 3.9, Chloride 128 H*, Carbon Dioxide 29.0, Anion Gap 6, BUN 28 H, Creatinine 1.19 H, Estim Creat Clear Calc 36.78, Est GFR (MDRD) Af Amer 58 L, Est GFR (MDRD) Non-Af 48 L, BUN/Creatinine Ratio 23.5 H, Glucose 122 H, Calcium 9.4 08/14/20 19:54: Total Creatine Kinase 46 Current Medications Sodium Chloride () 1,000 mls @ 999 mls/hr IV .Q1H1M ONE Stop: 08/15/20 00:45 Assessment/Plan All Active Problems (Last Updated 01/21/20 @ 01:[address] Nati Manning MD) Seizures (Acute) Hypernatremia (Acute) Hyperchloremia (Acute) Legal blindness (Acute) Dehydration (Acute) Acute encephalopathy likely secondary to seizure. Clinical monitoring. CT of head ordered at emergency department; follow. Urinalysis ordered at the ED; follow. Acute on chronic seizures Hold home gabapentin and Trileptal as patient may not be to take p.o. at this time Keppra 500 mg IV every 12 hours Check procalcitonin and CPK Check EEG. Consider SOC consult. Hypernatremia and hyperchloremia Likely secondary to dehydration Treatment as below. Dehydration Received normal saline bolus in the emergency department Normal saline 150 MLS per hour. Trend BMP. KALANI Creatinine of 1.19. Baseline creatinine is around 0.65. BUN is 28. BUN over creatinine is 23.5. Likely from dehydration IVF as above Trend BMP Stage II decubitus ulcer Calmoseptine cream ordered. DVT Prohylaxis Subcutaneous Lovenox. Inpatient E&M: 64503 Init Hosp L3
[2020-08-15] MEDS: 0.9% Normal Saline 1,000 ML 999 ML IV (01:25)
[2020-08-15 02:25] LABS: Color, Urine Straw (Yellow); Glucose, Dipstick Normal (Normal); Ketone-Dipstick Negative (Negative); Leukocyte Esterase-Dipstick 25 /ul (Negative); Mucous, Urine 0 SEEN /hpf (<or=2+); Nitrite-Dipstick Negative (Negative); Occult Blood-Urine 150 /ul (Negative); Protein-Dipstick 30 mg/dl (Negative); Specific Gravity, Urine 1.025 (1.002-1.030); Squamous Epithelial Cells - UA 0 SEEN /hpf (5-10); Urine Bilirubin Dipstick Negative (Negative); Urine Clarity Clear (Clear); Urine Urobilinogen 1 mg/dl (Normal)
[2020-08-15 02:31] LABS: Bacteria 2+ /hpf (None Seen); Red Blood Cells-Urine 5-10 SEEN /hpf (0-5); White Blood Cells 0-5 SEEN /hpf (0-5)
[2020-08-15] MEDS: 0.9% Normal Saline 1,000 ML 150 ML IV ×2 (03:38→11:28)
[2020-08-15] MEDS: Ceftriaxone 1 GM/50 ML BAG IV ×2 (05:23→22:12)
[2020-08-15] MEDS: Menthol/Lanolin/Calamine/Znox 113 GM Tube 1 APPLIC TOPICAL ×2 (05:46→21:54)
[2020-08-15 06:49] LABS: Absolute Lymphocyte Count 1.65 X10^3/uL (0.83-4.51); Absolute Neutrophil Count 5.4 X10^3/uL (2.0-7.7); Basophil# 0.03 X10^3/uL; Basophil% 0.4 % (0-1); Eosinophil# 0.03 X10^3/uL; Eosinophils% 0.4 % (0-5); Hematocrit 39.4 % (37-47); Hemoglobin 11.7 g/dL (12.0-15.0); Lymphocyte # 1.65 X10^3/ul (4.0); Lymphocyte % 21.9 % (19-41); Mean Corp Hgb Conc 29.7 g/dL (32-36); Mean Corpuscular Hgb 27.9 pg (27.0-32.0); Monocyte# 0.44 X10^3/uL; Monocyte% 5.8 % (0-10); NRBC Flagged by Analyzer 0 % (0-5); Neutrophil # 5.36 X10^3/uL (2.7-7.7); Neutrophil % 71.2 % (47-70); Platelet Count 223 K/mm3 (150-450); RBC Distribution Width CV 14.1 % (11.6-14.6); Red Blood Count 4.19 M/mm3 (4.2-5.4); White Blood Count 7.5 K/mm3 (4.4-11.0)
[2020-08-15 07:48] LABS: Anion Gap 4 (5-15); BUN 22 mg/dL (7-18); BUN/Creat Ratio 32.3 RATIO (10-20); Calcium,Total 7.7 mg/dL (8.5-10.1); Chloride 131 mmol/L (98-107); Creatinine, Serum 0.68 mg/dL (0.55-1.02); EST Glomerular Filtration Rate 92 mL/min (>60); Est Glom Filt Rate - Afr Amer 111 mL/min (>60); Estimated Creatinine Clearance 43.77 ml/min; Glucose 95 mg/dL (74-106); Potassium 3.1 mmol/L (3.5-5.1); Prolactin 35.8 ng/mL; Sodium Level 160 mmol/L (136-145)
[2020-08-15] MEDS: Enoxaparin 40 MG/0.4 ML Syringe SC (10:33)
--- NOTE | 2020-08-15 11:29 | PCM.NTREPORT ---
Nutrition Therapy Report - History Nutrition Services has been consulted to:: Manage nutrient details of diet order Current diet / nutrition support order:: NPO - Anthropometric Measurements Height:: 5 ft 2 in Weight:: 51.7 kg Body Mass Index (BMI):: 20.8 - Relevant Labs Relevant Labs:: RBC 4.19 M/mm3 (4.2-5.4) L 08/15/20 06:30 Hgb 11.7 g/dL (12.0-15.0) L 08/15/20 06:30 Hct 50.5 % (37-47) H 08/14/20 19:54 MCHC 29.7 g/dL (32-36) L 08/15/20 06:30 RDW Std Deviation 49.0 fl (35.1-43.9) H 08/15/20 06:30 Neut % (Auto) 71.2 % (47-70) H 08/15/20 06:30 Sodium 160 mmol/L (136-145) H 08/15/20 06:30 Potassium 3.1 mmol/L (3.5-5.1) L 08/15/20 06:30 Chloride 131 mmol/L (98-107) H* 08/15/20 06:30 Anion Gap 4 (5-15) L 08/15/20 06:30 BUN 22 mg/dL (7-18) H 08/15/20 06:30 Creatinine 1.19 mg/dL (0.55-1.02) H 08/14/20 19:54 Est GFR (MDRD) Af Amer 58 mL/min (>60) L 08/14/20 19:54 Est GFR (MDRD) Non-Af 48 mL/min (>60) L 08/14/20 19:54 BUN/Creatinine Ratio 32.3 RATIO (10-20) H 08/15/20 06:30 Glucose 122 mg/dL (74-106) H 08/14/20 19:54 Calcium 7.7 mg/dL (8.5-10.1) L 08/15/20 06:30 - Assessment Food / Nutrition-Related History:: Pt is nonverbal at this time--per EMR review appears to have had significant wt loss. Noted discrepant wts in chart this admit 65.[address] pt appears to have had significant wt loss x past 5-7 months--RN will attempt another wt to verify wt/wt loss since last admit in 01/2020. BL buttocks red--pressure injury per progress notes; warrants protein for wound healing as able to take PO nutrition. Pt ordered regular diet as well as NPO after discussion with BETINA Metzger--will d/c regular diet as pt is not able to take PO at this time. Suspect poor intake user acceptance tester but, unable to verify at this time. Unable to perform NFPE due to lethargy and unable to awaken patient. Calculated wt loss ~10-25% x past 5-7 months depending on accuracy of admit wt--requested reweigh with BETINA Metzger. Suspect suboptimal oral intake user acceptance tester but, unable to quantify at this time. - Nutrition Diagnosis Problem / Etiology / Signs & Symptoms (PES):: Moderate to severe pro/nicolle malnutrition likely in the context of social circumstance related to inadequate caloric intake or ability to safely take PO as evidenced by wt loss at least 10% and as great as 25% x past 5-7 months, compromised skin status and suspected inadequate oral intake. Evidence of Malnutrition Exists:: Yes Moderate PCM:: Social & Environmental circumstances - Nutrition Intervention Nutrition Prescription:: Estimated nutrition needs~0304-0274 kcal and ~60-70 gm protein for repletion. - Food / Nutrient Delivery Interventions Summary of nutrition intervention:: Pt is currently NPO--suggest [employer] SALESPERSON swallow eval for assessment of PO safety. If deemed unsafe for PO, suggest TF support for nutrition to replete kcal/pro and promote wound healing. Nutrition support ordered as / adjusted to:: Currently NPO; no TF/TPN support. Nutrition education provided?: No - MNT Monitoring Further MNT monitoring and evaluation required?: Yes MNT Follow-up in:: 3-5 days
[2020-08-15] MEDS: 0.45% Normal Saline 1,000 ML 150 ML IV ×3 (12:24→22:12)
--- NOTE | 2020-08-15 13:21 | TELEMED_ITS ---
[facility] Telemed has confirmed receipt of a request for visit. This document confirms receipt of the order initiating the consult. To find the results of the consultation, please view the patient's reports for the scanned Telemed Consult.
--- NOTE | 2020-08-15 13:35 | CASEMGMT ---
Addendum entered by Ludivina Taylor 08/15/20 14:21: Domenica MOFFETT updated on discussion with caregiver, voices understanding. SStaten BETINA BUSH Original Note: BETINA BUSH assessment: Phone interview with patient caregiver, Marilee Alvarado, for initial transition planning/care coordination assessment d/t pt not being able to complete assessment at this time. BETINA BUSH introduced self and role at [facility], caregiver voices understanding and consents to assessment at this time. Per Marilee, she has been pt's caregiver for the last 8 years and pt lives with her. Per Domenica MOFFETT, pt is only alert to self at this time and is not really following commands. Per Marilee, this is not pt's normal. Marilee states that pt is normally alert and able to ambulate on own without assistive device. Per Marilee, they have 'been battling with reddened buttocks' and she has a hospital bed being delivered so that pt can be re-positioned. Currently, she states pt spends most of time in her recliner and even sleeps in there. She states that pt has been incontinent 'for awhile' but she will go to the bathroom on her own at times. She states pt wears pull ups at home. Care providers, pharmacy, and demographics verified at this time. 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 EMS reports a hx of sz's but it has been a long time since her last one Admitting dx: Hypernatremia, seizures PCP: Hiro Specialists: Caregiver states none currently but plans on getting referral for pt to go to neurologist for her seizures. Preferred Pharmacy: [facility] Insurance: [facility], [facility] Prescription Benefit: ALICIA Living Will/HPOA: Caregiver states that pt does not currently have a LW/HPOA but that guardian is going to have LW set up for pt in the near future. LNOK: Marilee Alvarado, caregiver; Halie Qasim, legal guardian; Jessica Cardenas, friend/previous guardian/caregiver's mother Living Arrangements: Pt lives with caregiver in mobile home with 5 steps into home and previously had no concerns getting into or around in home. Caregiver assists with ADL's. Transportation: Caregiver drives and states no transportation concerns at this time. DME/HHC: Pt has no current DME but there is a hospital bed being set up already. Pt had been to [facility] in the past and has had [facility] in the past. Pt is disabled. Pt does not smoke cigarettes or drink ETOH. Caregiver voices no further concerns/needs at this time. CM to follow PT/OT evals and for any further discharge planning/needs. Advised caregiver to call this RN CM if any further questions/concerns/needs arise, voices understanding. Plan: TBD, pending clinical course, PT/OT evals, etc. SStaten RN CM
--- NOTE | 2020-08-15 14:44 | NURSING ---
wound photo: buttocks
[2020-08-15 15:58] LABS: Anion Gap 1 (5-15); BUN 19 mg/dL (7-18); BUN/Creat Ratio 28.5 RATIO (10-20); Calcium,Total 7.3 mg/dL (8.5-10.1); Creatinine, Serum 0.67 mg/dL (0.55-1.02); EST Glomerular Filtration Rate 94 mL/min (>60); Est Glom Filt Rate - Afr Amer 114 mL/min (>60); Estimated Creatinine Clearance 43.77 ml/min; Glucose 82 mg/dL (74-106); Potassium 3.1 mmol/L (3.5-5.1); Sodium Level 160 mmol/L (136-145)
[2020-08-15 16:00] LABS: Chloride 132 mmol/L (98-107)
--- NOTE | 2020-08-15 23:05 | CT_ITS ---
HISTORY: FULL BODY SEIZURE X SEVERAL MINUTES,PT IS KYPHOTIC AND IN THE POSITION,SOMEWHAT UNRESPONSIVEHX:SEIZURES,BLINDNESS ADDITIONAL HISTORY: None provided. COMPARISON: 12/29/2018 EXAMINATION/TECHNIQUE: CT Head or Brain W/O Contrast Injection. Axial, coronal and sagittal images. Number of images including paperwork: 245. A radiation dose optimization technique was used for this scan. FINDINGS: BRAIN: No acute hemorrhage or mass. No definite acute infarct; MRI more sensitive. Brain appears similar. VENTRICULAR SYSTEM: No hydrocephalus. PARANASAL SINUSES AND MASTOIDS: No air-fluid level in the imaged extent. ORBITS: Bilateral phthisis bulbi SKELETON AND SOFT TISSUES: Calvarium intact. ASPECTS score: Not applicable. CT/Brain/Head without Contrast IMPRESSION: No acute intracranial abnormality. Individualized dose optimization techniques were used for this CT. at 0050 Reported and signed by: Mae Mike MD Electronically Signed: Mae Mike MD at 0:50 EST Tel , Service support ,
[2020-08-16] VITALS (11 sets, daily range): BP systolic 109–146; BP diastolic 65–89; PULSE 39–85; RESP 16–18; TEMP 36.1–36.7; O2SAT 97–99
[2020-08-16 07:32] LABS: Absolute Lymphocyte Count 1.76 X10^3/uL (0.83-4.51); Absolute Neutrophil Count 4.1 X10^3/uL (2.0-7.7); Basophil# 0.04 X10^3/uL; Basophil% 0.6 % (0-1); Eosinophil# 0.07 X10^3/uL; Eosinophils% 1.1 % (0-5); Hematocrit 43.6 % (37-47); Hemoglobin 12.5 g/dL (12.0-15.0); Lymphocyte # 1.76 X10^3/ul (4.0); Lymphocyte % 27.5 % (19-41); Mean Corp Hgb Conc 28.7 g/dL (32-36); Mean Corpuscular Hgb 28.4 pg (27.0-32.0); Mean Corpuscular Volume 99.1 fL (81-99); Monocyte# 0.45 X10^3/uL; NRBC Flagged by Analyzer 0 % (0-5); Neutrophil # 4.07 X10^3/uL (2.7-7.7); Neutrophil % 63.5 % (47-70); Platelet Count 185 K/mm3 (150-450); RBC Distribution Width CV 13.7 % (11.6-14.6); RBC Distribution Width SD 50.6 fl (35.1-43.9); White Blood Count 6.4 K/mm3 (4.4-11.0)
[2020-08-16 07:39] LABS: Anion Gap 6 (5-15); BUN 12 mg/dL (7-18); BUN/Creat Ratio 18.9 RATIO (10-20); Chloride 123 mmol/L (98-107); Creatinine, Serum 0.64 mg/dL (0.55-1.02); EST Glomerular Filtration Rate 99 mL/min (>60); Est Glom Filt Rate - Afr Amer 120 mL/min (>60); Estimated Creatinine Clearance 43.18 ml/min; Glucose 59 mg/dL (74-106); Sodium Level 153 mmol/L (136-145)
[2020-08-16 08:33] LABS: Magnesium 2.3 mg/dL (1.6-2.6); Phosphorus 2.6 mg/dL (2.5-4.9)
[2020-08-16] MEDS: Enoxaparin 40 MG/0.4 ML Syringe SC (11:01)
[2020-08-16] MEDS: Potassium Chloride 10mEq/100mL 10 MEQ/100 ML IV.SOLN. 100 MEQ IV BOLUS ×2 (11:02→12:10)
[2020-08-16] MEDS: Menthol/Lanolin/Calamine/Znox 113 GM Tube 1 APPLIC TOPICAL ×2 (11:04→21:05)
[2020-08-16] MEDS: 0.45% Normal Saline 1,000 ML 150 ML IV ×2 (12:10→20:03)
--- NOTE | 2020-08-16 14:32 | NURSING ---
Read and reviewed SN documentation
--- NOTE | 2020-08-16 14:55 | PN_ITS ---
Patient Problems: Active and Suspected Problems (Last Reviewed 08/15/20 @ 02:[address] Barney Hamilton MD) Seizures (Acute) Hypernatremia (Acute) Hyperchloremia (Acute) Legal blindness (Acute) Dehydration (Acute) Subjective: Much more alert and responds appropriately to questions Vitals/I&O's: Vital Signs Temp Pulse Resp BP Pulse Ox 98.0 F 78 17 136/78 H 99 08/16/20 11:13 08/16/20 11:13 08/16/20 11:13 08/16/20 11:13 08/16/20 11:13 Oxygen Delivery Method Room Air Weight: 113 lb 15.664 oz Body Mass Index (BMI) 20.8 Intake and Output for Last 24 Hours 08/14/20 08/15/20 08/16/20 23:59 23:59 23:59 Intake Total 5470.0 / 5470.0 1180.0 / 1180.0 Output Total 325 / 355 1330 / 1330 Balance 5145.0 / 5115.0 -150.0 / -150.0 General: Cooperative, No apparent distress, Disoriented HEENT: Atraumatic, PERRLA, EOMI, Normocephalic Oral: Moist Mucosa Neck: Supple, No JVD Lungs: Clear to auscultation, Normal air movement, No rhonchi, No wheeze, No rales Cardiovascular: Regular rate, Regular Rhythm, Normal S1, Normal S2, No murmurs Abdomen: Soft, Non Tender, Non-Distended, No Hepato-splenomegaly Extremities: No edema, Capillary Refill Less than 3 Seconds Skin: No rashes, No breakdown Neurological: Deep Tendon Reflexes 2+/4 and Symmetrical, Neuro grossly intact, Sensory exam intact to light touch and pain Psych/Mental Status: Flat Affect Microbiology Past 72 Hours 08/15/20 02:10 Urine, Catheterized Urine Culture - Preliminary Culture exhibits no growth. Laboratory Results 08/15/20 15:17: Sodium 160 H, Potassium 3.1 L, Chloride 132 H*, Carbon Dioxide 27.0, Anion Gap 1 L, BUN 19 H, Creatinine 0.67, Estim Creat Clear Calc 43.77, Est GFR (MDRD) Af Amer 114, Est GFR (MDRD) Non-Af 94, BUN/Creatinine Ratio 28.5 H, Glucose 82, Calcium 7.3 L 11/13/20 06:40: WBC 6.4, RBC 4.40, Hgb 12.5, Hct 43.6, MCV 99.1 H D, MCH 28.4, MCHC 28.7 L, RDW Std Deviation 50.6 H, RDW Coeff of Jose 13.7, Plt Count 185, MPV 10.0, Immature Gran % (Auto) 0.300, Neut % (Auto) 63.5, Lymph % (Auto) 27.5, [place] % (Auto) 7.0, Eos % (Auto) 1.1, Baso % (Auto) 0.6, Absolute Neuts (auto) 4.1, Absolute Lymphs (auto) 1.76, Nucleated RBC % 0 08/16/20 06:40: Sodium 153 H, Potassium 3.0 L, Chloride 123 H, Carbon Dioxide 24.0, Anion Gap 6, BUN 12, Creatinine 0.64, Estim Creat Clear Calc 43.18, Est GFR (MDRD) Af Amer 120, Est GFR (MDRD) Non-Af 99, BUN/Creatinine Ratio 18.9, Glucose 59 L, Calcium 8.0 L 08/16/20 06:40: Phosphorus 2.6, Magnesium 2.3 Current Medications Acetaminophen (Acetaminophen 325 Mg Tablet) 650 mg PO Q6H PRN PRN PRN Reason: Pain Score 1-10/Temp > 100.7 F Calamine/Phenol (Menthol/Lanolin/Calamine/Znox 113 Gm Tube) 1 applic TOPICAL BID [facility]; Protocol Last Admin: 08/16/20 11:04 Dose: 1 applicatio Documented by: Enoxaparin Sodium (Enoxaparin 40 Mg/0.4 Ml Syringe) 40 mg SC DAILY [facility] Last Admin: 08/16/20 11:01 Dose: 40 mg Documented by: Levetiracetam 500 mg/ Sodium (Chloride) 105 mls @ 400 mls/hr IV Q12 [facility] Last Admin: 08/16/20 13:39 Dose: 400 mls/hr Documented by: Ceftriaxone Sodium (Rocephin) 1 gm in 50 mls @ 100 mls/hr IV Q24@2200 [facility] Last Infusion: 08/15/20 22:57 Dose: Infused Documented by: Sodium Chloride () 1,000 mls @ 150 mls/hr IV .Q6H40M [facility] Last Admin: 08/16/20 12:10 Dose: 150 mls/hr Documented by: Lorazepam (Lorazepam 2 Mg/Ml Syringe) 2 mg IV X1 PRN PRN Reason: SEIZURES Ondansetron HCl (Ondansetron 4 Mg/2 Ml Vial) 4 mg IV Q8H PRN PRN PRN Reason: NAUSEA/VOMITING Sodium Chloride (0.9% Saline Lock 10 Ml Syringe) 10 - 40 ml IV UD PRN PRN Reason: SALINE FLUSH STROKE Vital Signs/Narrative: Vital Signs Temp Pulse Resp BP Pulse Ox 08/16/20 11:13 98.0 F 78 17 136/78 H 99 Medical Necessity - Tobacco Use Smoking Status: Never smoker Tobacco Use: Non-smoker Assessment/Plan All Active Problems (Last Reviewed 08/15/20 @ 02:[address] Barney Hamilton MD) Seizures (Acute) Hypernatremia (Acute) Hyperchloremia (Acute) Legal blindness (Acute) Dehydration (Acute) 1. Altered mental status secondary to hypernatremia and hyperchloremia which is secondary to dehydration and poor p.o. intake/KALANI -EEG is inconclusive, the recommendation is to obtain a 24-hour continuous EEG if there is no improvement in mental status however there appears to have been improvement in her mental status as she is responding to questions which she was not doing 24 hours ago -Continue with half-normal saline at 150 cc/h, will continue to monitor sodium it is improving -Creatinine has returned to baseline -We will replace potassium 2. History of seizures -No signs of continuous seizures -Continue with Keppra IV twice daily -She is supposed to be on gabapentin and Trileptal at home however currently unable to take p.o. -She will need to follow-up with her neurologist on discharge 3. UTI -Urine culture is no growth DVT: Lovenox Inpatient E&M: 86788 Subs Hosp L2
--- NOTE | 2020-08-16 15:40 | EKG12_ITS ---
Test Reason : Blood Pressure : / mmHG Vent. Rate : 066 BPM Atrial Rate : 066 BPM P-R Int : 140 ms QRS Dur : 062 ms QT Int : 414 ms P-R-T Axes : 098 049 031 degrees QTc Int : 434 ms Somatic / Motion Artifact Normal sinus rhythm Confirmed by SHEELA SPARROW, JYOTSNA ([id number]), health editor DESTIN WHITLEY ([id number]) on 08/21/2020 2:01:11 PM Referred By: ANTONI Confirmed By:JYOTSNA COKER MD
[2020-08-16] MEDS: Ceftriaxone 1 GM/50 ML BAG IV (21:30)
[2020-08-17] VITALS (9 sets, daily range): BP systolic 101–129; BP diastolic 50–70; PULSE 58–74; RESP 16–18; TEMP 36.4–36.8; O2SAT 95–98
[2020-08-17] MEDS: 0.45% Normal Saline 1,000 ML 150 ML IV (04:14)
[2020-08-17 08:17] LABS: Anion Gap 12 (5-15); BUN 10 mg/dL (7-18); BUN/Creat Ratio 18.1 RATIO (10-20); Calcium,Total 7.7 mg/dL (8.5-10.1); Chloride 104 mmol/L (98-107); Creatinine, Serum 0.55 mg/dL (0.55-1.02); EST Glomerular Filtration Rate 117 mL/min (>60); Est Glom Filt Rate - Afr Amer 142 mL/min (>60); Estimated Creatinine Clearance 43.18 ml/min; Glucose 36 mg/dL (74-106); Potassium 2.9 mmol/L (3.5-5.1); Sodium Level 138 mmol/L (136-145)
[2020-08-17] MEDS: Dextrose 50%-Water 25 GM/50 ML DISP.SYRIN IV (08:22)
[2020-08-17] MEDS: Menthol/Lanolin/Calamine/Znox 113 GM Tube 1 APPLIC TOPICAL ×2 (09:37→22:20)
[2020-08-17] MEDS: Enoxaparin 40 MG/0.4 ML Syringe SC (09:38)
[2020-08-17 09:46] LABS: Bedside Glucose 123 mg/dL (70-110)
[2020-08-17] MEDS: 0.9% Saline Lock 10 ML Syringe IV (10:58)
[2020-08-17 11:21] LABS: Absolute Lymphocyte Count 1.98 X10^3/uL (0.83-4.51); Basophil# 0.02 X10^3/uL; Basophil% 0.4 % (0-1); Eosinophil# 0.08 X10^3/uL; Eosinophils% 1.4 % (0-5); Hematocrit 37.9 % (37-47); Hemoglobin 12.8 g/dL (12.0-15.0); Lymphocyte # 1.98 X10^3/ul (4.0); Lymphocyte % 35.6 % (19-41); Mean Corp Hgb Conc 33.8 g/dL (32-36); Mean Corpuscular Hgb 28.5 pg (27.0-32.0); Mean Corpuscular Volume 84.4 fL (81-99); Monocyte# 0.47 X10^3/uL; Monocyte% 8.5 % (0-10); NRBC Flagged by Analyzer 1.1 % (0-5); Neutrophil % 53.9 % (47-70); Platelet Count 196 K/mm3 (150-450); RBC Distribution Width CV 12.4 % (11.6-14.6); RBC Distribution Width SD 37.6 fl (35.1-43.9); Red Blood Count 4.49 M/mm3 (4.2-5.4); White Blood Count 5.6 K/mm3 (4.4-11.0)
[2020-08-17] MEDS: Potassium Chloride 10mEq/100mL 10 MEQ/100 ML IV.SOLN. 100 MEQ IV BOLUS (12:04)
[2020-08-17] MEDS: Potassium Chloride 10mEq/100mL 10 MEQ/100 ML IV.SOLN. 2 MEQ IV BOLUS (13:46)
--- NOTE | 2020-08-17 14:54 | PCM.PN.HOSP ---
Patient Problems: Active and Suspected Problems (Last Reviewed 08/15/20 @ 02:[address] Barney Hamilton MD) Seizures (Acute) Hypernatremia (Acute) Hyperchloremia (Acute) Legal blindness (Acute) Dehydration (Acute) Subjective: She is verbal and responds appropriately to questions today Vitals/I&O's: Vital Signs Temp Pulse Resp BP Pulse Ox 97.5 F L 67 16 126/70 H 96 08/17/20 09:22 08/17/20 09:22 08/17/20 09:22 08/17/20 09:22 08/17/20 09:22 Oxygen Delivery Method Room Air Weight: 113 lb 15.664 oz Body Mass Index (BMI) 20.8 Intake and Output for Last 24 Hours 08/15/20 08/16/20 08/17/20 23:59 23:59 23:59 Intake Total 5470.0 / 5470.0 2595.0 / 2595.0 1940 / 1940 Output Total 325 / 355 1680 / 2730 3225 / 3225 Balance 5145.0 / 5115.0 915.0 / -135.0 -1285 / -1285 General: Alert, cooperative, No apparent distress HEENT: Atraumatic, EOMI, Normocephalic Oral: Moist Mucosa Neck: Supple, No JVD Lungs: Clear to auscultation, Normal air movement, No rhonchi, No wheeze, No rales Cardiovascular: Regular rate, Regular Rhythm, Normal S1, Normal S2, No murmurs Abdomen: Soft, Non Tender, Non-Distended, No Hepato-splenomegaly Extremities: No edema, Capillary Refill Less than 3 Seconds Skin: No rashes, No breakdown Neurological: Deep Tendon Reflexes 2+/4 and Symmetrical, Neuro grossly intact, Sensory exam intact to light touch and pain Psych/Mental Status: Flat Affect Microbiology Past 72 Hours 08/15/20 02:10 Urine, Catheterized Urine Culture - Final Culture exhibits no growth. Laboratory Results 08/17/20 07:36: WBC Cancelled, Corrected WBC Cancelled, RBC Cancelled, Hgb Cancelled, Hct Cancelled, MCV Cancelled, MCH Cancelled, MCHC Cancelled, RDW Std Deviation Cancelled, RDW Coeff of Jose Cancelled, Plt Count Cancelled, MPV Cancelled, Immature Gran % (Auto) Cancelled, Neut % (Auto) Cancelled, Lymph % (Auto) Cancelled, [place] % (Auto) Cancelled, Eos % (Auto) Cancelled, Baso % (Auto) Cancelled, Absolute Neuts (auto) Cancelled, Absolute Lymphs (auto) Cancelled, Total Counted Cancelled, Neutrophils % (Manual) Cancelled, Band Neutrophils % Cancelled, Lymphocytes % (Manual) Cancelled, Monocytes % (Manual) Cancelled, Eosinophils % (Manual) Cancelled, Basophils % (Manual) Cancelled, Metamyelocytes % Cancelled, Myelocytes % Cancelled, Promyelocytes % Cancelled, Blast Cells % Cancelled, Plasma Cell % (Manual) Cancelled, Other Cells % Cancelled, Nucleated RBC % Cancelled, Nucleated RBCs/100 WBC Cancelled, Differential Comment Cancelled, Diff Path Review Cancelled, Hypersegmented Neuts Cancelled, Atypical Lymphocytes Cancelled, Reactive Lymphocytes Cancelled, Smudge Cells Cancelled, Toxic Granulation Cancelled, Toxic Vacuolation Cancelled, Dohle Bodies Cancelled, José Miguel Rods Cancelled, Platelet Estimate Cancelled, Plt Morphology Comment Cancelled, RBC Morphology Cancelled, Polychromasia Cancelled, Hypochromasia Cancelled, Poikilocytosis Cancelled, Basophilic Stippling Cancelled, Anisocytosis Cancelled, Microcytosis Cancelled, Macrocytosis Cancelled, Spherocytes Cancelled, Sickle Cells Cancelled, Target Cells Cancelled, Tear Drop Cells Cancelled, Ovalocytes Cancelled, Stomatocytes Cancelled, Lopez-[place] Bodies Cancelled, [place] Cells Cancelled, Bite Cells Cancelled, Crenated Cell Cancelled, Acanthocytes (Spur) Cancelled, Rouleaux Cancelled, Schistocytes Cancelled 08/17/20 07:36: Sodium 138, Potassium 2.9 L, Chloride 104, Carbon Dioxide 22.0, Anion Gap 12, BUN 10, Creatinine 0.55, Estim Creat Clear Calc 43.18, Est GFR (MDRD) Af Amer 142, Est GFR (MDRD) Non-Af 117, BUN/Creatinine Ratio 18.1, Glucose 36 L*, Calcium 7.7 L 08/17/20 09:17: POC Glucose 123 H 08/17/20 11:12: WBC 5.6, RBC 4.49, Hgb 12.8, Hct 37.9, MCV 84.4 D, MCH 28.5, MCHC 33.8 D, RDW Std Deviation 37.6, RDW Coeff of Jose 12.4, Plt Count 196, MPV 10.0, Immature Gran % (Auto) 0.200, Neut % (Auto) 53.9, Lymph % (Auto) 35.6, [place] % (Auto) 8.5, Eos % (Auto) 1.4, Baso % (Auto) 0.4, Absolute Neuts (auto) 3.0, Absolute Lymphs (auto) 1.98, Nucleated RBC % 1.1 Current Medications Acetaminophen (Acetaminophen 325 Mg Tablet) 650 mg PO Q6H PRN PRN PRN Reason: Pain Score 1-10/Temp > 100.7 F Calamine/Phenol (Menthol/Lanolin/Calamine/Znox 113 Gm Tube) 1 applic TOPICAL BID [facility]; Protocol Last Admin: 08/17/20 09:37 Dose: 1 applicatio Documented by: Enoxaparin Sodium (Enoxaparin 40 Mg/0.4 Ml Syringe) 40 mg SC DAILY [facility] Last Admin: 08/17/20 09:38 Dose: 40 mg Documented by: Levetiracetam 500 mg/ Sodium (Chloride) 105 mls @ 400 mls/hr IV Q12 [facility] Last Infusion: 08/17/20 11:30 Dose: Infused Documented by: Lorazepam (Lorazepam 2 Mg/Ml Syringe) 2 mg IV X1 PRN PRN Reason: SEIZURES Ondansetron HCl (Ondansetron 4 Mg/2 Ml Vial) 4 mg IV Q8H PRN PRN PRN Reason: NAUSEA/VOMITING Sodium Chloride (0.9% Saline Lock 10 Ml Syringe) 10 - 40 ml IV UD PRN PRN Reason: SALINE FLUSH Last Admin: 08/17/20 10:58 Dose: 10 ml Documented by: Medical Necessity - Tobacco Use Smoking Status: Never smoker Tobacco Use: Non-smoker Assessment/Plan All Active Problems (Last Reviewed 08/15/20 @ 02:[address] Barney Hamilton MD) Seizures (Acute) Hypernatremia (Acute) Hyperchloremia (Acute) Legal blindness (Acute) Dehydration (Acute) 1. Altered mental status secondary to hypernatremia and hyperchloremia which is secondary to dehydration and poor p.o. intake/KALANI -EEG is inconclusive, the recommendation is to obtain a 24-hour continuous EEG if there is no improvement in mental status however there appears to have been improvement in her mental status as she is responding to questions which she was not doing 24 hours ago -Sodium is now normal will discontinue and an attempt to get her to eat if necessary can provide her with IV fluids with D5. -Creatinine has returned to baseline -We will replace potassium -PT/OT for evaluation may need placement 2. History of seizures -No signs of continuous seizures -Continue with Keppra IV twice daily -She is supposed to be on gabapentin and Trileptal at home however currently unable to take p.o. -She will need to follow-up with her neurologist on discharge 3. Severe protein calorie malnutrition -Consult nutritional services DVT: Jennifer Inpatient E&M: [id number] Subs Hosp L2
--- NOTE | 2020-08-17 20:25 | PCM.PN.BLA ---
Progress Note With IV infiltrate and rounding MD recommendations that ok to leave IV out will change keppra from IV to po. On keppra she has not had any more seizures. STROKE Vital Signs/Narrative: Vital Signs Pulse 08/17/20 18:53 68
[2020-08-17] MEDS: levETIRAcetam 500 MG Tablet PO (22:14)
[2020-08-18] VITALS (7 sets, daily range): BP systolic 113–137; BP diastolic 61–75; PULSE 55–80; RESP 14–17; TEMP 36.4–36.6; O2SAT 95–97
[2020-08-18 07:26] LABS: Anion Gap 6 (5-15); BUN 12 mg/dL (7-18); Calcium,Total 8.1 mg/dL (8.5-10.1); Chloride 107 mmol/L (98-107); Creatinine, Serum 0.63 mg/dL (0.55-1.02); EST Glomerular Filtration Rate 100 mL/min (>60); Est Glom Filt Rate - Afr Amer 121 mL/min (>60); Estimated Creatinine Clearance 43.18 ml/min; Glucose 91 mg/dL (74-106); Potassium 3.6 mmol/L (3.5-5.1); Sodium Level 138 mmol/L (136-145)
[2020-08-18] MEDS: Menthol/Lanolin/Calamine/Znox 113 GM Tube 1 APPLIC TOPICAL (08:33)
[2020-08-18] MEDS: Enoxaparin 40 MG/0.4 ML Syringe SC (08:33)
[2020-08-18] MEDS: levETIRAcetam 500 MG Tablet PO (08:33)
--- NOTE | 2020-08-18 11:29 | DCINST_ITS ---
- Discharge Diagnoses Current Active Problems: Current Active and Chronic Problems (Last Reviewed 08/15/20 @ 02:[address] Barney Hamilton MD) Seizures (Acute) Hypernatremia (Acute) Hyperchloremia (Acute) Legal blindness (Acute) Dehydration (Acute) You will use the following diet at home:: Regular Your food should be the consistency of: Regular Your liquids should be the consistency of: Regular/Thin Discharge Activity: Return to Normal Activity Call your doctor if you observe: Fever of 101 or Higher, Shortness of breath, Dizziness, Fainting spells, Swelling in the ankles, Chest pain, Increased palpitations (irregular heartbeat) Additional Instructions: Follow-up with your PCP and obtain a BMP to monitor your sodium, potassium and kidney function Allergies/Adverse Reactions: Allergies bee venom protein (honey bee) Allergy (Verified 01/20/20 22:20) Anaphylaxis Medications to take at Discharge Gabapentin [Neurontin] 300 mg PO BIDCM 01/20/20 Oxcarbazepine [Trileptal Suspension] 300 mg PO QHS 08/14/20 Primary Care Physician: Héctor Bosch Chi, MD [Primary Care Provider] - Please follow up with your Primary Care Physician in: 3-5 days Test Results: Test results from this visit will be discussed in further detail at your follow- up appointment, if applicable. Please Follow Up With: Neurology When: 2-4 weeks
--- NOTE | 2020-08-18 15:13 | DS.PCM_ITS ---
Discharge Date and Diagnosis - Problem List Patient Problems: Active and Suspected Problems (Last Reviewed 08/15/20 @ 02:[address] Barney Hamilton MD) Seizures (Acute) Hypernatremia (Acute) Hyperchloremia (Acute) Legal blindness (Acute) Dehydration (Acute) Date of Admission: 08/15/20 Date of Discharge: 08/18/20 - Primary Discharge Diagnosis Acute Problems: Active Problems (Last Reviewed 08/15/20 @ 02:[address] Barney Hamilton MD) Seizures (Acute) Hypernatremia (Acute) Hyperchloremia (Acute) Legal blindness (Acute) Dehydration (Acute) Hospital Course and Treatment Imaging Results: Clinical Impression(s) from Imaging Studies Brain CT 08/15/20 23:05 IMPRESSION: No acute intracranial abnormality. Individualized dose optimization techniques were used for this CT. 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 Patient lives with a caregiver. On day of presentation patient was found lying on the floor. She was curled up and was mumbling. Her caregiver reports that patient had a hand contracted backwards. Associated with her symptoms is vomiting. In the last 4 to 5 days patient has been incontinent of urine. She has not been eating much. Hospital Course: 1. Altered mental status secondary to hypernatremia and hyperchloremia which is secondary to dehydration and poor p.o. intake/KALANI -EEG is inconclusive without any overt signs of epilepsy, the recommendation is to obtain a 24-hour continuous EEG if there is no improvement in mental status however there is been significant improvement in her mental status and she is responding appropriately at all times to questions -Her hypernatremia and hyperchloremia both resolved and she was able to eat well on her own -Creatinine has returned to baseline -Potassium stable -PT/OT felt that she was minimal assist and she does have a 24-hour licensing court magistrate at home -I discussed with her the plan for discharge today and she expressed understanding of the risk and benefits of going home and would like to go home today. She is tolerating a diet and her sodium and potassium have remained stable. She will need to follow-up with her neurologist as an outpatient as well as her PCP in 3 to 5 days to evaluate her kidney function as well as her sodium and potassium. 2. History of seizures -No signs of continuous seizures -Continue with Keppra IV twice daily -Since she is able to take p.o. she can resume her home gabapentin and Trileptal -She will need to follow-up with her neurologist on discharge 3. Severe protein calorie malnutrition -Consult nutritional services Patient Problems: Active and Suspected Problems (Last Reviewed 08/15/20 @ 02:[address] Barney Hamilton MD) Seizures (Acute) Hypernatremia (Acute) Hyperchloremia (Acute) Legal blindness (Acute) Dehydration (Acute) - Physical Exam Vitals/I&O's: Vital Signs Temp Pulse Resp BP Pulse Ox 97.8 F 70 17 113/61 97 08/18/20 13:00 08/18/20 13:00 08/18/20 13:00 08/18/20 13:00 08/18/20 13:00 Oxygen Delivery Method Room Air Weight: 113 lb 15.664 oz Body Mass Index (BMI) 20.8 Intake and Output for Last 24 Hours 08/16/20 08/17/20 08/18/20 23:59 23:59 23:59 Intake Total 2595.0 / 2595.0 2342.3 / 2342.3 360 / 360 Output Total 1680 / 2730 4325 / 4325 225 / 225 Balance 915.0 / -135.0 -1982.7 / -1982.7 135 / 135 General: Alert, cooperative, No apparent distress HEENT: Atraumatic, EOMI, Normocephalic Oral: Moist Mucosa Neck: Supple, No JVD Lungs: Clear to auscultation, Normal air movement, No rhonchi, No wheeze, No rales Cardiovascular: Regular rate, Regular Rhythm, Normal S1, Normal S2, No murmurs Abdomen: Soft, Non Tender, Non-Distended, No Hepato-splenomegaly Extremities: No edema, Capillary Refill Less than 3 Seconds Skin: No rashes, No breakdown Neurological: Neuro grossly intact, Sensory exam intact to light touch and pain Psych/Mental Status: Flat Affect Microbiology Past 72 Hours 08/15/20 02:10 Urine, Catheterized Urine Culture - Final Culture exhibits no growth. Laboratory Results 08/18/20 06:10: Sodium 138, Potassium 3.6, Chloride 107, Carbon Dioxide 25.0, Anion Gap 6, BUN 12, Creatinine 0.63, Estim Creat Clear Calc 43.18, Est GFR (MDRD) Af Amer 121, Est GFR (MDRD) Non-Af 100, BUN/Creatinine Ratio 19.0, Glucose 91, Calcium 8.1 L Discharge Activity: Return to Normal Activity Call your doctor if you observe: Fever of 101 or Higher, Shortness of breath, Dizziness, Fainting spells, Swelling in the ankles, Chest pain, Increased palpitations (irregular heartbeat) Home Medications: Medications to take at Discharge Gabapentin [Neurontin] 300 mg PO BIDCM 01/20/20 Oxcarbazepine [Trileptal Suspension] 300 mg PO QHS 08/14/20 Primary Care Physician: Héctor Bosch Chi, MD [Primary Care Provider] - Please follow up with your Primary Care Physician in: 3-5 days Please Follow Up With: Neurology When: 2-4 weeks Disposition: Home Minutes spent on discharge:: 35 Patient Condition:: Stable Medical Necessity - Tobacco Use Smoking Status: Never smoker Tobacco Use: Non-smoker Meaningful Use Info Meaningful Use Diagnoses (Choose all that apply): None applicable Inpatient E&M: 51172 Disch Hosp
== END 2020-08-18 14:00 | disposition home or self-care (01) | DRG 640 ==
LOC: ED 21:56 → PCU 08-15 00:07
PROVIDERS: Admitting Provider Hospitalist; Emergency Provider Emergency Medicine; PCP Family Medicine Geriatric Medicine; Visit Provider Family Medicine
DX: E86.0 Dehydration (principal); E43 Unspecified severe protein-calorie malnutrition; G93.40 Encephalopathy, unspecified; N17.9 Acute kidney failure, unspecified; N30.00 Acute cystitis without hematuria; G40.909 Epilepsy, unspecified, not intractable, without status epilepticus; E87.0 Hyperosmolality and hypernatremia; E87.8 Other disorders of electrolyte and fluid balance, not elsewhere classified; H54.8 Legal blindness, as defined in USA; R32 Unspecified urinary incontinence; F70 Mild intellectual disabilities; Z68.20 Body mass index [BMI] 20.0-20.9, adult; L89.152 Pressure ulcer of sacral region, stage 2
CPT/HCPCS: 36415; 70450; 80048; 81001; 82550; 82962; 83735; 84100; 84146; 85025; 87086; 93005; 95819; 97162; 97166; 97803; 99285; J7030; J7040; A4216; J2405

== ENCOUNTER → 2021-03-26 15:25 | Outpatient (CLI) | payer MEDICARE, MEDICAID, SELFPAY ==
[2020-11-21 10:30] VITALS: BMI 25.3
[2021-03-27 08:55] LABS: Vitamin D,25 Hydroxy 11.1 ng/mL
[2021-03-30 08:17] LABS: Trileptal-Oxcarbazepine 10 ug/mL (10-35)
== END ==
PROVIDERS: PCP Family Medicine Geriatric Medicine; Referring Provider Psychiatry & Neurology Neurology; Visit Provider Psychiatry & Neurology Neurology
DX: G40.909 Epilepsy, unspecified, not intractable, without status epilepticus (principal); E55.9 Vitamin D deficiency, unspecified
CPT/HCPCS: 36415; 82306; 82542

== ENCOUNTER → 2021-05-06 08:37 | Outpatient (CLI) | payer MEDICARE, MEDICAID, SELFPAY ==
[2020-11-21 10:30] VITALS: BMI 25.3
[2021-05-06 10:20] LABS: Vitamin D,25 Hydroxy 41.5 ng/mL
== END ==
PROVIDERS: PCP Family Medicine Geriatric Medicine; Referring Provider Nurse Practitioner Family; Visit Provider Nurse Practitioner Family
DX: E55.9 Vitamin D deficiency, unspecified (principal)
CPT/HCPCS: 36415; 82306

== ENCOUNTER → 2021-08-14 11:58 | Outpatient (CLI) | payer MEDICARE, MEDICAID, SELFPAY ==
[2021-08-14 12:22] LABS: Absolute Lymphocyte Count 2.56 X10^3/uL (0.83-4.51); Absolute Neutrophil Count 4.2 X10^3/uL (2.0-7.7); Basophil# 0.06 X10^3/uL; Basophil% 0.8 % (0-1); Eosinophil# 0.12 X10^3/uL; Eosinophils% 1.6 % (0-5); Hematocrit 42.7 % (37-47); Hemoglobin 14.1 g/dL (12.0-15.0); Lymphocyte # 2.56 X10^3/ul (0.83-4.51); Lymphocyte % 33.6 % (19-41); Mean Corpuscular Hgb 29.9 pg (27.0-32.0); Mean Corpuscular Volume 90.5 fL (81-99); Mean Platelet Vol. 9.3 fl (6.2-12.0); Monocyte# 0.68 X10^3/uL; Monocyte% 8.9 % (0-10); NRBC Flagged by Analyzer 0 % (0-5); Platelet Count 354 K/mm3 (150-450); RBC Distribution Width CV 12.8 % (11.6-14.6); RBC Distribution Width SD 42.2 fl (35.1-43.9); Red Blood Count 4.72 M/mm3 (4.2-5.4); White Blood Count 7.6 K/mm3 (4.4-11.0)
[2021-08-14 13:03] LABS: Vitamin D,25 Hydroxy 24.4 ng/mL
[2021-08-14 13:09] LABS: ALB/GLOB Ratio 0.8 RATIO (0.9-2.4); AST(SGOT) 16 U/L (15-37); Alanine Aminotransfer ALT/SGPT 15 U/L (13-56); Albumin, Serum 3.4 g/dL (3.2-5.0); Alkaline Phosphatase 107 U/L (45-117); Anion Gap 7 (5-15); BUN 13 mg/dL (7-18); Calcium,Total 8.8 mg/dL (8.5-10.1); Chloride 102 mmol/L (98-107); Creatinine, Serum 0.72 mg/dL (0.55-1.02); EST Glomerular Filtration Rate 85 mL/min (>60); Est Glom Filt Rate - Afr Amer 103 mL/min (>60); Globulin 4.3 g/dL (2.2-4.2); Glucose 53 mg/dL (74-106); Potassium 3.5 mmol/L (3.5-5.1); Protein, Total 7.7 g/dL (6.4-8.2); Sodium Level 136 mmol/L (136-145)
== END ==
PROVIDERS: PCP Family Medicine Geriatric Medicine; Visit Provider Family Medicine Geriatric Medicine
DX: E55.9 Vitamin D deficiency, unspecified (principal); R53.83 Other fatigue
CPT/HCPCS: 36415; 80053; 82306; 84443; 85025

== ENCOUNTER 2021-11-22 12:19 | Emergency (ER) | payer MEDICARE, MEDICAID, SELFPAY ==
[2021-11-22 12:20] VITALS: BP 112/72; PULSE 70; RESP 16; TEMP 36.6; O2SAT 100; BMI 24.7
--- NOTE | 2021-11-22 13:05 | EDS_ITS ---
HPI History of Present Illness Chief Complaint: Seizure Informant: patient, legal guardian and EMS Narrative Narrative: Patient is a 66-year-old female with history of developmental delay, seizures and blindness presenting with seizure activity. Per report from [facility] facility patient had an episode lasting 2 to 3 minutes of hand clenching, grunting and shaking. Afterwards she had decreased responsiveness and to be postictal. She had bleeding coming from her mouth. Staff that we spoke to states that they were worried she had a seizure and it seemed worse than her normal seizures but cannot tell us what her normal seizures are like. Patient currently has no complaints. She does not recall the event. She is not sure why she is in the emergency room. No report of any recent medication changes, falls or head injuries. [facility] Medical History Blindness of both eyes History of small bowel obstruction Hyperlipidemia Mild mental handicap Partial symptomatic epilepsy with complex partial seizures, not intractable, without status epilepticus Seizure disorder Vitamin D deficiency Home Medications gabapentin 300 mg PO BIDCM 01/20/20 [History Last Taken 08/13/20] simvastatin 20 mg tablet 20 mg PO DAILY 11/20/20 [History Last Taken Unknown] ergocalciferol (vitamin D2) 1,250 mcg (50,000 unit) capsule 1,250 mcg PO QMONTH #3 cap 05/06/21 [Rx Last Taken Unknown] oxcarbazepine 300 mg/5 mL (60 mg/mL) oral suspension See Rx Instructions .ROUTE .COMPLEX #300 ml 09/25/21 [Rx Last Taken Unknown] potassium chloride 20 meq PO DAILY #7 tab 11/22/21 [Rx Last Taken Unknown] Allergy/AdvReac Type Severity Reaction Status Date / Time bee venom protein (honey bee) Allergy Anaphylaxis Verified 05/06/21 08:08 Family History Mother Heart disease CHF Father Heart disease CHF Surgical History History of left hip replacement Social History Smoking Status: Never smoker Electronic Cigarette Use: not used second hand exposure: Yes alcohol intake: never substance use type: does not use ROS ROS ED Review of Systems ROS Unobtainable: due to mental condition Neurologic Neurologic: Reports other Details: Seizure activity Psychiatric Psychiatric: Reports other EXAM Physical Exam Const Vital Signs: 11/22/21 12:20 11/22/21 14:28 Temperature 97.8 F Temperature Source Temporal Pulse Rate 70 70 Respiratory Rate 16 16 Blood Pressure 112/72 110/68 Blood Pressure Mean 85 82 Pulse Ox 100 96 Oxygen Delivery Method Room Air Room Air Positive well nourished and well developed General Appearance ED: well developed HEENT Reports moist mucous membranes HEENT Narrative: Nonbleeding laceration to the left lateral tongue Negative for trauma or tenderness Eyes Eyes Narrative: Cloudy cornea consistent with patient's blindness Neck supple and no JVD General: Negative for tenderness Chest Wall inspection of chest normal Resp normal respiratory effort and clear to auscultation bilaterally Cardio regular rate, regular rhythm and no murmurs GI normal to inspection, nondistended, normoactive bowel sounds and non-tender Palpation: soft Neuro Neuro Narrative: Patient is at her baseline per report. No focal deficits appreciated. Is sitting with her legs flexed and hunched over. Sensorium / Orientation: alert and orientation impaired Motor Exam: Negative for general weakness Psych mental status grossly normal Skin no rashes or lesions noted and no wounds MDM MDM MDM Narrative Medical decision making narrative: Patient evaluated after breakthrough seizure. She does have a history of seizures. Patient appears to be returning to her baseline. She did bite her tongue. Seizure resolved spontaneously only last for 2 to 3 minutes. She currently is not any focal neurologic deficits. I do not think repeat head imaging is indicated. In her age and history of elective abnormalities I did check basic labs. CBC is normal. BMP is remarkable for hypokalemia. Potassium is 2.9. Magnesium added on which is normal. Patient is given potassium supplementation. Urinalysis is still pending. Patient will be discharged home with prescription for potassium instructions for repeat BMP in 1 week to recheck her potassium level. Patient will be signed out to oncoming provider pending urinalysis results. If she does require treatment this will be added on. Lab Data Attestation: I reviewed the patient's lab results. Labs: Laboratory Results - last 24 hr 11/22/21 11/22/21 11/22/21 13:04 13:04 13:04 WBC 5.7 RBC 4.76 Hgb 13.9 Hct 42.3 MCV 88.9 MCH 29.2 MCHC 32.9 RDW Std Deviation 41.1 RDW Coeff of Jose 12.6 Plt Count 290 MPV 9.3 Immature Gran % (Auto) 0.200 Neut % (Auto) 66.7 Lymph % (Auto) 24.3 [place] % (Auto) 6.6 Eos % (Auto) 1.7 Baso % (Auto) 0.5 Absolute Neuts (auto) 3.8 Absolute Lymphs (auto) 1.39 Nucleated RBC % 0 Sodium 141 Potassium 2.9 L Chloride 106 Carbon Dioxide 29.0 Anion Gap 6 BUN 7 Creatinine 0.77 Estim Creat Clear Calc 44.54 Est GFR (MDRD) Af Amer 96 Est GFR (MDRD) Non-Af 79 BUN/Creatinine Ratio 9.1 L Glucose 88 Calcium 8.8 Magnesium 2.5 Discharge Plan Triage Chief Complaint: Seizure ED Provider: Roberta Tripathi Dx/Rx/DC Orders Clinical Impression: Breakthrough seizure, Acute hypokalemia Instructions: ED Hypokalemia, ED Seizure, Recurrent (Adult) Prescriptions: New potassium chloride 20 mEq tablet extended release 20 meq PO DAILY Qty: 7 RF: 0 No Action simvastatin 20 mg tablet 20 mg PO DAILY RF: 0 gabapentin 300 MG capsule 300 mg PO BIDCM RF: 0 ergocalciferol (vitamin D2) [Vitamin D2] 1,250 mcg (50,000 unit) capsule 1,250 mcg PO QMONTH Qty: 3 RF: 0 oxcarbazepine 300 mg/5 mL (60 mg/mL) suspension See Rx Instructions .ROUTE .COMPLEX Qty: 300 RF: 2 Primary Care Provider: Héctor Bosch Chi Referrals: Héctor Bosch Chi, MD [Primary Care Provider] - Activity Restrictions/Additional Instructions: Please follow-up in 5 to 7 days for repeat blood work to recheck your potassium level. It was 2.9 today. You have been prescribed potassium supplementation. Disposition Disposition: Home, Self Care Discharge Date/Time: 11/22/21 18:03
[2021-11-22 13:12] LABS: Absolute Lymphocyte Count 1.39 X10^3/uL (0.83-4.51); Absolute Neutrophil Count 3.8 X10^3/uL (2.0-7.7); Basophil# 0.03 X10^3/uL; Basophil% 0.5 % (0-1); Eosinophils% 1.7 % (0-5); Hematocrit 42.3 % (37-47); Hemoglobin 13.9 g/dL (12.0-15.0); Lymphocyte # 1.39 X10^3/ul (0.83-4.51); Lymphocyte % 24.3 % (19-41); Mean Corp Hgb Conc 32.9 g/dL (32-36); Mean Corpuscular Hgb 29.2 pg (27.0-32.0); Mean Corpuscular Volume 88.9 fL (81-99); Mean Platelet Vol. 9.3 fl (6.2-12.0); Monocyte# 0.38 X10^3/uL; Monocyte% 6.6 % (0-10); NRBC Flagged by Analyzer 0 % (0-5); Neutrophil # 3.82 X10^3/uL (2.7-7.7); Neutrophil % 66.7 % (47-70); Platelet Count 290 K/mm3 (150-450); RBC Distribution Width CV 12.6 % (11.6-14.6); RBC Distribution Width SD 41.1 fl (35.1-43.9); Red Blood Count 4.76 M/mm3 (4.2-5.4); White Blood Count 5.7 K/mm3 (4.4-11.0)
[2021-11-22 13:35] LABS: Anion Gap 6 (5-15); BUN 7 mg/dL (7-18); BUN/Creat Ratio 9.1 RATIO (10-20); Calcium,Total 8.8 mg/dL (8.5-10.1); Chloride 106 mmol/L (98-107); Creatinine, Serum 0.77 mg/dL (0.55-1.02); EST Glomerular Filtration Rate 79 mL/min (>60); Est Glom Filt Rate - Afr Amer 96 mL/min (>60); Estimated Creatinine Clearance 44.54 ml/min; Glucose 88 mg/dL (74-106); Potassium 2.9 mmol/L (3.5-5.1); Sodium Level 141 mmol/L (136-145)
[2021-11-22 14:20] LABS: Magnesium 2.5 mg/dL (1.6-2.6)
[2021-11-22] MEDS: Potassium Chloride Oral Tablet 20 MEQ 40 MEQ PO (14:22)
[2021-11-22 14:28] VITALS: BP 110/68; PULSE 70; RESP 16; O2SAT 96
--- NOTE | 2021-11-22 14:45 | ED.RN ---
spole with home care manager. Marilee, update given at this time.
[2021-11-22] MEDS: Potassium Chloride 10mEq/100mL 10 MEQ/100 ML IV.SOLN. 100 MEQ IV BOLUS ×2 (15:06→16:32)
[2021-11-22 16:20] LABS: Bacteria 0 SEEN /hpf (None Seen); Mucous, Urine 0 SEEN /hpf (<or=2+); Red Blood Cells-Urine 0 SEEN /hpf (0-5); Squamous Epithelial Cells - UA 0 SEEN /hpf (5-10); White Blood Cells 0 SEEN /hpf (0-5)
[2021-11-22 16:21] LABS: Color, Urine Yellow (Yellow); Glucose, Dipstick Normal (Normal); Ketone-Dipstick Negative (Negative); Leukocyte Esterase-Dipstick Negative /ul (Negative); Nitrite-Dipstick Negative (Negative); Occult Blood-Urine Negative /ul (Negative); Protein-Dipstick Negative (Negative); Specific Gravity, Urine 1.015 (1.002-1.030); Urine Bilirubin Dipstick Negative (Negative); Urine Clarity Clear (Clear); Urine Urobilinogen Normal (Normal)
[2021-11-22 16:33] VITALS: BP 111/70; PULSE 74; RESP 14; O2SAT 99
--- NOTE | 2021-11-22 16:46 | ED.RN ---
attempted to call sue to update and discuss dc and transport home. no answer or voicemail option at this time.
--- NOTE | 2021-11-22 17:25 | ED.RN ---
pt resting with eyes closed. little blood on chin. nurse woke pt. some disorientation, appears post ectial and bit tongue. within few minutes pt responding better some restless. dr camilo updated.
--- NOTE | 2021-11-22 17:35 | ED.RN ---
contacted guardian. updated on pt status/care. guardian to arrange for transport home
--- NOTE | 2021-11-22 17:45 | ED.RN ---
pt found up in room. iv pulled. potassium infusion was complete. assisted pt to bathroom. pt cleaned up. sitting up in chair waiting on ride.
--- NOTE | 2021-11-22 18:00 | ED.RN ---
reviewed dc, potasium and followup with jacinto guardian. child care development specialist sue also aware of potassium replacement. sue on way to get pt.
== END 2021-11-22 18:03 | disposition home or self-care (01) ==
PROVIDERS: Emergency Provider Emergency Medicine; PCP Family Medicine Geriatric Medicine; Visit Provider Emergency Medicine
DX: R56.9 Unspecified convulsions (principal); E87.6 Hypokalemia; E78.5 Hyperlipidemia, unspecified; E55.9 Vitamin D deficiency, unspecified; Z79.899 Other long term (current) drug therapy
CPT/HCPCS: 80048; 81001; 83735; 85025; 96365; 99282; J7030; A4216

== ENCOUNTER 2021-12-01 09:56 | Outpatient (CLI) | payer MEDICARE, MEDICAID, SELFPAY ==
[2021-12-01 12:33] LABS: Anion Gap 5 (5-15); BUN 11 mg/dL (7-18); BUN/Creat Ratio 14.9 RATIO (10-20); Calcium,Total 9.6 mg/dL (8.5-10.1); Chloride 105 mmol/L (98-107); Creatinine, Serum 0.74 mg/dL (0.55-1.02); EST Glomerular Filtration Rate 83 mL/min (>60); Est Glom Filt Rate - Afr Amer 101 mL/min (>60); Glucose 77 mg/dL (74-106); Potassium 3.8 mmol/L (3.5-5.1); Sodium Level 139 mmol/L (136-145)
[2021-12-05 15:19] LABS: Trileptal-Oxcarbazepine 8 ug/mL (10-35)
== END 2021-12-01 23:59 | disposition home or self-care (01) ==
PROVIDERS: PCP Family Medicine Geriatric Medicine; Referring Provider Nurse Practitioner Family; Visit Provider Nurse Practitioner Family
DX: R56.9 Unspecified convulsions (principal); E87.6 Hypokalemia
CPT/HCPCS: 36415; 80048; 82542

== ENCOUNTER 2022-04-21 13:22 | Emergency (ER) | payer MEDICARE, MEDICAID, SELFPAY ==
[2022-04-21 13:23] VITALS: BP 103/46; PULSE 46; PULSE 50; RESP 14; TEMP 36.4; O2SAT 95; O2SAT 96; BMI 20.9
--- NOTE | 2022-04-21 13:32 | EKG12_ITS ---
Test Reason : Nausea/Vomiting Blood Pressure : / mmHG Vent. Rate : 046 BPM Atrial Rate : 046 BPM P-R Int : 160 ms QRS Dur : 076 ms QT Int : 478 ms P-R-T Axes : 031 017 044 degrees QTc Int : 418 ms Sinus bradycardia Otherwise normal ECG Confirmed by SHEELA SPARROW, JYOTSNA ([id number]), subeditor LUCINDA PEREIRA ([id number]) on 04/24/2022 8:01:24 AM Referred By: Dario Confirmed By:JYOTSNA COKER MD
--- NOTE | 2022-04-21 13:33 | EX.ED.DYSGE1 ---
HPI History of Present Illness Chief Complaint: Nausea/Vomiting Detail of Chief Complaint: Confusion, nausea and vomiting, instability and shakes Informant: family (Sister who is caring for her since electrical sign servicer is on vacation) Onset/Context/Timing Onset: Today Context: Sudden Onset Timing: - (Unable to determine) Quality: HPI narrative Location: Occurred at patient's residence Worsened by: Standing Relieved by: Unknown Associated Symptoms Associated Symptoms: Shakes Narrative Narrative: Patient is a 66-year-old woman with MRDD, cognitive ability of a 3-year-old, who was brought to the emergency department because she does not recognize her sister. She had a near fall. She required significant assistance to go to the restroom and to shower. She apparently collapsed into the chair that was in the shower. There is no head trauma. History is not available since she responds yes to everything. Sister states that is normal. Sister states she does normally recognize her. She is presently calling her Sister Marilee who is the electrical sign servicer. Spoke with the electrical sign servicer who informed me that she has complex partial seizures that have been difficult to control. She is presently taking Lamictal for her seizures. There is no history of bradycardia. Prior similar symptoms: No Recent Illness/Hospitalization: No [facility] Medical History Blindness of both eyes Generalized seizure History of small bowel obstruction Hyperlipidemia Mild mental handicap Partial symptomatic epilepsy with complex partial seizures, not intractable, without status epilepticus Seizure disorder Vitamin D deficiency Home Medications gabapentin 300 mg capsule 300 mg PO BIDCM 01/20/20 [History Last Taken 08/13/20] potassium chloride 20 mEq tablet,extended release 20 meq PO DAILY #7 tabs 11/22/21 [Rx Last Taken Unknown] cholecalciferol (vitamin D3) 25 mcg (1,000 unit) tablet 1,000 unit PO DAILY 11/27/21 [History Last Taken Unknown] oxcarbazepine 300 mg/5 mL (60 mg/mL) oral suspension 600 mg (10 mL) PO BID #600 mL 12/08/21 [Rx Last Taken Unknown] levothyroxine 25 mcg tablet 25 mcg PO DAILY 04/21/22 [History Last Taken Unknown] ondansetron 4 mg disintegrating tablet 4 mg PO Q8H PRN PRN Nausea #10 tabs 04/21/22 [Rx Last Taken Unknown] sulfamethoxazole 800 mg-trimethoprim 160 mg tablet 1 tab PO BID #14 TABLETS 04/21/22 [Rx Last Taken Unknown] Allergy/AdvReac Type Severity Reaction Status Date / Time bee venom protein (honey bee) Allergy Anaphylaxis Verified 11/27/21 14:04 Family History Mother Heart disease CHF Father Heart disease CHF Surgical History History of left hip replacement Social History (Updated 04/21/22 @ 13:[address] 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 As previously documented patient has cognitive ability of a 3-year-old. EXAM Physical Exam Const Vital Signs: 04/21/22 13:23 04/21/22 13:23 04/21/22 14:09 Temperature 97.6 F L Temperature Source Oral Pulse Rate 50 L 46 L 44 L Respiratory Rate 14 14 14 Blood Pressure 103/46 L 113/57 L Blood Pressure Mean 65 75 Pulse Ox 96 95 95 Oxygen Delivery Method Room Air Room Air Room Air Positive well nourished and well developed; Negative for obese, cachectic, contractures or unkempt Constitutional Narrative: Patient is sitting on the examination cart. Her head is slightly flexed. General Appearance ED: well developed, NAD and pallor; Negative for unkempt, cachectic, contractures, cyanotic or diaphoretic Nutritional Appearance: Negative for cachectic or obese HEENT Reports moist mucous membranes Negative for trauma or tenderness Eyes EOMs intact bilaterally; Negative for PERRL Eyes Narrative: There is no nystagmus. There is no subconjunctival hemorrhage. General Eye ED: Negative for scleral icterus Neck no lymphadenopathy, supple and no JVD Resp normal respiratory effort and clear to auscultation bilaterally Cardio regular rhythm, S1 normal heart sound, S2 normal heart sound and no murmurs Rate: bradycardia GI normal to inspection, nondistended, normoactive bowel sounds, non-tender and non-distended; Negative for hepatosplenomegaly Palpation: soft Back/Spine no CVA tenderness Extremity General Extremety ED: Yes edema; Negative for tenderness or other findings General Extremity: edema; Negative for other findings Neuro Neuro Narrative: Unable to assess orientation. Patient does not awake or alert. She does raise her head when asked questions. She follows simple commands. Psych mental status grossly normal Appearance: Negative for unkempt Skin no rashes or lesions noted and no wounds General Skin Exam: pallor; Negative for jaundice MDM MDM MDM Narrative Medical decision making narrative: Patient with altered mental status history of complex partial seizures. Will obtain blood work and UA to assess for metabolic versus infectious cause. He does have history of hyponatremia and hyper natremia. Cath urine was obtained to assess for urinary tract infection. Patient was reassessed at 1500. She is back to baseline. She has passed p.o. challenge. Plan is discharged with 7-day course of Bactrim. Sister feels comfortable with this. She also was prescribed Zofran and ODT Lab Data Attestation: I reviewed the patient's lab results. Lab results narrative: White count is slightly elevated 12.0 thousand with shift of 79 segs no bands 13% lymphocytes. Comprehensive metabolic panel is remarkable for potassium of 3.1. GFR is 124. Urine is positive for bacteria. There is is no epithelial cells. Urine culture was ordered and patient received a gram of Rocephin. Labs: Laboratory Results - last 24 hr 04/21/22 04/21/22 04/21/22 13:40 13:40 14:00 WBC 12.0 H RBC 4.06 L Hgb 12.3 Hct 36.2 L MCV 89.2 MCH 30.3 MCHC 34.0 RDW Std Deviation 42.2 RDW Coeff of Jose 13.0 Plt Count 167 MPV 9.9 Immature Gran % (Auto) 0.600 Neut % (Auto) 79.1 H Lymph % (Auto) 12.9 L [place] % (Auto) 6.2 Eos % (Auto) 0.9 Baso % (Auto) 0.3 Absolute Neuts (auto) 9.5 H Absolute Lymphs (auto) 1.55 Nucleated RBC % 0 Sodium 141 Potassium 3.1 L Chloride 108 H Carbon Dioxide 27.0 Anion Gap 6 BUN 14 Creatinine 0.52 L Estim Creat Clear Calc 46.50 Est GFR (MDRD) Af Amer 150 Est GFR (MDRD) Non-Af 124 BUN/Creatinine Ratio 26.9 H Glucose 121 H Calcium 8.2 L Total Bilirubin 0.20 AST 14 L ALT 12 L Alkaline Phosphatase 77 Total Protein 5.9 L Albumin 3.1 L Globulin 2.8 Albumin/Globulin Ratio 1.1 Urine RBC 0 SEEN Urine WBC 0-5 SEEN Ur Squamous Epith Cells 0-5 SEEN Urine Bacteria 3+ Urine Mucus 0 SEEN EKG Initial EKG: Attestation: I personally reviewed and interpreted this EKG as follows: Interpretation: Sinus Bradycardia (Sinus bradycardia with a ventricular rate of 46. RI interval 260 ms. QS duration 76 ms. QT duration 478 ms. [place] is normal. Other than the bradycardia the EKG is normal) Discharge Plan Triage Chief Complaint: Nausea/Vomiting ED Provider: Clem Bishop Dx/Rx/DC Orders Clinical Impression: Urinary tract infection, Acute alteration in mental status Instructions: ED CYSTITIS Female Adult Prescriptions: New sulfamethoxazole-trimethoprim [sulfamethoxazole-trimethoprim] 800-160 mg tablet 1 tab PO BID Qty: 14 0RF ondansetron [ondansetron] 4 mg tablet,disintegrating 4 mg PO Q8H PRN PRN (Reason: Nausea) Qty: 10 0RF No Action cholecalciferol (vitamin D3) 25 mcg (1,000 unit) tablet 1,000 unit PO DAILY Label Comments: take 1 capsule by mouth once daily (DISCONTINUE WEEKLY VITAMIN D 50,000) gabapentin 300 MG capsule 300 mg PO BIDCM potassium chloride 20 mEq tablet extended release 20 meq PO DAILY Qty: 7 0RF levothyroxine 25 mcg tablet 25 mcg PO DAILY Label Comments: take 1 tablet by mouth once daily oxcarbazepine 300 mg/5 mL (60 mg/mL) suspension 600 mg PO BID Qty: 600 2RF Primary Care Provider: Héctor Bosch Chi Referrals: Héctor Bosch Chi, MD [Primary Care Provider] - 3-5 Days Disposition Disposition: Home, Self Care
[2022-04-21 13:52] LABS: Absolute Lymphocyte Count 1.55 X10^3/uL (0.83-4.51); Absolute Neutrophil Count 9.5 X10^3/uL (2.0-7.7); Basophil# 0.04 X10^3/uL; Basophil% 0.3 % (0-1); Eosinophil# 0.11 X10^3/uL; Eosinophils% 0.9 % (0-5); Hematocrit 36.2 % (37-47); Hemoglobin 12.3 g/dL (12.0-15.0); Lymphocyte # 1.55 X10^3/ul (0.83-4.51); Lymphocyte % 12.9 % (19-41); Mean Corpuscular Hgb 30.3 pg (27.0-32.0); Mean Corpuscular Volume 89.2 fL (81-99); Mean Platelet Vol. 9.9 fl (6.2-12.0); Monocyte# 0.74 X10^3/uL; Monocyte% 6.2 % (0-10); NRBC Flagged by Analyzer 0 % (0-5); Neutrophil # 9.47 X10^3/uL (2.7-7.7); Neutrophil % 79.1 % (47-70); Platelet Count 167 K/mm3 (150-450); RBC Distribution Width SD 42.2 fl (35.1-43.9); Red Blood Count 4.06 M/mm3 (4.2-5.4)
[2022-04-21 14:05] LABS: ALB/GLOB Ratio 1.1 RATIO (0.9-2.4); AST(SGOT) 14 U/L (15-37); Alanine Aminotransfer ALT/SGPT 12 U/L (13-56); Albumin, Serum 3.1 g/dL (3.2-5.0); Alkaline Phosphatase 77 U/L (45-117); Anion Gap 6 (5-15); BUN 14 mg/dL (7-18); BUN/Creat Ratio 26.9 RATIO (10-20); Calcium,Total 8.2 mg/dL (8.5-10.1); Chloride 108 mmol/L (98-107); Creatinine, Serum 0.52 mg/dL (0.55-1.02); EST Glomerular Filtration Rate 124 mL/min (>60); Est Glom Filt Rate - Afr Amer 150 mL/min (>60); Globulin 2.8 g/dL (2.2-4.2); Glucose 121 mg/dL (74-106); Potassium 3.1 mmol/L (3.5-5.1); Protein, Total 5.9 g/dL (6.4-8.2); Sodium Level 141 mmol/L (136-145)
[2022-04-21 14:09] VITALS: BP 113/57; PULSE 44; RESP 14; O2SAT 95
[2022-04-21 14:13] LABS: Mucous, Urine 0 SEEN /hpf (<or=2+); Red Blood Cells-Urine 0 SEEN /hpf (0-5)
[2022-04-21 14:15] LABS: Color, Urine Yellow (Yellow); Glucose, Dipstick Normal (Normal); Ketone-Dipstick Negative (Negative); Leukocyte Esterase-Dipstick 25 /ul (Negative); Nitrite-Dipstick Negative (Negative); Occult Blood-Urine 10 /ul (Negative); Protein-Dipstick 15 mg/dl (Negative); Urine Bilirubin Dipstick Negative (Negative); Urine Clarity Clear (Clear); Urine Urobilinogen Normal (Normal)
[2022-04-21 14:20] LABS: Bacteria 3+ /hpf (None Seen); Squamous Epithelial Cells - UA 0-5 SEEN /hpf (5-10); White Blood Cells 0-5 SEEN /hpf (0-5)
[2022-04-21 15:08] VITALS: BP 122/59; PULSE 46; RESP 14; O2SAT 98
[2022-04-21] MEDS: Ceftriaxone 1 GM/50 ML BAG IV (15:12)
[2022-04-21 16:30] VITALS: BP 117/66; PULSE 67; RESP 14; O2SAT 98
== END 2022-04-21 16:44 | disposition home or self-care (01) ==
PROVIDERS: Emergency Provider Emergency Medicine; PCP Family Medicine Geriatric Medicine; Visit Provider Emergency Medicine
DX: N39.0 Urinary tract infection, site not specified (principal); R41.82 Altered mental status, unspecified; Z79.899 Other long term (current) drug therapy
CPT/HCPCS: 80053; 81001; 85025; 87086; 93005; 96365; 96366; 99285; P9612; A4216

== ENCOUNTER → 2022-09-15 | Outpatient (CLI) | payer MEDICARE, MEDICAID, SELFPAY ==
[2022-09-15 17:22] LABS: Absolute Lymphocyte Count 1.61 X10^3/uL (0.83-4.51); Absolute Neutrophil Count 6.5 X10^3/uL (2.0-7.7); Basophil# 0.05 X10^3/uL; Basophil% 0.6 % (0-1); Eosinophil# 0.12 X10^3/uL; Eosinophils% 1.3 % (0-5); Hematocrit 39.2 % (37-47); Hemoglobin 13.5 g/dL (12.0-15.0); Lymphocyte # 1.61 X10^3/ul (0.83-4.51); Lymphocyte % 17.9 % (19-41); Mean Corp Hgb Conc 34.4 g/dL (32-36); Mean Corpuscular Hgb 30.9 pg (27.0-32.0); Mean Corpuscular Volume 89.7 fL (81-99); Mean Platelet Vol. 9.7 fl (6.2-12.0); Monocyte# 0.71 X10^3/uL; Monocyte% 7.9 % (0-10); NRBC Flagged by Analyzer 0 % (0-5); Neutrophil # 6.45 X10^3/uL (2.7-7.7); Platelet Count 209 K/mm3 (150-450); RBC Distribution Width CV 12.4 % (11.6-14.6); RBC Distribution Width SD 41.1 fl (35.1-43.9); Red Blood Count 4.37 M/mm3 (4.2-5.4)
[2022-09-15 17:54] LABS: ALB/GLOB Ratio 1.1 RATIO (0.9-2.4); AST(SGOT) 21 U/L (15-37); Alanine Aminotransfer ALT/SGPT 20 U/L (13-56); Albumin, Serum 3.5 g/dL (3.2-5.0); Alkaline Phosphatase 103 U/L (45-117); Anion Gap 9 (5-15); BUN 15 mg/dL (7-18); BUN/Creat Ratio 27.3 RATIO (10-20); Calcium,Total 8.7 mg/dL (8.5-10.1); Chloride 103 mmol/L (98-107); Creatinine, Serum 0.55 mg/dL (0.55-1.02); EST Glomerular Filtration Rate 117 mL/min (>60); Est Glom Filt Rate - Afr Amer 141 mL/min (>60); Globulin 3.1 g/dL (2.2-4.2); Glucose 86 mg/dL (74-106); Potassium 3.6 mmol/L (3.5-5.1); Protein, Total 6.6 g/dL (6.4-8.2); Sodium Level 136 mmol/L (136-145); Thyroid Stim Hormone (TSH) 3.49 uIU/mL (0.358-3.74)
[2022-09-15 18:18] LABS: Vitamin D,25 Hydroxy 15.9 ng/mL
== END | disposition home or self-care (01) ==
LOC: POLAB3 15:55
PROVIDERS: PCP Family Medicine Geriatric Medicine; Visit Provider Family Medicine Geriatric Medicine
DX: E55.9 Vitamin D deficiency, unspecified (principal); R53.83 Other fatigue
CPT/HCPCS: 36415; 80053; 82306; 84443; 85025

== ENCOUNTER → 2022-09-24 | Outpatient (CLI) | payer MEDICARE, MEDICAID, SELFPAY ==
[2022-09-29 16:53] LABS: Trileptal-Oxcarbazepine 31 ug/mL (10-35)
== END | disposition home or self-care (01) ==
PROVIDERS: PCP Family Medicine Geriatric Medicine; Referring Provider Psychiatry & Neurology Neurology; Visit Provider Psychiatry & Neurology Neurology
DX: G40.909 Epilepsy, unspecified, not intractable, without status epilepticus (principal)
CPT/HCPCS: 36415; 82542

== ENCOUNTER 2023-02-03 17:09 | Emergency (ER) | payer MEDICARE, MEDICAID, SELFPAY ==
[2023-02-03 17:09] VITALS: BP 105/54; PULSE 67; RESP 14; TEMP 36.1; O2SAT 99
--- NOTE | 2023-02-03 17:43 | CT_ITS ---
STUDY: CT CERVICAL SPINE WITHOUT CONTRAST REASON FOR EXAM: Female, 67 years old. trauma RADIATION DOSAGE (If Supplied By Facility): CTDIvol = ( 12.39 ) mGy, DLP = ( 204.95 ) mGycm TECHNIQUE: High resolution transaxial imaging was performed without contrast material. Sagittal and coronal images were reconstructed. Individualized dose optimization techniques were used for this CT. COMPARISON: None FINDINGS: Normal craniovertebral junction. Normal anterior atlantoaxial articulation. Normal odontoid process. There is straightening of the normal cervical lordosis. Normal vertebral bodies and posterior osseous elements. Spondylosis. Multilevel bilateral neural foraminal narrowing due to uncinate spondylosis. C2-3: Normal endplates. Normal disc height and morphology. Normal central canal. Narrowed bilateral intervertebral neuroforamina. C3-4: Normal endplates. Normal disc height and morphology. Normal central canal. Narrowed bilateral intervertebral neuroforamina. C4-5: Normal endplates. Normal disc height and morphology. Normal central canal. Narrowed bilateral intervertebral neuroforamina. C5-6: Normal endplates. Normal disc height and morphology. Normal central canal. Narrowed bilateral intervertebral neuroforamina. C6-7: Normal endplates. Normal disc height and morphology. Normal central canal. Narrowed bilateral intervertebral neuroforamina. C7-T1: Normal endplates. Normal disc height and morphology. Normal central canal. Narrowed bilateral intervertebral neuroforamina. Normal visualized soft tissue structures. CT/Spine Cervical without Contras IMPRESSION: No fracture Electronically Signed: Jamie Mckeon MD at 18:20 EDT ,
--- NOTE | 2023-02-03 17:43 | CT_ITS ---
STUDY: CT BRAIN WITHOUT CONTRAST REASON FOR EXAM: Female, 67 years old. trauma RADIATION DOSAGE (If Supplied By Facility): CTDIvol = ( 44.99 ) mGy, DLP = ( 762.36 ) mGycm TECHNIQUE: Transaxial CT imaging of the brain was performed without administration of intravenous contrast material. Individualized dose optimization techniques were used for this CT. COMPARISON: CT brain August 15, 2020 FINDINGS: Normal soft tissue structures. Normal calvarium. Normal size ventricles and extra-axial spaces for the patient''s age. Small stable right Parietal cortical infarctions and X vacuo dilatation posterior horn right lateral ventricle. Stable extra-axial fluid right posterior parietal calvarium near the vertex measures 4.5 x 2.3 cm in AP and transverse dimensions. Normal white matter tracts of the cerebral hemispheres. Normal basal ganglia and thalami. Normal brainstem. Normal cerebellum. Subtentorial extra-axial fluid on the right measuring 10 x 54 mm in craniocaudal and transverse dimensions. Intracranial atherosclerosis. STUDY: CT BRAIN WITHOUT CONTRAST REASON FOR EXAM: Female, 67 years old. trauma RADIATION DOSAGE (If Supplied By Facility): CTDIvol = ( 44.99 ) mGy, DLP = ( 762.36 ) mGycm TECHNIQUE: Transaxial CT imaging of the brain was performed without administration of intravenous contrast material. Individualized dose optimization techniques were used for this CT. COMPARISON: CT brain August 15, 2020 FINDINGS: Normal soft tissue structures. Normal calvarium. Normal size ventricles and extra-axial spaces for the patient''s age. Small stable right Parietal cortical infarctions and X vacuo dilatation posterior horn right lateral ventricle. Stable extra-axial fluid right posterior parietal calvarium near the vertex measures 4.5 x 2.3 cm in AP and transverse dimensions. Normal white matter tracts of the cerebral hemispheres. Normal basal ganglia and thalami. Normal brainstem. Normal cerebellum. Subtentorial extra-axial fluid on the right measuring 10 x 54 mm in craniocaudal and transverse dimensions. There is no intracranial hemorrhage. There are no findings of an acute ischemic infarction. Bilateral phthisis bulbi. Normal visualized paranasal sinuses. CT/Brain/Head without Contrast IMPRESSION: No acute traumatic sequelae. Probable small arachnoid cyst right parietal convexity stable in size and configuration. Right subtentorial extra-axial fluid collection. Right posterior parietal remote infarctions and ex vacuo dilatation posterior horn lateral ventricle. Recommend MRI with and without contrast. Electronically Signed: Jamie Mckeon MD at 18:14 EDT ,
--- NOTE | 2023-02-03 17:49 | ED.VIS.FALL ---
HPI HPI - Fall History of Present Illness Chief Complaint: Fall Informant: patient and family Occured/Mechanism Occurred: Today Narrative Narrative: Patient presents after fall at Dr. Bosch's office. At the end of her visit she stood from her rollator and caught her foot falling forward onto her knees and hands. She fell forward and struck her head on the ground. She did not lose consciousness. She is on no anticoagulants. Sister states that she typically does not feel pain and has no complaints at this time. Sister also noted that her right knee seems to be swollen after the fall. [facility] Medical History Blindness of both eyes Fatigue Generalized seizure History of small bowel obstruction Hyperlipidemia Mild mental handicap Partial symptomatic epilepsy with complex partial seizures, not intractable, without status epilepticus Seizure disorder Vitamin D deficiency Home Medications gabapentin 300 mg capsule 300 mg PO BIDCM 01/20/20 [History Last Taken 08/13/20] Handicap Placard #1 ea 09/24/22 [Rx Last Taken Unknown] 4 wheel rollator with seat #1 ea 01/26/23 [Rx Last Taken Unknown] cholecalciferol (vitamin D3) 1,250 mcg (50,000 unit) capsule 1,250 mcg PO QWEEK #12 caps 01/26/23 [Rx Last Taken Unknown] collagen PO DAILY 01/26/23 [History Last Taken Unknown] oxcarbazepine 300 mg/5 mL (60 mg/mL) oral suspension 600 mg (10 mL) PO BID #1,800 mL 01/26/23 [Rx Last Taken Unknown] Allergy/AdvReac Type Severity Reaction Status Date / Time bee venom protein (honey bee) Allergy Anaphylaxis Verified 02/03/23 17:11 Family History Mother Heart disease CHF Father Heart disease CHF Surgical History History of left hip replacement Social History household members: other details: Sister- Dora Smoking Status: Never smoker Electronic Cigarette Use: not used second hand exposure: Yes alcohol intake: never substance use type: does not use seatbelt use: always ROS ROS ED Constitutional Constitutional ED: Denies chills or fever(s) ENT ENT ED: Denies rhinorrhea Cardiovascular Cardiovascular: Denies chest pain Respiratory/Chest Respiratory/Chest: Denies cough or dyspnea Gastrointestinal Gastrointestinal: Denies abdominal pain, nausea or vomiting Musculoskeletal Musculoskeletal: Reports other Details: Right knee swelling ; Denies back pain Integumentary Denies Abrasions or rash Neurologic Neurologic: Denies weakness Endocrine Endocrinology: Denies polydipsia or polyuria Allergic/Immunologic Allergic/Immunologic ED: Denies lip swelling or urticaria EXAM Physical Exam Const Vital Signs: 02/03/23 17:09 02/03/23 17:20 Temperature 97 F L Temperature Source Temporal Pulse Rate 67 Respiratory Rate 14 Respiratory Effort Normal Non-Labored Blood Pressure 105/54 L Blood Pressure Mean 71 Pulse Ox 99 Oxygen Delivery Method Room Air Room Air Positive well nourished and well developed General Appearance ED: well developed HEENT HEENT Narrative: Mild edema noted over the frontal scalp. No lacerations. Neck Neck Narrative: Focal C-spine tenderness. Chest Wall inspection of chest normal and palpation of chest normal Resp normal respiratory effort and clear to auscultation bilaterally Cardio regular rate and regular rhythm GI non-tender Extremity Extremity Narrative: Mild edema noted to the anterior right knee. Patient reports no tenderness with palpation. No tenderness over the upper extremities. Neuro Neuro Narrative: Alert and answers questions appropriately. Skin Lesions: no lesions Rashes: no rashes MDM MDM MDM Narrative Medical decision making narrative: X-ray of the right knee obtained to evaluate for evidence of fracture. CT scan of the brain and C-spine obtained to evaluate for fracture, bleed, edema. Radiography Diagnostic Testing: Clinical Impression(s) from Imaging Studies Brain CT 02/03/23 17:43 IMPRESSION: No acute traumatic sequelae. Probable small arachnoid cyst right parietal convexity stable in size and configuration. Right subtentorial extra-axial fluid collection. Right posterior parietal remote infarctions and ex vacuo dilatation posterior horn lateral ventricle. Recommend MRI with and without contrast. Electronically Signed: Jamie Mckeon MD at 18:14 EDT Reading Location ID and State: [address] [place] [address] , Service support , Cervical Spine CT 02/03/23 17:43 IMPRESSION: No fracture Electronically Signed: Jamie Mckeon MD at 18:20 EDT Reading Location ID and State: [facility] / [place] , Service support , Knee X-Ray 02/03/23 18:00 IMPRESSION: Normal x-ray examination of the knee. Electronically Signed: Jamie Mckeon MD at 18:21 EDT Reading Location ID and State: [facility] / [place] , Service support , Treatment and Re-Evaluation Narrative: Right knee x-ray per my interpretation reveals no acute fracture. Radiology interpretation is reviewed and agrees. CT scan of the C-spine reveals no fracture. CT scan of the brain reveals extra fluid collections. When compared to prior study this appears to be largely unchanged. There is no evidence of hemorrhage or fracture. Test results discussed with patient and sister at bedside. Joe wrap is applied to the right knee. She will be discharged home with sister to continue supportive care. Discharge Plan Triage Chief Complaint: Fall ED Provider: Glenda Smiley Dx/Rx/DC Orders Clinical Impression: Fall, Contusion of knee, right, CHI (closed head injury) Instructions: ED Contusion, Lower Extremity, ED Mechanical Fall, ED Head Injury (Adult) Prescriptions: No Action (DME) Handicap Placard See Rx Instructions .Route .MEDSUPPLY Qty: 1 0RF Rx Instructions: Expiration: 09/24/2025 oxcarbazepine 300 mg/5 mL (60 mg/mL) suspension 600 mg PO BID Qty: 1800 1RF cholecalciferol (vitamin D3) 1,250 mcg (50,000 unit) capsule 1,250 mcg PO QWEEK Qty: 12 1RF (DME) 4 wheel rollator with seat See Rx Instructions .Route .MEDSUPPLY Qty: 1 0RF Rx Instructions: As directed collagen tablet PO DAILY gabapentin 300 MG capsule 300 mg PO BIDCM Primary Care Provider: Héctor Bosch Chi Referrals: Héctor Bosch Chi, MD [Primary Care Provider] - As Needed Disposition Disposition: Home, Self Care
--- NOTE | 2023-02-03 18:00 | RAD_ITS ---
STUDY: X-RAY - RIGHT KNEE REASON FOR EXAM: Female, 67 years old. fall TECHNIQUE: 4 view(s) of the knee. COMPARISON: None. FINDINGS: Normal visualized distal femur. Normal visualized proximal tibia and fibula. Normal proximal tibiofibular articulation. Normal medial femorotibial compartment. Normal lateral femorotibial compartment. Normal patellofemoral articulation. The soft tissue structures are unremarkable. RAD/Knee 4 or More Views IMPRESSION: Normal x-ray examination of the knee. Electronically Signed: Jamie Mckeon MD at 18:21 EDT ,
[2023-02-03 18:58] VITALS: RESP 18; BMI 25.8
== END 2023-02-03 19:11 | disposition home or self-care (01) ==
PROVIDERS: Emergency Provider Emergency Medicine; PCP Family Medicine Geriatric Medicine; Visit Provider Emergency Medicine
DX: S80.01XA Contusion of right knee, initial encounter (principal); S09.90XA Unspecified injury of head, initial encounter; W19.XXXA Unspecified fall, initial encounter
CPT/HCPCS: 70450; 72125; 73564; 99282

== ENCOUNTER → 2023-04-13 | Outpatient (CLI) | payer MEDICARE, MEDICAID, SELFPAY ==
--- NOTE | 2023-04-13 10:55 | RAD_ITS ---
STUDY: X-RAY - LUMBAR SPINE REASON FOR EXAM: Female, 67 years old. Pain. TECHNIQUE: 2 view(s) of the lumbar spine were obtained. COMPARISON: None FINDINGS: Osteopenia. Normal lumbar lordosis. No substantial scoliosis. Normal alignment of the vertebrae. Diffuse lower thoracic and lumbosacral facet sclerosis. Diffuse intervertebral disc space narrowing with osteophyte formation most marked at L1-2, L2-3, L3-4 and L4-5. Left total hip arthroplasty with mild arthrosis of the right hip. Vascular calcification. RAD/Lumbar Spine 2 or 3 Views IMPRESSION: Osteopenia with diffuse lower thoracic and lumbosacral spondylosis as described. No acute abnormality or erosive changes. Electronically Signed: Shravan Pool MD at 11:47 EDT ,
--- NOTE | 2023-04-13 10:55 | RAD_ITS ---
STUDY: X-RAY - CERVICAL SPINE REASON FOR EXAM: Female, 67 years old. Neck pain. TECHNIQUE: 3 view(s) of the cervical spine were obtained. COMPARISON: CT of the cervical spine dated February 03, 2023. FINDINGS: Osteopenia. Normal anterior atlantoaxial articulation. Normal odontoid process. Diffuse uncovertebral and facet sclerosis. Diffuse intervertebral disc space narrowing with osteophyte formation similar to what was shown on the cervical spine CT. Normal soft tissues. RAD/Cerv Spine 2 or 3 Views IMPRESSION: Osteopenia with diffuse moderate cervical spondylosis as described. No acute abnormality identified. Electronically Signed: Shravan Pool MD at 11:41 EDT ,
--- NOTE | 2023-04-13 10:55 | RAD_ITS ---
STUDY: X-RAY - THORACIC SPINE REASON FOR EXAM: Female, 67 years old. Pain. TECHNIQUE: 2 view(s) of the thoracic spine were obtained. COMPARISON: None. FINDINGS: Osteopenia. Increased kyphosis. No substantial scoliosis. Diffuse intervertebral disc space narrowing with small osteophytes. . Normal soft tissues. RAD/Thoracic Spine 3 Views IMPRESSION: Osteopenia with diffuse thoracic and upper lumbar spondylosis. No acute abnormality or erosive changes. Electronically Signed: Shravan Pool MD at 13:04 EDT ,
== END | disposition home or self-care (01) ==
LOC: RAD 10:41
PROVIDERS: PCP Family Medicine Geriatric Medicine; Referring Provider Chiropractor; Visit Provider Chiropractor
DX: S13.4XXA Sprain of ligaments of cervical spine, initial encounter (principal); S23.3XXA Sprain of ligaments of thoracic spine, initial encounter; S33.5XXA Sprain of ligaments of lumbar spine, initial encounter
CPT/HCPCS: 72040; 72072; 72100

== ENCOUNTER → 2023-06-01 | Outpatient (CLI) | payer MEDICARE, MEDICAID, SELFPAY ==
[2023-06-01 15:58] LABS: Absolute Neutrophil Count 2.7 X10^3/uL (2.0-7.7); Basophil# 0.05 X10^3/uL; Basophil% 0.9 % (0-1); Eosinophil# 0.22 X10^3/uL; Eosinophils% 3.8 % (0-5); Hematocrit 39.3 % (37-47); Hemoglobin 13.8 g/dL (12.0-15.0); Mean Corp Hgb Conc 35.1 g/dL (32-36); Mean Corpuscular Hgb 30.7 pg (27.0-32.0); Mean Corpuscular Volume 87.5 fL (81-99); Mean Platelet Vol. 8.6 fl (6.2-12.0); Monocyte# 0.57 X10^3/uL; Monocyte% 9.8 % (0-10); NRBC Flagged by Analyzer 0 % (0-5); Neutrophil # 2.74 X10^3/uL (2.7-7.7); Neutrophil % 47.3 % (47-70); Platelet Count 260 K/mm3 (150-450); RBC Distribution Width CV 12.5 % (11.6-14.6); RBC Distribution Width SD 39.9 fl (35.1-43.9); Red Blood Count 4.49 M/mm3 (4.2-5.4); White Blood Count 5.8 K/mm3 (4.4-11.0)
[2023-06-01 16:13] LABS: AST(SGOT) 16 U/L (15-37); Alanine Aminotransfer ALT/SGPT 19 U/L (13-56); Albumin, Serum 3.6 g/dL (3.2-5.0); Alkaline Phosphatase 139 U/L (45-117); Anion Gap 7 (5-15); BUN 18 mg/dL (7-18); BUN/Creat Ratio 26.8 RATIO (10-20); Calcium,Total 8.8 mg/dL (8.5-10.1); Chloride 94 mmol/L (98-107); Creatinine, Serum 0.67 mg/dL (0.55-1.02); EST Glomerular Filtration Rate 92 mL/min (>60); Est Glom Filt Rate - Afr Amer 112 mL/min (>60); Globulin 3.6 g/dL (2.2-4.2); Glucose 91 mg/dL (74-106); Potassium 4.3 mmol/L (3.5-5.1); Protein, Total 7.2 g/dL (6.4-8.2); Sodium Level 129 mmol/L (136-145)
[2023-06-01 16:23] LABS: Color, Urine Yellow (Yellow); Glucose, Dipstick Normal (Normal); Ketone-Dipstick Negative (Negative); Leukocyte Esterase-Dipstick 25 /ul (Negative); Nitrite-Dipstick Negative (Negative); Occult Blood-Urine 10 /ul (Negative); Protein-Dipstick 15 mg/dl (Negative); Specific Gravity, Urine 1.015 (1.002-1.030); Urine Bilirubin Dipstick Negative (Negative); Urine Clarity Sl. Cloudy (Clear); Urine Urobilinogen 1 mg/dl (Normal)
[2023-06-06 17:07] LABS: Trileptal-Oxcarbazepine 27 ug/mL (10-35)
== END | disposition home or self-care (01) ==
LOC: POLAB3 15:20
PROVIDERS: PCP Family Medicine Geriatric Medicine; Visit Provider Family Medicine Geriatric Medicine
DX: G40.909 Epilepsy, unspecified, not intractable, without status epilepticus (principal)
CPT/HCPCS: 36415; 80053; 81002; 82542; 85025

== ENCOUNTER → 2023-06-03 | Outpatient (CLI) | payer MEDICARE, MEDICAID, SELFPAY ==
[2023-06-03 10:08] LABS: Urine Sodium 98 mmol/L (Not Establ.)
[2023-06-03 10:23] LABS: Anion Gap 8 (5-15); BUN 13 mg/dL (7-18); BUN/Creat Ratio 20.3 RATIO (10-20); Calcium,Total 8.9 mg/dL (8.5-10.1); Chloride 90 mmol/L (98-107); Creatinine, Serum 0.64 mg/dL (0.55-1.02); EST Glomerular Filtration Rate 97 mL/min (>60); Est Glom Filt Rate - Afr Amer 118 mL/min (>60); Glucose 119 mg/dL (74-106); Potassium 4.1 mmol/L (3.5-5.1); Sodium Level 126 mmol/L (136-145)
[2023-06-03 10:37] LABS: Osmolality, Serum 268 mOsm/KG (280-301)
[2023-06-03 10:43] LABS: Osmolality, Urine 528 mOsm/KG
== END | disposition home or self-care (01) ==
LOC: LAB 08:24
PROVIDERS: PCP Family Medicine Geriatric Medicine; Visit Provider Family Medicine Geriatric Medicine
DX: E87.1 Hypo-osmolality and hyponatremia (principal)
CPT/HCPCS: 36415; 80048; 83930; 83935; 84300

== ENCOUNTER → 2023-06-28 | Outpatient (CLI) | payer MEDICARE, MEDICAID, SELFPAY ==
[2023-06-28 11:19] LABS: Hematocrit 42.5 % (37-47); Hemoglobin 14.4 g/dL (12.0-15.0); Mean Corp Hgb Conc 33.9 g/dL (32-36); Mean Corpuscular Hgb 29.4 pg (27.0-32.0); Mean Corpuscular Volume 86.9 fL (81-99); Mean Platelet Vol. 8.7 fl (6.2-12.0); Platelet Count 279 K/mm3 (150-450); RBC Distribution Width CV 12.3 % (11.6-14.6); RBC Distribution Width SD 39.4 fl (35.1-43.9); Red Blood Count 4.89 M/mm3 (4.2-5.4); White Blood Count 5.9 K/mm3 (4.4-11.0)
[2023-06-28 11:50] LABS: ALB/GLOB Ratio 1.1 RATIO (0.9-2.4); AST(SGOT) 20 U/L (15-37); Alanine Aminotransfer ALT/SGPT 21 U/L (13-56); Alkaline Phosphatase 162 U/L (45-117); Anion Gap 8 (5-15); BUN 8 mg/dL (7-18); BUN/Creat Ratio 14.3 RATIO (10-20); Chloride 90 mmol/L (98-107); Creatinine, Serum 0.56 mg/dL (0.55-1.02); EST Glomerular Filtration Rate 114 mL/min (>60); Est Glom Filt Rate - Afr Amer 138 mL/min (>60); Globulin 3.6 g/dL (2.2-4.2); Glucose 96 mg/dL (74-106); Potassium 4.3 mmol/L (3.5-5.1); Protein, Total 7.6 g/dL (6.4-8.2); Sodium Level 125 mmol/L (136-145)
[2023-06-30 12:08] LABS: Vitamin D 1,25-Dihydroxy 53.6 pg/mL (24.8-81.5)
[2023-07-01 11:09] LABS: Trileptal-Oxcarbazepine 28 ug/mL (10-35)
== END | disposition home or self-care (01) ==
LOC: LAB.FUTURE 10:43 → LAB 06-29 06:14
PROVIDERS: Psychiatry & Neurology Neurology; PCP Family Medicine Geriatric Medicine; Referring Provider Family Medicine Geriatric Medicine; Visit Provider Family Medicine Geriatric Medicine
DX: E87.1 Hypo-osmolality and hyponatremia (principal); E55.9 Vitamin D deficiency, unspecified
CPT/HCPCS: 36415; 80053; 82542; 82652; 85027

== ENCOUNTER → 2023-07-13 | Outpatient (CLI) | payer MEDICARE, MEDICAID, SELFPAY ==
[2023-07-13 17:42] LABS: Sodium Level 129 mmol/L (136-145)
== END | disposition home or self-care (01) ==
LOC: MTLAB 14:59
PROVIDERS: PCP Family Medicine Geriatric Medicine; Referring Provider Psychiatry & Neurology Neurology; Visit Provider Psychiatry & Neurology Neurology
DX: E87.1 Hypo-osmolality and hyponatremia (principal)
CPT/HCPCS: 36415; 84295

== ENCOUNTER → 2023-08-05 | Outpatient (CLI) | payer MEDICARE, MEDICAID, SELFPAY ==
--- NOTE | 2023-08-05 10:18 | BD_ITS ---
STUDY: DUAL ENERGY X-RAY ABSORPTIOMETRY / DXA REASON FOR EXAM: Female, 67 years old. Osteopenia on spinal axis x-rays TECHNIQUE: Bone Mineral Density (BMD) measurements of lumbar spine and right hip were obtained. COMPARISON: None. FINDINGS: Lumbar Spine (L1-L4): g/cm2 (0.976) / T-score (-1.1) / Z-score (1.1) Findings are suggestive of osteopenia with a low fracture risk. Right Femur Total: g/cm2 (0.696) / T-score (-2.0) / Z-score (-0.5) Right Femoral Neck: g/cm2 (0.603) / T-score (-2.2) / Z-score (-0.4) BD/Dexa Bone Density Study IMPRESSION: The patient is considered osteopenic as outlined below according to World Sampson Organization (WHO) criteria with a high fracture risk. Reference Information: The T-score is the number of standard deviations above or below the standard which is normal for young adults at their peak bone mineral density. The World Health Organization (WHO) interprets the T-scores as follows: Above -1 Normal bone density Between -1 and -2.5 Osteopenia Equal to / or below -2.5 Osteoporosis As a practical clinical guideline, osteopenia may be graded as follows: Mild -1 through -1.5 Moderate -1.6 through -2.0 Severe -2.1 through -2.4 The Z-score is the number of standard deviations above or below age-matched controls. A Z-score of less than -1.5 would be considered abnormal. References: 1. NIH Osteoporosis and Related Bone Diseases www osteo.org 2. International Society for Clinical Densitometry www iscd.org 3. National Osteoporosis Foundation www nof.org Electronically Signed: Billy Cagle MD at 11:00 EDT ,
== END | disposition home or self-care (01) ==
LOC: OPBD 10:13
PROVIDERS: PCP Family Medicine Geriatric Medicine; Referring Provider Psychiatry & Neurology Neurology; Visit Provider Psychiatry & Neurology Neurology
DX: R93.7 Abnormal findings on diagnostic imaging of other parts of musculoskeletal system (principal); M85.80 Other specified disorders of bone density and structure, unspecified site; M85.89 Other specified disorders of bone density and structure, multiple sites; Z86.39 Personal history of other endocrine, nutritional and metabolic disease
CPT/HCPCS: 77080

== ENCOUNTER → 2023-09-20 | Outpatient (CLI) | payer MEDICARE, MEDICAID, SELFPAY ==
[2023-09-20 14:37] LABS: Absolute Lymphocyte Count 2.12 X10^3/uL (0.83-4.51); Absolute Neutrophil Count 4.8 X10^3/uL (2.0-7.7); Basophil# 0.03 X10^3/uL; Basophil% 0.4 % (0-1); Eosinophil# 0.12 X10^3/uL; Eosinophils% 1.6 % (0-5); Hematocrit 42.4 % (37-47); Hemoglobin 13.7 g/dL (12.0-15.0); Lymphocyte # 2.12 X10^3/ul (0.83-4.51); Lymphocyte % 27.8 % (19-41); Mean Corp Hgb Conc 32.3 g/dL (32-36); Mean Corpuscular Hgb 30.2 pg (27.0-32.0); Mean Corpuscular Volume 93.6 fL (81-99); Mean Platelet Vol. 9.9 fl (6.2-12.0); Monocyte# 0.52 X10^3/uL; Monocyte% 6.8 % (0-10); NRBC Flagged by Analyzer 0 % (0-5); Neutrophil # 4.81 X10^3/uL (2.7-7.7); Platelet Count 241 K/mm3 (150-450); RBC Distribution Width CV 12.8 % (11.6-14.6); Red Blood Count 4.53 M/mm3 (4.2-5.4); White Blood Count 7.6 K/mm3 (4.4-11.0)
[2023-09-20 15:10] LABS: Vitamin D,25 Hydroxy 53.2 ng/mL
[2023-09-20 15:23] LABS: ALB/GLOB Ratio 0.9 RATIO (0.9-2.4); AST(SGOT) 17 U/L (15-37); Alanine Aminotransfer ALT/SGPT 16 U/L (13-56); Albumin, Serum 3.6 g/dL (3.2-5.0); Alkaline Phosphatase 122 U/L (45-117); Anion Gap 7 (5-15); BUN 15 mg/dL (7-18); BUN/Creat Ratio 16.6 RATIO (10-20); Calcium,Total 8.8 mg/dL (8.5-10.1); Chloride 105 mmol/L (98-107); Cholesterol 248 mg/dL (200); Creatinine, Serum 0.91 mg/dL (0.55-1.02); EST Glomerular Filtration Rate 65 mL/min (>60); Est Glom Filt Rate - Afr Amer 79 mL/min (>60); Globulin 3.9 g/dL (2.2-4.2); Glucose 93 mg/dL (74-106); High Density Lipoprotein 58 mg/dL; Potassium 3.8 mmol/L (3.5-5.1); Protein, Total 7.5 g/dL (6.4-8.2); Sodium Level 141 mmol/L (136-145); Triglycerides 180 mg/dL; Very Low Density Lipoprotein 36 mg/dL (5-40)
== END | disposition home or self-care (01) ==
LOC: POLAB3 13:06
PROVIDERS: PCP Family Medicine Geriatric Medicine; Visit Provider Family Medicine Geriatric Medicine
DX: I10 Essential (primary) hypertension (principal); E55.9 Vitamin D deficiency, unspecified; E78.5 Hyperlipidemia, unspecified
CPT/HCPCS: 36415; 80053; 80061; 82306; 84443; 85025

== ENCOUNTER → 2023-11-16 | Outpatient (CLI) | payer MEDICARE, MEDICAID, SELFPAY ==
[2023-11-16 12:33] LABS: Anion Gap 6 (5-15); BUN 13 mg/dL (7-18); BUN/Creat Ratio 17.4 RATIO (10-20); Calcium,Total 9.3 mg/dL (8.5-10.1); Chloride 102 mmol/L (98-107); Creatinine, Serum 0.75 mg/dL (0.55-1.02); EST Glomerular Filtration Rate 82 mL/min (>60); Est Glom Filt Rate - Afr Amer 99 mL/min (>60); Glucose 87 mg/dL (74-106); Potassium 3.8 mmol/L (3.5-5.1); Sodium Level 139 mmol/L (136-145)
== END | disposition home or self-care (01) ==
LOC: MTLAB 10:29
PROVIDERS: PCP Family Medicine Geriatric Medicine; Referring Provider Psychiatry & Neurology Neurology; Visit Provider Psychiatry & Neurology Neurology
DX: G40.209 Localization-related (focal) (partial) symptomatic epilepsy and epileptic syndromes with complex partial seizures, not intractable, without status epilepticus (principal)
CPT/HCPCS: 36415; 80048; 80177; 82140

== ENCOUNTER → 2023-12-15 | Outpatient (CLI) | payer MEDICARE, MEDICAID, SELFPAY ==
[2023-12-15 12:40] LABS: Sodium Level 139 mmol/L (136-145)
[2023-12-18 08:10] LABS: KEPPRA (LEVETIRACETAM) 35.9 ug/mL (10.0-40.0)
== END | disposition home or self-care (01) ==
PROVIDERS: PCP Family Medicine Geriatric Medicine; Referring Provider Psychiatry & Neurology Neurology; Visit Provider Psychiatry & Neurology Neurology
DX: G40.909 Epilepsy, unspecified, not intractable, without status epilepticus (principal)
CPT/HCPCS: 36415; 80177; 82140; 84295

== ENCOUNTER → 2024-03-10 | Outpatient (CLI) | payer MEDICARE, MEDICAID, SELFPAY ==
[2024-03-10 10:48] LABS: ALB/GLOB Ratio 0.9 RATIO (0.9-2.4); AST(SGOT) 28 U/L (15-37); Alanine Aminotransfer ALT/SGPT 23 U/L (13-56); Albumin, Serum 3.4 g/dL (3.2-5.0); Alkaline Phosphatase 91 U/L (45-117); Anion Gap 7 (5-15); BUN 13 mg/dL (7-18); Chloride 105 mmol/L (98-107); Creatinine, Serum 0.76 mg/dL (0.55-1.02); EST Glomerular Filtration Rate 79 mL/min (>60); Est Glom Filt Rate - Afr Amer 96 mL/min (>60); Globulin 3.8 g/dL (2.2-4.2); Glucose 73 mg/dL (74-106); Protein, Total 7.2 g/dL (6.4-8.2); Sodium Level 139 mmol/L (136-145)
[2024-03-10 11:22] LABS: Valproic Acid (Depakene) Level 101 ug/mL (50-100)
== END | disposition home or self-care (01) ==
PROVIDERS: PCP Family Medicine Geriatric Medicine; Referring Provider Psychiatry & Neurology Neurology; Visit Provider Psychiatry & Neurology Neurology
DX: G40.909 Epilepsy, unspecified, not intractable, without status epilepticus (principal)
CPT/HCPCS: 36415; 80053; 80164

== ENCOUNTER → 2024-03-13 | Outpatient (CLI) | payer MEDICARE, MEDICAID, SELFPAY ==
[2024-03-13 12:35] LABS: Bacteria 0 SEEN /hpf (None Seen); Mucous, Urine 0 SEEN /hpf (<or=2+); Red Blood Cells-Urine 0 SEEN /hpf (0-5); Squamous Epithelial Cells - UA 0 SEEN /hpf (5-10); White Blood Cells 0 SEEN /hpf (0-5)
[2024-03-13 16:28] LABS: Color, Urine Yellow (Yellow); Glucose, Dipstick Normal (Normal); Ketone-Dipstick 15 mg/dl (Negative); Leukocyte Esterase-Dipstick Negative /ul (Negative); Nitrite-Dipstick Negative (Negative); Occult Blood-Urine Negative /ul (Negative); Protein-Dipstick Negative (Negative); Urine Bilirubin Dipstick Negative (Negative); Urine Clarity Clear (Clear); Urine Urobilinogen Normal (Normal); Urine pH 6.5 (5.0 - 8.0)
[2024-03-13 16:53] LABS: AST(SGOT) 28 U/L (15-37); Alanine Aminotransfer ALT/SGPT 26 U/L (13-56); Albumin, Serum 3.6 g/dL (3.2-5.0); Alkaline Phosphatase 89 U/L (45-117); Anion Gap 12 (5-15); BUN 18 mg/dL (7-18); BUN/Creat Ratio 22.5 RATIO (10-20); Calcium,Total 9.5 mg/dL (8.5-10.1); Chloride 102 mmol/L (98-107); EST Glomerular Filtration Rate 75 mL/min (>60); Est Glom Filt Rate - Afr Amer 91 mL/min (>60); Globulin 3.5 g/dL (2.2-4.2); Glucose 76 mg/dL (74-106); Potassium 4.2 mmol/L (3.5-5.1); Protein, Total 7.1 g/dL (6.4-8.2); Sodium Level 137 mmol/L (136-145)
[2024-03-13 17:34] LABS: Hematocrit 44.5 % (37-47); Hemoglobin 14.6 g/dL (12.0-15.0); Mean Corp Hgb Conc 32.8 g/dL (32-36); Mean Corpuscular Hgb 29.4 pg (27.0-32.0); Mean Corpuscular Volume 89.7 fL (81-99); Mean Platelet Vol. 10.9 fl (6.2-12.0); Platelet Count 144 K/mm3 (150-450); RBC Distribution Width CV 13.2 % (11.6-14.6); RBC Distribution Width SD 43.1 fl (35.1-43.9); Red Blood Count 4.96 M/mm3 (4.2-5.4)
== END | disposition home or self-care (01) ==
LOC: MTLAB 11:21
PROVIDERS: PCP Family Medicine Geriatric Medicine; Referring Provider Psychiatry & Neurology Neurology; Visit Provider Psychiatry & Neurology Neurology
DX: G40.909 Epilepsy, unspecified, not intractable, without status epilepticus (principal); R26.9 Unspecified abnormalities of gait and mobility
CPT/HCPCS: 80053; 81001; 82140; 85027

== ENCOUNTER → 2024-07-13 | Outpatient (CLI) | payer MEDICARE, MEDICAID, SELFPAY | END | disposition home or self-care (01) | PROVIDERS: PCP Family Medicine Geriatric Medicine; Referring Provider Psychiatry & Neurology Neurology; Visit Provider Psychiatry & Neurology Neurology | DX: E72.20 Disorder of urea cycle metabolism, unspecified (principal) | CPT/HCPCS: 36415; 82140 ==

== ENCOUNTER → 2024-12-25 | Outpatient (CLI) | payer MEDICARE, MEDICAID, SELFPAY ==
[2024-12-26 02:13] LABS: Ammonia 39.9 umol/L (11-51)
[2024-12-26 03:55] LABS: Vitamin D,25 Hydroxy 80.6 ng/mL (30-100)
[2024-12-28 17:07] LABS: KEPPRA (LEVETIRACETAM) 27.3 ug/mL (10.0-40.0)
== END | disposition home or self-care (01) ==
LOC: MTLAB 14:16 → LAB 14:57
PROVIDERS: PCP Family Medicine Geriatric Medicine; Referring Provider Psychiatry & Neurology Neurology; Visit Provider Psychiatry & Neurology Neurology
DX: G40.909 Epilepsy, unspecified, not intractable, without status epilepticus (principal); E55.9 Vitamin D deficiency, unspecified
CPT/HCPCS: 36415; 80177; 82140; 82306